=== PATIENT | male | born 1945 | race Two or more races ===

== ENCOUNTER 2021-12-16 09:37 | Emergency (ER) | payer OTHER, SELFPAY ==
--- NOTE | ~2021-12-16 | CT_ITS ---
EXAMINATION: CT HEAD WITHOUT CONTRAST CLINICAL INFORMATION: Right-sided facial paralysis COMPARISON: None TECHNIQUE: Contiguous axial imaging was performed from the skull base to vertex without intravenous administration of contrast. This CT examination was performed using dose optimization techniques as appropriate, variously including the following: *Automated exposure control *Adjustment of mA and/or kV according to patient size (this includes techniques or standardized protocols for targeted exams where dose is matched to indication/reason for exam; i.e. extremities or head) *Use of iterative reconstruction technique DLP: 774 mGy-cm FINDINGS: Prominence to the sulci and ventricles noted consistent with involutional change. No evidence of intra or extra-axial fluid collection or hemorrhage, mass or thickening. Calvarium is intact. CT/CT head/brain wo con IMPRESSION: No acute intracranial abnormalities.
[2021-12-16 09:56] VITALS: BP 166/78; PULSE 74; RESP 18; TEMP 36.9; O2SAT 98; BMI 25.5
[2021-12-16 14:18] VITALS: BP 160/92; PULSE 86; RESP 16; O2SAT 98
--- NOTE | 2021-12-16 14:42 | ED_ITS ---
HPI - General Adult General Chief complaint: Eye Problems Stated complaint: r eye itchy and swollen Time Seen by Provider: 12/16/21 13:56 Source: patient Mode of arrival: ambulatory History of Present Illness HPI narrative: 76-year-old male with no significant past medical history presenting to the ED complaining of right eye burning and itching x1 week. Reports acute on chronic clouding to right eye which improves after rubbing. Family member also reports right-sided facial asymmetry x1 week, and patient reports slow gait. Denies headache, fall, vision loss, nausea, vomiting, CP/SOB, focal weakness, numbness/tingling Onset (ago): week(s) Related Data Previous Rx's Medication Instructions Recorded carboxymethylcellulose sodium 1 % 1 drp ophthalmic-Right QID #15 mL 12/16/21 eye drops (Artificial Tears (carboxymethylcellulose)) prednisone 10 mg tablet 10 mg PO DAILY #45 tabs 12/16/21 valacyclovir 1 gram tablet 1,000 mg PO TID 7 days #21 tabs 12/16/21 Allergies Allergy/AdvReac Type Severity Reaction Status Date / Time No Known Allergies Allergy Verified 12/16/21 14:17 Review of Systems Review of Systems: Constitutional: No Fever, No Chills, No Night Sweats, No Fatigue, No Malaise ENT/Mouth: No Ear Pain, No Nasal Congestion, No Sinus Pain, No Hoarseness, No sore throat, No Rhinorrhea, No Swallowing Difficulty Eyes: No Eye Pain, No Swelling, No Vision Changes, +eye burning and itching, +blurry vision Cardiovascular: No Chest Pain, No SOB, No Edema, No Palpitations Respiratory: No Cough, No Sputum, No Wheezing, No Dyspnea Gastrointestinal: No Nausea, No Vomiting, No Diarrhea, No Constipation, No Abdominal pain Genitourinary: No Dysuria, No Urinary Frequency, No Hematuria, No Urinary Incontinence/retention, No Flank Pain Musculoskeletal: No joint pain, No Myalgias, No Joint Swelling Skin: No Skin Lesions, No rash Neuro: + Weakness, No Numbness, No Paresthesias, No Loss of Consciousness, No Dizziness, No Headache Yes all other systems are reviewed and are negative Constitutional: Constitutional: Reports as per HPI Neurologic: Reports Abnormal speech present [facility] Past Medical History Attestation statement: The following information was validated with the patient. Social History Social History Alcohol intake: never Patient Tobacco Use Status: Never used Tobacco Use of substances other than those prescribed or required for medical reasons: No Advance Directives: No Advance Directives Information Provided: No Physical Exam ED Vital Signs: Vital Signs - 24 hr 12/16/21 09:56 12/16/21 14:18 Temperature 98.4 F Pulse Rate 74 86 Respiratory Rate 18 16 Blood Pressure 166/78 H 160/92 H Pulse Oximetry 98 98 Oxygen Delivery Method Room Air Room Air BMI result Body Mass Index 25.5 Const General: cooperative, healthy appearing and no acute distress Orientation/consciousness: patient oriented x3 Limitations: no limitations HENMT Head: Yes normal to inspection and Yes atraumatic Ears: hearing grossly normal bilaterally, external ears normal, TM's normal bilaterally and mastoids normal General nose exam: Normal external nose present Face and sinus: Yes normal facial exam Mouth: Normal oral and palatal mucosa present and tongue normal Throat: Yes posterior oropharynx normal, Yes tonsils normal and Yes uvula midline Eyes Other: Right eye not blinking General: appearance normal, both eyes and all related structures EOM: EOMs intact bilaterally Neck Neck: Yes normal visual inspection and Yes no meningeal signs Resp Effort & Inspection: normal respiratory effort and no respiratory distress Auscultation: clear to auscultation bilaterally Cardio Rate: regular rate Heart sounds: S1 normal heart sound present and S2 normal heart sound present GI Inspection: Yes normal to inspection Palpation (GI): Soft to palpation, nontender, no guarding and not rigid General: Yes no CVA tenderness Back/Spine/Pelvis Back: no CVA tenderness Skin Rashes: no rashes Wounds: no wounds Neuro Other: + right-sided facial paralysis. Patient minimally able to raise eyebrows to right side (suspect Gordon's palsy recovery phase) General: patient oriented x3, tone normal and no meningeal signs Cognition (Neuro): normal cognition Speech: Abnormal speech present Gait exam (Neuro): Normal gait present (Steady slow gait) Motor exam (neuro): 5/5 motor strength present throughout Extrem General: Yes normal to inspection Course Course Course Narrative: -1554--no leukocytosis. Labs unremarkable CT head/brain wo con IMPRESSION: No acute intracranial abnormalities. ? -used fluorescein staining to evaluate patient's right eye, no appreciable corneal abrasions or ulcerations. > results discussed with patient with sleeve tailor including worrisome signs and symptoms and strict return precautions and need close follow-up with PCP. Medical Decision Making MDM Narrative Medical decision making narrative: 76-year-old male with no significant past medical history presenting to the ED complaining of right eye burning and itching x1 week. Reports acute on chronic clouding to right eye which improves after rubbing. Family member also reports right-sided facial asymmetry x1 week, and patient reports slow gait. On exam vital signs stable, right-sided facial paralysis noted with inability to blink right eye. 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 Case discussed with Dr. Christianson who also evaluated patient and is in agreement with plan. Slow steady gait. No ataxia. No other focal neuro deficits. Concern for subacute CVA/TIA. Eye complains suspected secondary to being unable to close eye. Plan: EKG, labs, Lyme titer, HSV, Head CT Medical Records Medical records reviewed: Yes I reviewed the patient's medical records. Lab Data Lab results reviewed: Yes I reviewed the patient's lab results. Result diagrams: 12/16/21 14:36 12/16/21 14:36 Labs: Lab Results 12/16/21 12/16/21 12/16/21 Range/Units 14:36 14:36 14:36 WBC 9.7 (4.8-10.8) X10*3/uL RBC 5.23 (4.60-5.80) X10*6/uL Hgb 14.9 (14.0-18.0) g/dl Hct 45.1 (42.0-52.0) % MCV 86.2 (80.0-98.0) fL MCH 28.5 (27.0-33.0) pg MCHC 33.0 (31.0-36.0) g/dl RDW 12.9 (11.0-16.0) % Plt Count 227 (160-400) X10*3/uL MPV 11.4 (9.4-12.4) fL Immature Gran % (Auto) 0.2 (0.0-0.4) % Neut % (Auto) 61.1 (45-73) % Lymph % (Auto) 27.5 (20-40) % [place] % (Auto) 10.1 (2-11) % Eos % (Auto) 0.7 (0-4) % Baso % (Auto) 0.4 (0-2) % Lymph # (Auto) 2.7 (1.2-4.9) X10*3/uL [place] # (Auto) 1.0 (0.1-1.2) X10*3/uL Eos # (Auto) 0.1 (0.0-0.4) X10*3/uL Baso # (Auto) 0.0 (0.0-0.2) X10*3/uL Abs Immat Gran (auto) 0.02 (0.00-0.03) X10*3/uL Absolute Neuts (auto) 5.9 (2.0-8.3) x10*3/uL Absolute Nucleated RBC 0.000 (0.0-0.012) X10*3/uL Nucleated RBC % (auto) 0.0 (0.0-0.2) /100WBC PT 12.3 (10.0-13.1) SEC INR 1.1 (0.9-1.1) APTT 32.2 (24.1-38.0) SEC Sodium 141 (135-145) mmol/L Potassium 4.4 (3.3-5.1) mmol/L Chloride 105 (96-108) mmol/L Carbon Dioxide 29 (22-29) mmol/L Anion Gap 11 L (12-20) BUN 15 (9-16) mg/dL Creatinine 1.16 (0.5-1.4) mg/dL Estim Creat Clear Calc 53.2 Estimated GFR > 60 Random Glucose 133 H (60-115) mg/dL Calcium 9.8 (8.4-10.2) mg/dL Magnesium 2.2 (1.6-2.6) mg/dL Total Bilirubin 0.5 (0.0-1.0) mg/dL Direct Bilirubin 0.2 (0.0-0.5) mg/dL AST 27 (5-37) U/L ALT 37 (0-40) U/L Alkaline Phosphatase 79 (39-117) U/L C-Reactive Protein 0.29 (< or = 0.50) mg/dL Total Protein 8.2 H (6.5-8.0) g/dL Albumin 4.4 (3.5-5.0) g/dL Discharge Plan Discharge Clinical Impression: Gordon's palsy Patient Disposition: Home, Self-Care Instructions: Gordon Palsy (ED) Additional Instructions: Your head CT is unremarkable. Your blood work was reassuring. 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 This may take weeks to months to improved/resolved. You should be performing facial exercises at home. Tape your eye shut at night so it does not get dry. Use artificial tears as needed Acyclovir is a and antiviral medication, take as prescribed. In addition take prednisone which is steroid Please of close follow-up with your doctor. If symptoms persist or worsen, you develop constant worsening weakness, headache return to the emergency department Tu tomograf?a computarizada de la phoebe no tiene nada especial. Thomas an?lisis de reema fue tranquilizador. Tiene par?lisis de Gordon, que es par?lisis del nervio facial. [place] puede tardar semanas o meses en mejorarse o resolverse. Deber?as estar realizando ejercicios faciales en casa. Divya el andre con cinta adhesiva por la noche para que no se seque. Use l?grimas artificiales seg?n sea necesario El aciclovir es un medicamento antiviral, t?vincent seg?n lo prescrito. Adem?s, tome prednisona que es un esteroide. Por favor de seguimiento cercano con thomas m?dico. Si los s?ntomas persisten o empeoran, desarrolla awilda debilidad que empeora constantemente, dolor de phoebe, regrese al departamento de emergencias. Prescriptions: New valacyclovir 1 gram tablet 1,000 mg PO TID 7 Days Qty: 21 0RF prednisone 10 mg tablet 10 mg PO DAILY Qty: 45 0RF Rx Instructions: Day 1 through Day 5: Take 60 mg (6 tabs) daily Day 6: Take 50 mg (5 tabs) Day 7: Take 40 mg (4 tabs) Day 8: Take 30 mg (3 tabs) Day 9: Take 20 mg (2 tabs) Day 10: Take 10 mg (1 tab) Artificial Tears (cmc) 1 % drops 1 drp ophthalmic-Right QID Qty: 15 0RF Referrals: [facility] [place] [facility] [Provider Group] [facility] [place] Community Navigation [Provider Group] [facility] [place] Primary CareAmirah [Provider Group] [facility] Primary CareTasha [Provider Group] [facility] Walk [facility] [Provider Group] Print Language: Kazakh
[2021-12-16 14:47] LABS: MANUAL DIFF FLAG NO
[2021-12-16 14:48] LABS: Basophils Percent Auto 0.4 % (0-2); Eosinophils Absolute Auto 0.1 X10*3/uL (0.0-0.4); Eosinophils Percent Auto 0.7 % (0-4); Hematocrit 45.1 % (42.0-52.0); Hemoglobin 14.9 g/dl (14.0-18.0); Imm Gran Abs Auto 0.02 X10*3/uL (0.00-0.03); Imm Gran Pct Auto 0.2 % (0.0-0.4); Lymphocytes Absolute Auto 2.7 X10*3/uL (1.2-4.9); Lymphocytes Percent Auto 27.5 % (20-40); Mean Corpuscular Hemoglobin 28.5 pg (27.0-33.0); Mean Corpuscular Volume 86.2 fL (80.0-98.0); Mean Platelet Volume 11.4 fL (9.4-12.4); Monocytes Percent Auto 10.1 % (2-11); Neutrophils Absolute Auto 5.9 x10*3/uL (2.0-8.3); Neutrophils Percent Auto 61.1 % (45-73); Platelet Count 227 X10*3/uL (160-400); Red Blood Count 5.23 X10*6/uL (4.60-5.80); Red Cell Distribution Width 12.9 % (11.0-16.0); White Blood Count 9.7 X10*3/uL (4.8-10.8)
[2021-12-16 14:56] LABS: INTERNATIONAL NORM RATIO 1.1 (0.9-1.1); Prothrombin Time 12.3 SEC (10.0-13.1)
[2021-12-16 14:59] LABS: Partial Thromboplastin Time 32.2 SEC (24.1-38.0)
[2021-12-16 15:07] LABS: Alanine Aminotransferase 37 U/L (0-40); Albumin Level 4.4 g/dL (3.5-5.0); Alkaline Phosphatase 79 U/L (39-117); Anion Gap 11 (12-20); Aspartate Amino Transferase 27 U/L (5-37); Bilirubin Direct 0.2 mg/dL (0.0-0.5); Bilirubin Total 0.5 mg/dL (0.0-1.0); Blood Urea Nitrogen 15 mg/dL (9-16); C Reactive Protein 0.29 mg/dL (< or = 0.50); Calcium 9.8 mg/dL (8.4-10.2); Carbon Dioxide 29 mmol/L (22-29); Chloride 105 mmol/L (96-108); Creatinine Clr Calc Pharmacy 53.2; Estimated Glomerular Filt Rate > 60; Glucose Random 133 mg/dL (60-115); Magnesium 2.2 mg/dL (1.6-2.6); Potassium 4.4 mmol/L (3.3-5.1); Sodium 141 mmol/L (135-145); Total Protein 8.2 g/dL (6.5-8.0)
[2021-12-16 18:38] LABS: Erythrocyte Sedimentation Rate 14 MM/HR (0-15)
[2021-12-18 05:12] LABS: Lyme Blot 0.93 index
[2021-12-18 05:32] LABS: Herpes Simplex Type 1 IgG >58.00 index; Herpes Simplex Type 2 IgG <0.90 index
[2021-12-20 14:23] LABS: 18 KD (IgG) Band NON-REACTIVE; 23 KD (IgG) Band NON-REACTIVE; 23 KD (IgM) Band NON-REACTIVE; 28 KD (IgG) Band NON-REACTIVE; 30 KD (IgG) Band REACTIVE; 39 KD (IgM) Band NON-REACTIVE; 39KD (IgG) Band NON-REACTIVE; 41 KD (IgM) Band REACTIVE; 41KD (IgG) Band NON-REACTIVE; 45 KD (IgG) Band REACTIVE; 58 KD (IgG) Band REACTIVE; 66 KD (IgG) Band NON-REACTIVE; 93 KD (IgG) Band REACTIVE; Lyme IgG Blot Interp NEGATIVE (NEGATIVE); Lyme IgM Blot Interp NEGATIVE (NEGATIVE)
[2021-12-20 14:59] LABS: Lyme Abs Screen EQUIVOCAL
== END 2021-12-16 16:47 | disposition home or self-care (01) ==
PROVIDERS: Physician Assistant; Emergency Provider Internal Medicine
DX: G51.0 Bell's palsy (principal); H57.11 Ocular pain, right eye; H53.8 Other visual disturbances
CPT/HCPCS: 36415; 70450; 80048; 80076; 83735; 85025; 85610; 85652; 85730; 86140; 86617; 86618; 86695; 86696; 87040; 99284

== ENCOUNTER 2022-02-23 14:55 | Outpatient (REF) | payer OTHER, SELFPAY ==
--- NOTE | ~2022-02-23 | MR_ITS ---
EXAMINATION: MR LUMBAR SPINE WITHOUT CONTRAST CLINICAL INFORMATION: 76-year-old with lumbago and left sciatica. COMPARISON: None. TECHNIQUE: MRI of the lumbar spine was obtained using routine sequences without contrast. FINDINGS: Coronal Alignment: There is mild lower lumbar levocurvature. Sagittal Alignment: Trace anterolisthesis at L2-L3 without spondylolysis. Otherwise normal lumbosacral alignment. Lumbosacral Junction: Normal. 5 kqq-ptf-ujsthpa lumbar-type vertebral bodies. Vertebral Bodies: Vertebral body heights are well maintained. No compression fractures. Disc Spaces and Endplates: Severe disc space height loss at L4-L5 with partial ankylosis, disc desiccation and spondylosis at this level. Mild disc space height loss and disc desiccation at L5-S1 with spondylosis noted. Disc desiccation at L2-L3 and L3-L4 without significant disc space height loss, with prominent anterolateral spondylosis at L2-L3 and mild spondylosis at L3-L4. There is prominent anterolateral spondylosis deformans at T12-L1 and T11-T12 and a partially imaged T10-T11 level. There is mild disc space height loss and disc desiccation at T11-T12. Spinal Canal: There are congenitally short pedicles throughout the lumbar spine, with a mild degree of developmental lumbar spinal canal stenosis suspected. Bone Marrow: Type II degenerative marrow signal changes noted along the endplates at L4-L5. No suspicious marrow replacing process or bone marrow edema. Conus Medullaris: Terminates at L2. Morphology and signal is normal. Intradural Nerve Roots: Crowding of the intradural nerve roots at L2-L3, L3-L4 and L4-L5 consistent with multilevel spinal stenosis. L5-S1: Concentric disc bulging is noted with a superimposed central partially calcified disc herniation with flattening of the central dural sac with mild caudal migration. Ligament of flavum thickening is noted with mxraggzz-cp-osqhaj bilateral facet arthropathy. There is ajgy-yt-pyeuqjgx central spinal canal stenosis and severe bilateral subarticular recess stenosis, with impingement on the traversing S1 nerve roots bilaterally in the subarticular zones. Moderate bilateral neural foraminal stenosis is noted, with disc bulging filling the inferior neural foramina bilaterally and probably slightly contacting the exiting L5 nerve roots. L4-L5: There is concentric osteophytic ridging, with flattening of the ventral dural sac, with ligamentum flavum thickening and ukwi-bi-tnhkulhf facet arthropathy. There is mild central spinal canal stenosis and there is moderate right and severe left lateral recess stenosis with encroachment on the traversing left L5 nerve root. Moderate bilateral neural foraminal stenosis is noted with osteophytic ridging probably contacting the extraforaminal L4 nerve roots bilaterally. L3-L4: Concentric disc bulging is noted with right lateral concentric annular fissuring and flattening of the ventral dural sac. Ligamentum flavum thickening and moderate bilateral facet arthrosis is noted with a right-sided facet joint effusion and periarticular edema adjacent to the left facet joint with mild subchondral marrow edema consistent with active inflammatory changes at both facet joints. Severe central spinal canal stenosis is noted with the marked crowding of the intradural nerve roots with severe bilateral lateral recess stenosis and compromise of the traversing L4 nerve roots bilaterally. Moderate bilateral neural foraminal stenosis is noted with disc bulging impinging on the extraforaminal L3 nerve roots bilaterally. L2-L3: Diffuse disc bulging is noted with mild anterolisthesis. Right lateral concentric annular fissuring noted. Flattening of the ventral dural sac is noted with ligamentum flavum thickening and mild-to moderate facet arthropathy. Imqljunm-yc-gufell central spinal canal stenosis is noted with crowding of the intradural nerve roots, with severe bilateral subarticular recess stenosis. There is hpwo-jj-rweclxdt bilateral neural foraminal stenosis, with disc bulging abutting the extraforaminal L2 nerve roots bilaterally. L1-L2: Shallow broad-based left subarticular disc protrusion noted. No significant facet arthrosis. No significant canal or neural foraminal stenosis. Disc bulging at T11-T12 noted which was not imaged in the axial plane, with the bilateral facet arthrosis noted, with moderate left-sided and mild right-sided neural foraminal stenosis and mild central canal stenosis. Disc bulging contacts the ventral aspect of the spinal cord at this level without adilia cord compression. Paraspinal/Retroperitoneal: The visualized paravertebral soft tissues are unremarkable. There is a 1 cm simple-appearing exophytic cortical cyst lower pole right kidney. Limited evaluation.?No specific follow up recommended based on the current ACR Best Practice Guidelines.? MR/MR lumbar spine wo con IMPRESSION: 1. Mild lower lumbar levocurvature noted with trace anterolisthesis at L2-L3 without spondylolysis. 2. Multilevel discogenic degenerative changes and spondylosis with partial ankylosis of the L4-L5 intervertebral disc space. 3. Multilevel disc bulging and L4-L5 osteophytic ridging with multilevel bilateral facet arthropathy as discussed by level above, with severe spinal canal stenosis at L3-L4 and xqgtbudo-zk-xddwft spinal canal stenosis at L2-L3, mild spinal canal stenosis at L4-L5 and vmwt-do-rhbghllm spinal canal stenosis at L5-S1. 4. Multilevel bilateral subarticular/lateral recess stenosis as detailed by level above with multilevel traversing nerve root impingement. 5. Multilevel bilateral neural foraminal stenosis predominantly moderate in degree with multilevel exiting nerve root encroachment, most apparent at L3-L4 bilaterally.
== END 2022-02-23 14:56 | disposition home or self-care (01) ==
LOC: HO.MRI 14:55
PROVIDERS: Visit Provider Nurse Practitioner Primary Care
DX: M54.42 Lumbago with sciatica, left side (principal); G89.29 Other chronic pain
CPT/HCPCS: 72148

== ENCOUNTER 2022-05-01 13:37 | Emergency (ER) | payer OTHER, SELFPAY ==
--- NOTE | ~2022-05-01 | XR_ITS ---
EXAMINATION: XR CHEST CLINICAL INFORMATION: Cough COMPARISON: None TECHNIQUE: 2 views of the chest were obtained. FINDINGS: No significant abnormality is noted involving the heart, lungs, mediastinum, bony thorax or soft tissues. XR/XR chest 2V IMPRESSION: Unremarkable examination.
[2022-05-01 13:58] VITALS: BP 128/78; PULSE 83; RESP 16; TEMP 37.6; O2SAT 96; BMI 31.0
[2022-05-01 15:06] LABS: Influenza A PCR NEGATIVE (Negative); Influenza B PCR NEGATIVE (Negative); Resp Syncy Virus RNA Qual PCR NEGATIVE (Negative); SARS COV2 PCR INHOUSE NEGATIVE (Negative)
[2022-05-01] MEDS: Erythromycin Base 0.5% Oph Oin 1 GM TUBE 1 CM EYE-BOTH (15:17)
--- NOTE | 2022-05-01 15:30 | ED_ITS ---
HPI - Eye Problem General Chief complaint: Eye Problems Stated complaint: cough eye issue fever Time Seen by Provider: 05/01/22 14:26 Source: patient and family Mode of arrival: ambulatory Limitations: no limitations History of Present Illness HPI Narrative: 77 yo male presents to the ER for evaluation of red, swollen eyes with discharge for the last couple of days. He has also had a cough and not been feeling well. He saw his primary care doctor yesterday was prescribed loratadine and Tessalon. When he woke up this morning his eyes were crusted shut and he had purulent discharge. He reports his eyes are burning and red. He denies any vision changes. No fever or chills. No chest pain or shortness of breath but family reports he gets and coughing fits where he had a difficult time catching his breath. He is not bringing up any phlegm. No known sick contacts. MD chief complaint: eye pain and eye redness Onset (ago): day(s) Onset description: gradual Location: both eyes Eye Symptoms: redness and discharge Place: home Mechanism: none Severity: moderate If Pain, Quality: burning and aching Associated symptoms: cough Treatments Prior to Arrival: none Related Data Previous Rx's Medication Instructions Recorded carboxymethylcellulose sodium 1 % 1 drp ophthalmic-Right QID #15 mL 12/16/21 eye drops (Artificial Tears (carboxymethylcellulose)) prednisone 10 mg tablet 10 mg PO DAILY #45 tabs 12/16/21 valacyclovir 1 gram tablet 1,000 mg PO TID 7 days #21 tabs 12/16/21 doxycycline monohydrate 100 mg 100 mg PO BID 21 days #42 tabs 12/20/21 tablet azithromycin 250 mg tablet See Rx Instructions PO .COMPLEX #6 05/01/22 (Zithromax Z-Gama) tabs erythromycin 5 mg/gram (0.5 %) eye 0.5 inch ophthalmic (eye) BID #3.5 05/01/22 ointment grams Allergies Allergy/AdvReac Type Severity Reaction Status Date / Time No Known Allergies Allergy Verified 12/16/21 14:17 Review of Systems Review of Systems: Constitutional: No Fever, No Chills ENT/Mouth: No sore throat, No Rhinorrhea, No Swallowing Difficulty Eyes: + Eye Pain, + Swelling, + Redness Cardiovascular: No Chest Pain, No SOB, No Orthopnea, No Edema Respiratory: + Cough, No Sputum, No Wheezing, No dyspnea Gastrointestinal: No Nausea, No Vomiting, No Diarrhea, No abdominal Pain Musculoskeletal: No joint pain, + Myalgias Skin: No Skin Lesions, No rash Neuro: + Weakness, No Numbness, No Dizziness, + Headache Psych: No Anxiety/Panic, No Depression Heme/Lymph: No Bruising, No Lymphadenopathy PMFSH Social History Social History Alcohol intake: never Patient Tobacco Use Status: Never used Tobacco Advance Directives: No Advance Directives Information Provided: No Physical Exam Vital Signs: Vital Signs: Last Vital Signs Temp 99.6 F 05/01/22 13:58 Pulse 83 05/01/22 13:58 Resp 16 05/01/22 13:58 BP 128/78 05/01/22 13:58 Pulse Ox 96 05/01/22 13:58 O2 Del Method 05/01/22 13:58 BMI result Body Mass Index 31.0 Appearance: Alert. Oriented X3. No acute distress. Eyes: Bilateral Periorbital swelling, mild and generalized without erythema. Sclera is injected bilaterally with purulent discharge bilaterally. Pupils equal, round and reactive to light. EOMI. ENT: Pharynx normal. Moist mucous membranes. Neck: Normal inspection. Neck supple. CVS: Normal heart rate and rhythm. Pulses normal. Respiratory: No respiratory distress. Breath sounds normal. Skin: Skin warm and dry. Normal skin color. Normal skin turgor. No rashes. Extremities: No lower extremity edema. Neuro: Oriented X 3. Grossly normal, nonfocal Course Course Course Narrative: 77-year-old male presents to the ER for evaluation of swollen, puffy eyes associated with redness and purulent drainage, that is worsening for the last few days. Family also reports a cough. On arrival to the ER he has a low-grade fever of 99.6. He is hemodynamically stable and saturating 96% on room air. He appears well but does have uncomfortable appearing purulent drainage from his eyes. Most likely bacterial conjunctivitis. Will check viral swabs. Will check chest x-ray given cough. Reevaluation(s) Reevaluation #1: Chest x-ray is clear no pneumonia. Viral PCR is negative. He was given erythromycin ointment with improvement in his eye symptoms. Will prescribe anti biotics for probable bronchitis. He was encourage follow-up with his primary care doctor. Stable for discharge home with outpatient follow-up. Medications Administered Discontinued Medications Generic Name Dose Route Start Last Admin Trade Name Stacey PRN Reason Stop Dose Admin Erythromycin 1 cm 05/01/22 14:38 05/01/22 15:17 Erythromycin Base 0.5% Oph Oin 1 Gm Tube EYE-BOTH 05/01/22 14:39 1 cm ONCE ONE Administration Discharge Plan Discharge Clinical Impression: Bacterial conjunctivitis, Bronchitis Patient Disposition: Home, Self-Care Instructions: Acute Bronchitis (ED), Conjunctivitis (ED) Additional Instructions: Your x-ray today did not show any signs of pneumonia. Urine negative for COVID, flu, RSV. Use the prescribed antibiotic ointment as directed. Use warm compresses to her eyes several times a day. Take the prescribed antibiotic as directed, complete the entire course. Rest drink plenty of fluids. Take wcka-klz-vmpblro cold and flu medications as needed for your symptoms. Recommend Mucinex 1200 mg 2 times a day for 5 days. Follow-up with primary care doctor next week. If you develop new or worsening symptoms call 911 or come back to the ER for further evaluation. Thomas radiograf?a de hoy no mostr? signos de neumon?a. Orina negativa para COVID, gripe, RSV. Use la pomada antibi?dara recetada seg?n las indicaciones. Use compresas tibias en vivian ojos varias veces al d?a. [place] el antibi?naveed recetado seg?n las indicaciones, complete todo el curso. Descansa kash muchos l?quidos. [place] medicamentos de venta jeff para el resfriado y la gripe seg?n sea necesar io para vivian s?ntomas. Recomiende Mucinex 1200 mg 2 veces al d?a marichuy 5 d?as. Seguimiento con el m?dico de atenci?n primaria la pr?xima semana. Si desarrolla s?ntomas nuevos o que empeoran, llame al 911 o regrese a la roxanna de emergencias para awilda evaluaci?n adicional. Prescriptions: New erythromycin 5 mg/gram (0.5 %) ointment 0.5 inch ophthalmic (eye) BID Qty: 3.5 0RF azithromycin [Zithromax Z-Gama] 250 mg tablet See Rx Instructions .ROUTE .COMPLEX Qty: 6 0RF Rx Instructions: take 500 mg today (day 1), then 250 mg for 4 days (days 2-5) No Action valacyclovir 1 gram tablet 1,000 mg PO TID 7 Days Qty: 21 0RF prednisone 10 mg tablet 10 mg PO DAILY Qty: 45 0RF Rx Instructions: Day 1 through Day 5: Take 60 mg (6 tabs) daily Day 6: Take 50 mg (5 tabs) Day 7: Take 40 mg (4 tabs) Day 8: Take 30 mg (3 tabs) Day 9: Take 20 mg (2 tabs) Day 10: Take 10 mg (1 tab) Artificial Tears (cmc) 1 % drops 1 drp ophthalmic-Right QID Qty: 15 0RF doxycycline monohydrate 100 mg tablet 100 mg PO BID 21 Days Qty: 42 0RF Referrals: Name,MD Alex [Primary Care Provider] - Print Language: Tajik
== END 2022-05-01 15:40 | disposition home or self-care (01) ==
PROVIDERS: Physician Assistant; Emergency Provider Emergency Medicine; PCP Internal Medicine Geriatric Medicine
DX: J40 Bronchitis, not specified as acute or chronic (principal); H10.9 Unspecified conjunctivitis; R50.9 Fever, unspecified; Z20.822 Contact with and (suspected) exposure to COVID-19
CPT/HCPCS: 0241U; 71046; 99282; 99283

== ENCOUNTER 2022-06-29 10:18 | Outpatient (REF) | payer OTHER, SELFPAY | END 2022-06-29 10:19 | disposition home or self-care (01) | LOC: HO.LAB 10:18 | PROVIDERS: PCP Internal Medicine Geriatric Medicine; Visit Provider Urology | DX: N39.0 Urinary tract infection, site not specified (principal); N47.1 Phimosis | CPT/HCPCS: 51798; 87086; 99202 ==

== ENCOUNTER → 2022-07-02 13:39 | Outpatient (REF) | payer OTHER, SELFPAY ==
--- NOTE | 2022-07-02 14:43 | CA_ITS ---
Transthoracic Echocardiogram Patient (Last, First, Middle): Pepe Chau, Gender: Male Date of : 1945 Age: 77 Procedure Date: 07/02/2022 Procedure Type: Transthoracic Echocardiogram Location: OP Height: 175.26 cm Weight: 96.16 kg BSA: 2.12 m2 Heart Rate: bpm BP: 140 / 84 mmHg Storage Garage Manager: ALESSIO Referring MD: Alex Khoury MD Equine Dentist: Ash Gracia MD Symptoms: CARDIAC MURMUR,UNSPECIFIED Study Quality: Good ECG Rhythm: Sinus Conclusions: - 1. Normal LV systolic function with mild LVH with impaired relaxation filling pattern 2. Udbk-uw-huaemmhc aortic stenosis and mild aortic regurgitation 3. Normal RV systolic pressure 4. Mildly dilated ascending aorta at 3.8 cm 5. No pericardial effusion Findings Left Ventricle Normal left ventricular size and systolic function. There is mildly increased left ventricular wall thickness. The visually estimated ejection fraction is between 60-65%. Spectral Doppler is indicative of an impaired relaxation filling pattern. E/E prime ratio is between 8 and 15 consistent with indeterminate filling pressures. Right Ventricle Normal right ventricular cavity size and systolic function. Atria The left atrium is likely dilated. There is no evidence of interatrial shunt. The right atrium is normal in size. Aortic Valve There is moderate calcification of the aortic valve. There is mild to moderate aortic valve stenosis. The mean gradient is 26 mmHg. The aortic valve area is 1.54 cm2. There is mild aortic valve regurgitation. Mitral Valve There is mild anterior and posterior mitral leaflet thickening. There is mild mitral annular calcification. There is trace mitral valve regurgitation. There is no mitral valve stenosis. Pulmonic Valve The pulmonic valve was not well visualized. Tricuspid Valve Normal tricuspid valve structure. There is mild tricuspid valve regurgitation. The right ventricular systolic pressure is normal. The right ventricular systolic pressure is 28 mmHg. Normal right atrial pressure. There is no evidence of pulmonary hypertension. Great Vessels There is mild dilatation of the ascending aorta measuring 3.80 cm. Venous The inferior vena cava is normal in size and collapses greater than 50% with inspiration. Pericardium/Pleural There is no evidence of pericardial effusion. Prior Study Comparison No prior study available for comparison. Measurements 2D Linear Measurements IVSd: 1.54 0.6-0.9/0.6-1.0 cm LVIDd: 4.13 3.9-5.3/4.2-5.9 cm LVIDd Index: 1.95 2.4-3.2/2.2-3.1 cm/m2 LVIDs: 2.39 2.0-3.6 cm LVPWd: 1.32 0.7-1.1 cm Ao Root: 3.30 2.1-3.5 cm LA Diam: 3.60 2.7-3.8/3.0-4.0 cm LAIDs Index: 1.70 1.5-2.3 cm/m2 LV Mass: 281.93 67-162/88-224 g LV Mass Index: 132.99 43-95/49-115 g/m2 LVOT Diam: 2.30 3.0+(-)1.3 cm Mitral Valve MV Pk E: 0.69 MV PK A: 0.67 MV Decel Time: 140.00 E/A: 1.00 E'Lateral: 7.94 E'Medial: 5.98 E/E' Med: 11.50 E/E' Lat: 8.60 PHT: 41.00 MVA PHT: 5.37 Decel [place]: 4.90 Aortic Valve AoV Pk Dylon: 3.57 AoV Mn Dylon: 2.36 AoV VTI: 0.80 AoV Pk Grad: 51.00 Aov Mn Grad: 26.00 IRWIN Cont.VTI: 1.54 LVOT LVOT Pk Dylon: 1.19 LVOT Mn Dylon: 0.83 LVOT VTI: 0.30 LVOT Pk Grad: 6.00 LVOT Mn Grad: 3.00 LVOT Diam: 2.30 LVOT Area: 4.15 Diastolic Function MV Pk E: 0.69 MV Pk A: 0.67 E/A: 1.00 E'Medial: 5.98 E/E' Med: 11.50 E' Laterial: 7.94 E/E' Lat: 8.60 Right Ventricle TAPSE (mm): 27.00 TVS' Dylon: 14.00 Tricuspid Valve TR Pk Dylon: 2.48 TR Pk Grad: 25.00 RA Press: 3.00 RVSP: 28.00 Great Vessels Aorta Ao Root-2D: 3.30 2.0-3.7 cm Ao Asc: 3.80 2.1-3.4 cm Updated in Other Vendor System with Status of Final Ash Gracia MD electronically signed on 07/03/2022 3:02:06 PM with status of Final
== END ==
LOC: HO.CARD 13:39
PROVIDERS: PCP Internal Medicine Geriatric Medicine; Visit Provider Internal Medicine Geriatric Medicine
DX: R01.1 Cardiac murmur, unspecified (principal)
CPT/HCPCS: 93306

== ENCOUNTER 2022-10-17 12:41 | Emergency (ER) | payer OTHER, SELFPAY ==
--- NOTE | ~2022-10-17 | CT_ITS ---
EXAMINATION: CT CERVICAL SPINE WITHOUT CONTRAST CLINICAL INFORMATION: Neck pain COMPARISON: None available. TECHNIQUE: 3 minutes thin axial and reformatted 2 minutes thin sagittal coronal images of cervical spine were obtained without contrast. This CT examination was performed using dose optimization techniques as appropriate, variously including the following: *Automated exposure control *Adjustment of mA and/or kV according to patient size (this includes techniques or standardized protocols for targeted exams where dose is matched to indication/reason for exam; i.e. extremities or head) *Use of iterative reconstruction technique DLP: 623 mGy-cm FINDINGS: There is normal cervical lordosis. The vertebral heights, alignment and disc heights are normal. There is moderate ventral spondylosis C4-C5 C5-C6 and C6-C7 disc levels and mild posterior spondylosis at C3-C4, C5-C6 disc levels. The craniovertebral junction and the C1-C2 alignment is normal. There is moderate C1-C2 hypertrophic bony changes. At C3-C4 disc level there is posterior spondylosis bulge complex with mild to moderate AP canal stenosis. There is moderate right neural foraminal narrowing from uncovertebral atrophy changes. At C4-C5 disc level there is no cement is posterior herniation or spinal stenosis. There is mild narrowing of right neural foramina from uncovertebral hypertrophic changes. At C5-C6 disc level there is no sign of disc bulge, herniation or spinal stenosis. At C6-7 disc level there is moderate posterior spondylosis bulge complex with mild to moderate AP canal stenosis. There is bilateral moderate right neural from narrowing from uncovertebral hypertrophic changes. Rest of the disc levels are unremarkable. The prevertebral and paravertebral soft tissues are normal the. The airway is widely patent. Prevertebral and bilateral soft tissues are normal. The lung apices are clear. Thyroid lobes, submandibular and parotid glands are symmetric and normal. There is mild mucoperiosteal thickening bilateral maxillary sinuses. CT/CT cervical spine wo IV con IMPRESSION: Degenerative changes of cervical spine as described above. No visible acute fracture or dislocation. Fleischner guidelines were followed.
[2022-10-17 12:43] VITALS: BP 145/77; PULSE 96; RESP 20; TEMP 36.1; O2SAT 98; BMI 29.5
[2022-10-17] MEDS: Ketorolac Tromethamine 30 MG/ML VIAL IM (14:48)
[2022-10-17] MEDS: Cyclobenzaprine HCl 10 MG TABLET PO (14:49)
[2022-10-17] MEDS: predniSONE 20 MG TABLET 60 MG PO (14:49)
--- NOTE | 2022-10-17 15:48 | ED_ITS ---
HPI - General Adult General Chief complaint: Extremity Problem Stated complaint: Neck Pain No Injury Time Seen by Provider: 10/17/22 13:38 Source: patient Mode of arrival: ambulatory Limitations: no limitations History of Present Illness HPI narrative: 89-year-old male history of diabetes, Gordon's palsy, and lumbar spine arthritis presents to the ED for neck pain for the past 4 days as worse on movement. Patient states he has been sleeping with airplane Pillow and thinks that is causing him to have the neck pain due to sleeping awkward position. Patient denies any trauma, headache, chest pain, fever, chills, dizziness, or rash. Related Data Home Medications Medication Instructions Recorded Confirmed atorvastatin 10 mg tablet 10 mg PO DAILY 06/29/22 08/17/22 tamsulosin 0.4 mg capsule 0.8 mg PO QPM 06/29/22 08/17/22 baclofen 20 mg tablet 20 mg PO TID 08/17/22 08/17/22 nabumetone 750 mg tablet 750 mg PO BID PRN Pain 08/17/22 08/17/22 sitagliptin phosphate 50 1 tab PO QPM 08/17/22 08/17/22 mg-metformin 1,000 mg tablet (Janumet) Previous Rx's Medication Instructions Recorded valacyclovir 1 gram tablet 1,000 mg PO TID 7 days #21 tabs 12/16/21 ketorolac 10 mg tablet 10 mg PO QID PRN pain 5 days #20 10/17/22 tabs prednisone 20 mg tablet 40 mg PO DAILY 5 days #10 tabs 10/17/22 Allergies Allergy/AdvReac Type Severity Reaction Status Date / Time No Known Allergies Allergy Verified 06/29/22 10:26 Review of Systems Review of Systems: Posterior neck pain Yes all other systems are reviewed and are negative [facility] Past Medical History Medical History (Updated 10/17/22 @ 15:57 by SHEREE Howard) Gordon's palsy BPH (benign prostatic hyperplasia) Chronic back pain Diabetes mellitus, type II Elevated cholesterol Lyme disease Nocturia Phimosis Spinal stenosis Surgical History (Updated 08/17/22 @ 11:32 by Ritu Martinez RN) No pertinent past surgical history Social History Social History Housing Other:: 2nd floor Are you a primary director career services to a significant other at home: No Do you presently have visiting nurse or other home services: No Alcohol intake: never Patient Tobacco Use Status: Never used Tobacco Advance Directives: No Advance Directives Information Provided: Yes Physical Exam ED Vital Signs: Vital Signs - 24 hr 10/17/22 12:43 Temperature 96.9 F Pulse Rate 96 Respiratory Rate 20 Blood Pressure 145/77 H Pulse Oximetry 98 Oxygen Delivery Method Room Air BMI result Body Mass Index 29.5 Const General: cooperative, healthy appearing, comfortable, no acute distress, well developed, alert, awake and Physically active Orientation/consciousness: oriented to person, oriented to place, oriented to time and patient oriented x3 HENMT Head: Yes normal to inspection, Yes No palpable skull fracture present, Yes normocephalic, Yes atraumatic and No abrasion Eyes General: appearance normal, both eyes and all related structures Pupils: Equal, round and reactive pupils present Neck Neck: Yes normal visual inspection, Yes full ROM, Yes no lymphadenopathy, Yes no meningeal signs, Yes trachea midline, Yes supple, No anterior neck swelling, No bilateral parotid enlargement, No lymphadenopathy, No midline deformity, No positive Brudzinski's sign, No positive Kernig's sign and Yes tender (Positive for posterior cervical spine tenderness on palpation and movement) Chest Chest palpation & inspection: normal inspection of the chest and normal palpation of entire chest wall Resp Effort & Inspection: normal respiratory effort and able to speak in complete sentences Auscultation: clear to auscultation bilaterally Cardio Jugular venous distension: no JVD Heart sounds: S1 normal heart sound present and S2 normal heart sound present GI Inspection: Yes normal to inspection and No abdominal wall ecchymosis Palpation (GI): Soft to palpation, not firm, nontender, no guarding and not rigid General: No CVA tenderness and Yes no CVA tenderness Back/Spine/Pelvis Back: no CVA tenderness, No CVA tenderness and No back tenderness Skin General skin exam: no rashes or lesions noted and elasticity normal Neuro General: oriented to person, oriented to place, oriented to time, patient oriented x3, gait normal, tone normal, moves all extremities, Normal light touch and pain sensation, no meningeal signs, no focal motor deficits, CN's II-XI intact bilaterally and normal sensation to monofilament Cranial nerves: Yes Equal, round and reactive pupils present Extrem General: Yes normal to inspection and Yes full ROM Psych Appearance: grossly normal, well kempt and not disheveled Course Course Course Narrative: 77-year-old with posterior neck pain will be sent for cervical spine CT. Medications Administered Discontinued Medications Generic Name Dose Route Start Last Admin Trade Name Stacey PRN Reason Stop Dose Admin Cyclobenzaprine HCl 10 mg 10/17/22 14:00 10/17/22 14:49 Cyclobenzaprine Hcl 10 Mg Tablet PO 10/17/22 14:01 10 mg ONCE ONE Administration Ketorolac Tromethamine 30 mg 10/17/22 14:00 10/17/22 14:48 Ketorolac Tromethamine 30 Mg/Ml Vial IM 10/17/22 14:01 30 mg ONCE ONE Administration Prednisone 60 mg 10/17/22 14:00 10/17/22 14:49 Prednisone 20 Mg Tablet PO 10/17/22 14:01 60 mg ONCE ONE Administration Medical Decision Making Medical Decision Making MDM Narrative: 77-year-old male presents to the ED for cervical spine pain/neck pain worse on movement. Patient denies any trauma, fever, chills, or headache. Physical exam negative for signs of meningitis. Cervical spine CT scan shows cervical radic ulopathy. Negative for signs of upper extremity contrapment or paralysis on exam. Neuro exam intact of all extremities. Negative for signs of neuro deficit. Patient given Toradol, prednisone, and muscle relaxer Differential Diagnosis Differential Diagnoses: The differential diagnosis associated with the presentation includes (Cervical spine fracture, cervical spine subluxation, meningitis, cervical radiculopathy) Admission/Observation Consideration of admission/observation: Escalation of care including admission/observation considered Independent Interpretation I performed an independent interpretation of an: CT Scan Radiology Impression Discussion of test interpretation with radiology: I have reviewed the radiologist's reading. Tests considered The following testing was considered but not selected: hEad CT Prescription Management I considered prescription management with: Pain Medication Discharge Plan Discharge Clinical Impression: Cervical radiculopathy Patient Disposition: Home, Self-Care Instructions: Cervical Radiculopathy (ED) Additional Instructions: Thomas tomograf?a computarizada de thomas clark mostr? awilda radiculopat?a cervical severa que es indicativa de artritis degenerativa. Necesita un seguimiento con el proveedor de atenci?n primaria para areli si se realiz? awilda resonancia magn?dara para verificar si hay alg?n pinzamiento nervioso y tambi?n ser remitida a fisioterapia o cirujano de columna si es necesario. Regrese al servicio de urgencias de inmediato si presenta par?lisis en las extremidades superiores, entumecimiento/hormigueo, dolor en el pecho, dificultad para respirar, dolor de phoebe, mareos, fiebre, escalofr?os o cualquier otro s?ntoma preocupante. Prescriptions: New prednisone 20 mg tablet 40 mg PO DAILY 5 Days Qty: 10 0RF ketorolac 10 mg tablet 10 mg PO QID PRN (Reason: pain) 5 Days Qty: 20 0RF Rx Instructions: received 30mg IM in the ED No Action valacyclovir 1 gram tablet 1,000 mg PO TID 7 Days Qty: 21 0RF Janumet 50-1,000 mg tablet 1 tab PO QPM nabumetone 750 mg Tablet 750 mg PO BID PRN (Reason: Pain) baclofen 20 mg Tablet 20 mg PO TID atorvastatin 10 mg tablet 10 mg PO DAILY tamsulosin 0.4 mg capsule 0.8 mg PO QPM Interventions: ED Discharge Assessment Last Done: 10/17/22 16:37 Discharge Date/Time: 10/17/22 16:38 Print Language: Ukrainian
== END 2022-10-17 16:38 | disposition home or self-care (01) ==
PROVIDERS: Emergency Provider Internal Medicine; PCP Internal Medicine Geriatric Medicine
DX: M54.12 Radiculopathy, cervical region (principal)
CPT/HCPCS: 72125; 96372; 99283; 99284; J1885

== ENCOUNTER 2023-01-20 10:59 | Outpatient (AMB) | payer OTHER, SELFPAY ==
[2023-01-20 11:05] VITALS: BP 140/70; PULSE 69; BMI 28.6
--- NOTE | 2023-01-20 11:05 | MHC.OFFVIS ---
Intake Vital Signs 01/20/23 11:05 Height 5 ft 9 in Weight 194 lb 0.108 oz BMI 28.6 BP 140/70 H Blood Pressure Location Rt brachial Position Sitting Pulse 69 Intake Visit Reasons: NPV/Dr. Name/Abnormal EKG Intake Note: npv with ekg Solar Panel Installer Required: Yes Solar Panel Installer Name: [email or web address] [id number] Allergies No Known Allergies Allergy (Verified 01/20/23 11:14) Medication List - Last Reconciled 01/20/23 by Jacobo Woodall MD atorvastatin 10 mg PO DAILY sitagliptin phos-metformin 50-1,000 mg (Janumet) 1 tab PO QPM tamsulosin 0.8 mg PO QPM HPI HPI Comments History of Present Illness Details Maria Antonia is been referred for cardiac evaluation. Per PCP note, reported atypical chest pain, dizziness, abnormal EKG/right bundle-branch block, aortic stenosis on echo. Patient denies any history of coronary artery disease myocardial infarction or cardiomyopathy. To me he denies any clear-cut anginal-type symptoms but according to PCP note, he had mentioned chest discomfort. Diabetic and also with dyslipidemia on appropriate medications. Patient states he may also need back surgery. [facility] Medical History (Updated 01/20/23 @ 11:49 by Jacobo Woodall MD) Gordon's palsy BPH (benign prostatic hyperplasia) Chronic back pain Diabetes mellitus, type II Elevated cholesterol Lyme disease Nocturia Phimosis RBBB Spinal stenosis Surgical History No pertinent past surgical history Social History Housing Other:: 2nd floor Are you a primary pediatric critical care nurse to a significant other at home: No Do you presently have visiting nurse or other home services: No Alcohol intake: never Patient Tobacco Use Status: Never used Tobacco Review of Systems ENT Reports dizziness Card Denies chest pain, Denies chest pain at rest, Denies chest pain with activity, Denies rapid heart rate, Denies pedal edema, Denies edema, Denies leg edema, Denies lightheadedness, Denies palpitations, Denies dyspnea, Denies dyspnea on exertion and Denies orthopnea Resp Denies cough, Denies dyspnea and Denies dyspnea on exertion GI Denies hematochezia and Denies change in stool character Musc Denies abnormal gait, Reports limited range of motion, Reports muscle cramps, Denies muscle weakness, Denies numbness, Denies radiating pain into limb, Denies stiffness and Denies tingling Neuro Denies abnormal gait, Reports dizziness, Denies numbness and Denies tingling Endo Denies palpitations Physical Exam Vital Signs: Last Vital Signs Pulse 69 01/20/23 11:05 BP 140/70 H 01/20/23 11:05 BMI result Body Mass Index 28.6 Const General: comfortable and no acute distress Orientation/consciousness: patient oriented x3 HEENT Other: Unremarkable Head: Yes normal to inspection Neck Neck: Yes normal visual inspection Chest Chest palpation & inspection: normal inspection of the chest Resp Auscultation: clear to auscultation bilaterally Cardio Palpation: normal PMI Heart sounds: S1 normal heart sound present, S2 normal heart sound present, no gallops, Murmur heart sound present systolic III/ and no rubs GI Palpation (GI): Soft to palpation Back/Spine/Pelvis Other: unremarkable Skin General skin exam: no rashes or lesions noted Neuro General: patient oriented x3 Extrem General: Yes normal to inspection Psych Mental Status: mental status grossly normal Office Procedures EKG Details: EKG with sinus rhythm at 69/Min; HI prolongation 246 millisecond; right bundle-branch block pattern. [id number], Complete Assessment & Plan Assessment & Plan (1) Non-rheumatic aortic stenosis: Code(s): I35.0 - Nonrheumatic aortic (valve) stenosis Plan: In the recent echocardiogram, mean gradient across aortic valve 26 mm Hg with a calculated value of 1.5 sq cm. Overall, wdkc-[id number] aortic stenosis. There is mild aortic regurgitation as well. Not hemodynamically significant this time. Will need to be followed. (2) Precordial chest pain: Code(s): R07.2 - Precordial pain Plan: Variable description. Not clear cut anginal sounding, but at his age and with comorbidities can assess for ischemia with pharmacological stress test. He does not appear to have a good balance and hence will not be able to exercise on the treadmill. (3) RBBB: Code(s): I45.10 - Unspecified right bundle-branch block Plan: Evidence of right bundle-branch block as well as prolonged HI interval on EKG. Suggestive of conduction system disease. Will need to be followed for any progressive heart blocks. Orders: Orders CA lexiscan stress w maría Today R07.2 - Precordial pain NM cardiolite stress test Today R07.2 - Precordial pain Coding Level of Care Code New Pt Level 4 (57274) Diagnoses Non-rheumatic aortic stenosis I35.0 Precordial chest pain R07.2 RBBB I45.10 CPT Codes EKG - CPT: 17913-[id number], Complete ([id number])
== END 2023-01-20 11:30 | disposition home or self-care (01) ==
PROVIDERS: PCP Internal Medicine Geriatric Medicine; Referring Provider Internal Medicine Geriatric Medicine; Visit Provider Internal Medicine
DX: I35.0 Nonrheumatic aortic (valve) stenosis (principal); R07.2 Precordial pain; I45.10 Unspecified right bundle-branch block
CPT/HCPCS: 93010; 99204

== ENCOUNTER → 2023-01-20 10:59 | Outpatient (BNVA) | payer OTHER, SELFPAY | PROVIDERS: PCP Internal Medicine Geriatric Medicine; Referring Provider Internal Medicine Geriatric Medicine; Visit Provider Internal Medicine | DX: I35.0 Nonrheumatic aortic (valve) stenosis (principal); I45.10 Unspecified right bundle-branch block; R07.2 Precordial pain | CPT/HCPCS: 93005; 99202 ==

== ENCOUNTER 2023-02-02 16:29 | Emergency (ER) | payer OTHER, SELFPAY ==
--- NOTE | ~2023-02-02 | CT_ITS ---
EXAMINATION: CT ANGIOGRAM HEAD CT ANGIOGRAM NECK CLINICAL INFORMATION: Right-sided deficits. COMPARISON: CT head from 02/02/2023. TECHNIQUE: Initial noncontrast long chain quiller tender imaging of the head and neck was performed. Comparison is made with noncontrast head CT from earlier today. Test bolus sequences followed by intravenous administration 70 mL of Omnipaque 350. Helical imaging was performed in the axial plane from the aortic arch to the skull vertex. Delayed postcontrast imaging of the head was also performed. The data was processed at the interventional radiology technologist's workstation for generation of MIP sequences. Angled MIPs and volume rendered reformatted images were also generated at an offline 3D workstation. Stenoses are assessed in accordance with NASCET criteria unless otherwise indicated. This CT examination was performed using dose optimization techniques as appropriate, variously including the following: *Automated exposure control. *Adjustment of mA and/or kV according to patient size (this includes techniques or standardized protocols for targeted exams where dose is matched to indication/reason for exam; i.e. extremities or head). *Use of iterative reconstruction technique. DLP: 1581 mGy-cm FINDINGS: CT Head: There is no evidence of acute intracranial hemorrhage or edematous territorial infarction. Contreras-white matter differentiation is preserved. A few foci of hypoattenuation in the periventricular and deep white matter are consistent with mild microangiopathy. Proportional prominence of the ventricles and sulcal spaces without evidence of obstructive hydrocephalus. No abnormal mass effect or midline shift. No extra-axial fluid collections. No pathologic intra-axial enhancement or regional oligemia. No acute soft tissue or osseous abnormalities. Moderate mucosal thickening of the right maxillary sinus. Mild mucosal thickening of the remaining paranasal sinuses. The mastoid air cells and middle ear cavities are clear. Multifocal odontogenic enamel erosions and periapical lucencies. CT Neck: There is a 1.2 cm hypoattenuating nodule in the left thyroid lobe (no follow-up imaging recommended based on current guidelines at the time of examination). The remaining cervical soft tissues are within normal limits. Advanced degenerative disc disease at C5-C6. Moderate degenerative disc disease at all additional cervical levels. Disc-osteophyte complex formation appears to cause at least moderate spinal canal stenoses at C3-C4 and C5-C6. Facet and uncovertebral joint arthropathy leads to osseous encroachment on the neural foramina from C2-T1. CT Upper Chest: The visualized lung apices and upper mediastinum are within normal limits. Neck CTA: Aortic Arch: Normal contour and caliber with mild calcific atherosclerotic disease. Classic 3 vessel branching pattern of the aortic arch. Great Vessel Origins: No significant stenosis of the branch origins. Right Common Carotid Artery: No focal stenosis or occlusion. Cervical Right Internal Carotid Artery: Mild calcific atherosclerotic disease of the carotid bulb and proximal internal carotid artery without flow-limiting stenosis. Left Common Carotid Artery: No focal stenosis or occlusion. Cervical Left Internal Carotid Artery: Normal opacification without focal stenosis or occlusion. Cervical Right Vertebral Artery: Dominant. No focal stenosis or occlusion. Cervical Left Vertebral Artery: No focal stenosis or occlusion. Brain CTA: Intracranial Internal Carotid Arteries: Calcific atherosclerotic disease of the intracranial internal carotid arteries without occlusion or flow-limiting stenosis. Right Anterior Cerebral Artery: Normal A1 segment. Normal opacification of the distal KARIN segments. Left Anterior Cerebral Artery: Normal A1 segment. Normal opacification of the distal KARIN segments. Anterior Communicating Artery: Normal. Right Middle Cerebral Artery: Normal M1 segment of the MCA without focal stenosis or occlusion. Normal arborization of the distal segments. Left Middle Cerebral Artery: Normal M1 segment of the MCA without focal stenosis or occlusion. Normal arborization of the distal segments. Right Vertebral Artery: Normal V4 segment. Normal opacification of the proximal segments of the posterior inferior cerebellar artery. Left Vertebral Artery: The V4 segment largely terminates as the posterior inferior cerebellar artery. Normal opacification of the proximal segments of the PICA. Basilar Artery: Normal without focal stenosis or occlusion. Normal appearance of the proximal superior cerebellar arteries. Right Posterior Cerebral Artery: Normal P1 segment. Normal opacification of the distal ANIMAL SHELTER CLERK segments. Left Posterior Cerebral Artery: The P1 segment is diminutive. origin of the ANIMAL SHELTER CLERK with robust opacification of the posterior communicating artery. Normal opacification of the distal ANIMAL SHELTER CLERK segments. Normal opacification of the superior sagittal, straight, transverse, and sigmoid sinuses. CT/CT angio head neck stroke IMPRESSION: 1. No evidence of acute intracranial hemorrhage or edematous territorial infarction. Mild underlying microangiopathy and generalized cerebral volume loss. 2. CTA of the head and neck without proximal occlusion or flow-limiting stenosis. 3. Moderate multilevel degenerative spondyloarthropathy of the cervical spine. Most notably, there appears to be at least moderate spinal canal stenoses at C3-C4 and C5-C6. This critical result was discussed with Dr. Villanueva at 17:27 on 02/02/2023 and it was ascertained that the content and urgency of the report was understood at the time of direct communication.
--- NOTE | ~2023-02-02 | CT_ITS ---
EXAMINATION: CT HEAD WITHOUT CONTRAST (STROKE PROTOCOL) CLINICAL INFORMATION: Stroke protocol. Aphasia COMPARISON: Previous head CT November 2021 TECHNIQUE: Contiguous axial imaging was performed from the skull base to vertex without intravenous administration of contrast. This CT examination was performed using dose optimization techniques as appropriate, variously including the following: *Automated exposure control *Adjustment of mA and/or kV according to patient size (this includes techniques or standardized protocols for targeted exams where dose is matched to indication/reason for exam; i.e. extremities or head) *Use of iterative reconstruction technique DLP: 74 mGy-cm FINDINGS: There is no evidence of an extra-axial collection. There is no evidence for intra-axial extra-axial hemorrhage. The ventricles and extra-axial CSF spaces are prominent suggestive of mild generalized atrophy. There is nonspecific periventricular white matter disease. No mass, mass effect or infarct. No skull fracture. Right maxillary sinus disease. Poor dentition. Degenerative changes at the C1 dens articulation. CT/CT head for stroke IMPRESSION: No acute intracranial pathology. This critical result was discussed with Dr. Lovelace at 1647 hours on 02/02/2023. It was ascertained that the content and urgency of the report was understood at the time of direct communication.
--- NOTE | 2023-02-02 16:30 | ECG_ITS ---
Test Reason : stroke Blood Pressure : / mmHG Vent. Rate : 067 BPM Atrial Rate : 067 BPM P-R Int : 298 ms QRS Dur : 136 ms QT Int : 450 ms P-R-T Axes : 053 007 045 degrees QTc Int : 475 ms Sinus rhythm with 1st degree A-V block Right bundle branch block Abnormal ECG No previous ECGs available Referred By: Anny Villanueva Electronically Signed By:RACHEL ARIAS
--- NOTE | 2023-02-02 16:32 | ED_ITS ---
HPI - Neuro Symptoms/Deficit General Chief Complaint: Stroke Stated Complaint: ?STROKE? Time Seen by Provider: 02/02/23 16:30 Source: family and EMS Mode of arrival: EMS History of Present Illness HPI Narrative: 77-year-old male who was watching TV, last known well 1 hour ago, then became unresponsive and had right-sided deficits. On arrival, patient is unable to provide any history, does not follow commands, is on oxygen and will proceed with stroke protocol. Related Data Home Medications Medication Instructions Recorded Confirmed atorvastatin 10 mg tablet 10 mg PO DAILY 06/29/22 01/20/23 tamsulosin 0.4 mg capsule 0.8 mg PO QPM 06/29/22 01/20/23 sitagliptin phosphate 50 1 tab PO QPM 08/17/22 01/20/23 mg-metformin 1,000 mg tablet (Janumet) Allergies Allergy/AdvReac Type Severity Reaction Status Date / Time No Known Allergies Allergy Verified 01/20/23 11:14 PMFSH Past Medical History Medical History (Updated 02/02/23 @ 19:37 by Anny Villanueva MD) RBBB Spinal stenosis Elevated cholesterol Lyme disease Gordon's palsy Phimosis Nocturia BPH (benign prostatic hyperplasia) Diabetes mellitus, type II Chronic back pain Surgical History No pertinent past surgical history Social History Social History Housing Other:: 2nd floor Are you a primary childcare worker to a significant other at home: No Do you presently have visiting nurse or other home services: No Alcohol intake: never Patient Tobacco Use Status: Never used Tobacco Smoked in Last 30 Days: No Use of substances other than those prescribed or required for medical reasons: No Advance Directives: No Advance Directives Information Provided: No Physical Exam 2 Vital Signs: Vital Signs: Last Vital Signs Temp 97.9 F 02/02/23 17:23 Pulse 71 02/02/23 17:23 Resp 16 02/02/23 17:23 BP 126/62 02/02/23 17:23 Pulse Ox 98 02/02/23 17:23 O2 Del Method Room Air 02/02/23 17:23 BMI result Body Mass Index 25.1 Medications Administered Discontinued Medications Generic Name Dose Route Start Last Admin Trade Name Freq PRN Reason Stop Dose Admin Iohexol 100 ml 02/02/23 16:54 02/02/23 16:55 Iohexol 350 Mg/Ml 100 Ml Infus..Btl IV 02/02/23 16:55 70 ml ONCE ONE Administration Medical Decision Making Medical Decision Making [facility] Narrative: 1637: prelim read is neg by me for ICH. Will proceed with CT angio head and neck. 1643: Speaking to via Andorran interpeter and pt had a change at 1600, not responding to voice, they called 9-1-1. She denies any alcohol or drug use and denies any anticoagulation. 1647: [facility] no acute findings on CT non-contrast. 1655: Returned from CT scan, arouseable, following commands, no facial asymmetry, no pronator drift, CN II-XII grossly intact but patient with mild amnesia and seems a little slow...suspicion for seizure. DDX: Seizures secondary to infection/anemia/electrolyte abnormalities/toxicology. 1700: Discussed the case with neurology, Dr Conley, who agrees not sounding consistent with stroke at this time after repeat neuro exam. 1720: CT angio read from [facility], negative for LVO. Does have severe spinal stenosis. On further discussion with the , she states that she found her still in the recliner, no evidence that he had made any attempt to stand up lower in clinical suspicion for any the positional changes to suggest a vasovagal response. Patient is completely at baseline at this time although he still is unable to recall the mediated events leading up to him being brought in to the emergency room. I reviewed all investigations and hematologic indices urged negative for leukocytosis or left shift, patient is not febrile there is a normocytic anemia although no reports of active bleeding and no evidence of thrombocytopenia. Coagulation studies a grossly within normal limits. Chemistry indices grossly within normal limits, no electrolyte derangements or MARLINE, high sensitivity troponin is undetectable, toxicology is negative and urinalysis does not demonstrate any UTI or hematuria. EKG is stable and does not demonstrated any new arrhythmia. Patient is currently being worked up by Cardiology as per patient and and will be slotted for a stress test. Otherwise, no clinical suspicion for vasovagal response or syncopal episode given the onset and duration. I do feel that patient suffered a seizure-like activity and will provide a referral to follow-up with neurology. He is otherwise discharged. Differential Diagnosis Differential Diagnoses: The differential diagnosis associated with the presentation includes Please see the discussion above Admission/Observation Consideration of admission/observation: Escalation of care including admission/observation considered Please see the discussion above Consult Healthcare Provider Management of the patient was discussed with: Mortgage Loan Specialist Please see the discussion above Lab Data MDM Lab Attestation statement: I reviewed the patient's lab results. Please see the discussion above 02/02/23 17:07 02/02/23 17:07 Labs: Lab Results 02/02/23 02/02/23 02/02/23 Range/Units 16:37 16:38 17:07 WBC 7.6 (4.8-10.8) X10*3/uL RBC 4.31 L (4.60-5.80) X10*6/uL Hgb 12.7 L (14.0-18.0) g/dl Hct 38.0 L (42.0-52.0) % MCV 88.2 (80.0-98.0) fL MCH 29.5 (27.0-33.0) pg MCHC 33.4 (31.0-36.0) g/dl RDW 12.7 (11.0-16.0) % Plt Count 162 D (160-400) X10*3/uL MPV 11.1 (9.4-12.4) fL Immature Gran % (Auto) 0.3 (0.0-0.4) % Neut % (Auto) 56.6 (45-73) % Lymph % (Auto) 31.7 (20-40) % Stan[place] % (Auto) 9.8 (2-11) % Eos % (Auto) 1.3 (0-4) % Baso % (Auto) 0.3 (0-2) % Lymph # (Auto) 2.4 (1.2-4.9) X10*3/uL Stanly # (Auto) 0.8 (0.1-1.2) X10*3/uL Eos # (Auto) 0.1 (0.0-0.4) X10*3/uL Baso # (Auto) 0.0 (0.0-0.2) X10*3/uL Abs Immat Gran (auto) 0.02 (0.00-0.03) X10*3/uL Absolute Neuts (auto) 4.3 (2.0-8.3) x10*3/uL Absolute Nucleated RBC 0.000 (0.0-0.012) X10*3/uL Nucleated RBC % (auto) 0.0 (0.0-0.2) /100WBC PT 12.5 (11.1-13.3) SEC Whole Blood PT 13.6 H (11.1-13.5) sec INR 1.0 (0.9-1.1) Whole Blood INR 1.1 (0.9-1.1) APTT 30.6 (26.0-36.4) SEC Sodium 139 (135-145) mmol/L Potassium 4.3 (3.3-5.1) mmol/L Chloride 107 (96-108) mmol/L Carbon Dioxide 24 (22-29) mmol/L Anion Gap 12 (12-20) BUN 13 (9-16) mg/dL Creatinine 1.01 (0.5-1.4) mg/dL Estim Creat Clear Calc 64.2 Estimated GFR > 60 POC Glucose 117 H (60-115) mg/dL Random Glucose 131 H (60-115) mg/dL Calcium 9.2 D (8.4-10.2) mg/dL Total Creatine Kinase 155 (38-174) U/L Troponin I High Sens < 2.7 (<3.5-35.0) ng/L Urine Color Urine Appearance Urine pH (5.0-9.0) Ur Specific [place] (1.005-1.025) Urine Protein (Neg-Trace) mg/dL Urine Glucose (UA) (Negative) mg/dL Urine Ketones (Negative) mg/dL Urine Blood (Negative) Urine Nitrite (Negative) Ur Leukocyte Esterase (Negative) Urine Opiates Screen (Not Detect) Urine Fentanyl Screen (Not Detect) Ur Barbiturates Screen (Not Detect) Ur Phencyclidine Scrn (Not Detect) Ur Amphetamines Screen (Not Detect) U Benzodiazepines Scrn (Not Detect) Urine Cocaine Screen (Not Detect) U Marijuana (THC) Screen (Not Detect) Ethyl Alcohol < 10 mg/dL 02/02/23 Range/Units 19:05 WBC (4.8-10.8) X10*3/uL RBC (4.60-5.80) X10*6/uL Hgb (14.0-18.0) g/dl Hct (42.0-52.0) % MCV (80.0-98.0) fL MCH (27.0-33.0) pg MCHC (31.0-36.0) g/dl RDW (11.0-16.0) % Plt Count (160-400) X10*3/uL MPV (9.4-12.4) fL Immature Gran % (Auto) (0.0-0.4) % Neut % (Auto) (45-73) % Lymph % (Auto) (20-40) % Stanly % (Auto) (2-11) % Eos % (Auto) (0-4) % Baso % (Auto) (0-2) % Lymph # (Auto) (1.2-4.9) X10*3/uL Stanly # (Auto) (0.1-1.2) X10*3/uL Eos # (Auto) (0.0-0.4) X10*3/uL Baso # (Auto) (0.0-0.2) X10*3/uL Abs Immat Gran (auto) (0.00-0.03) X10*3/uL Absolute Neuts (auto) (2.0-8.3) x10*3/uL Absolute Nucleated RBC (0.0-0.012) X10*3/uL Nucleated RBC % (auto) (0.0-0.2) /100WBC PT (11.1-13.3) SEC Whole Blood PT (11.1-13.5) sec INR (0.9-1.1) Whole Blood INR (0.9-1.1) APTT (26.0-36.4) SEC Sodium (135-145) mmol/L Potassium (3.3-5.1) mmol/L Chloride (96-108) mmol/L Carbon Dioxide (22-29) mmol/L Anion Gap (12-20) BUN (9-16) mg/dL Creatinine (0.5-1.4) mg/dL Estim Creat Clear Calc Estimated GFR POC Glucose (60-115) mg/dL Random Glucose (60-115) mg/dL Calcium (8.4-10.2) mg/dL Total Creatine Kinase (38-174) U/L Troponin I High Sens (<3.5-35.0) ng/L Urine Color Yellow Urine Appearance Clear Urine pH 6.0 (5.0-9.0) Ur Specific [place] >= 1.030 H (1.005-1.025) Urine Protein Negative (Neg-Trace) mg/dL Urine Glucose (UA) Negative (Negative) mg/dL Urine Ketones Negative (Negative) mg/dL Urine Blood Negative (Negative) Urine Nitrite Negative (Negative) Ur Leukocyte Esterase Trace H (Negative) Urine Opiates Screen Not Detected (Not Detect) Urine Fentanyl Screen Not Detected (Not Detect) Ur Barbiturates Screen Not Detected (Not Detect) Ur Phencyclidine Scrn Not Detected (Not Detect) Ur Amphetamines Screen Not Detected (Not Detect) U Benzodiazepines Scrn Not Detected (Not Detect) Urine Cocaine Screen Not Detected (Not Detect) U Marijuana (THC) Screen Not Detected (Not Detect) Ethyl Alcohol mg/dL Independent Interpretation I performed an independent interpretation of an: EKG Interpretation: Sinus rhythm with first-degree AV block at baseline, no STEMI, RBBB at baseline, MO-298, QRS -136, QTC within normal limits. Comparison EKG from 01/20/2023 Radiology Impression Discussion of test interpretation with radiology: I have reviewed the radiologist's reading. Radiologist Impression: Please see the discussion above Independent Historian Clinical information obtained from an independent historian. History obtained from or confirmed by: Spouse External Record Review External record reviewed: Outpatient record, Prior outpatient labs and Prior outpatient radiology NIH Stroke Scale Internal: Initial- Upon Arrival Level of Consciousness: Not Alert; but arousable by minor stimulation Level of Consciousness Questions: Answers neither question correctly Level of Consciousness Commands: Performs neither task correctly Best Gaze: Partial gaze palsy Visual: No visual loss Facial Palsy: Normal Motor Arm (Right): No effort against gravity Motor Arm (Left): No effort against gravity Motor Leg (Right): No effort against gravity Motor Leg (Left): No effort against gravity Limb Ataxia: Absent Sensory: Severe to total sensory loss (Unable to assess) Best Language: Severe aphasia (Unable to assess) Dysarthia: Severe dysarthria (Unable to assess) Extinction and Inattention: Profound chris-inattention or extinction to more than one modality (Unable to assess) Score: 26 Critical Care Time Critical Care Time Critical Care Time: Yes Total Critical Care Time: 45 Attestation: I personally attest to this time spent taking care of the patient. Discharge Plan Discharge Clinical Impression: Seizure Patient Disposition: Home, Self-Care Instructions: New-Onset Seizure in Adults (ED) Additional Instructions: 1. Reanudar todos los medicamentos caseros seg?n lo recetado. 2. Jackelyn un seguimiento con drew proveedor de atenci?n primaria llamando al consultorio a primera hora de la ma?willis y programando awilda valentin para awilda reevaluaci?n y discusi?n sobre awilda derivaci?n de Neurolog?a. Regrese a la roxanna de emergencias si los s?ntomas empeoran. 1. Resume all home medications as prescribed. 2. Follow-up with your primary care provider by calling the office 1st thing in the morning and setting up an appointment for re-evaluation and discussion regarding with a referral by Neurology. Return to the ER for any worsening symptoms. Prescriptions: No Action Janumet 50-1,000 mg tablet 1 tab PO QPM atorvastatin 10 mg tablet 10 mg PO DAILY tamsulosin 0.4 mg capsule 0.8 mg PO QPM Referrals: Kirby Conley MD [Physician] - Print Language: Andorran
[2023-02-02 16:35] VITALS: BP 146/84; PULSE 98; O2SAT 100
[2023-02-02 16:42] LABS: Glucose, Whole Blood 117 mg/dL (60-115)
[2023-02-02 16:46] LABS: Prothrombin Time Whole Bld POC 13.6 sec (11.1-13.5); ~PT, ~INR - Anti Coag Clinic 1.1 (0.9-1.1)
[2023-02-02] MEDS: iohexoL 350 MG/ML 100 ML INFUS..BTL IV (16:55)
[2023-02-02 16:59] VITALS: BMI 25.1
[2023-02-02 17:11] LABS: MANUAL DIFF FLAG NO
[2023-02-02 17:13] LABS: Basophils Percent Auto 0.3 % (0-2); Eosinophils Absolute Auto 0.1 X10*3/uL (0.0-0.4); Eosinophils Percent Auto 1.3 % (0-4); Hemoglobin 12.7 g/dl (14.0-18.0); Imm Gran Abs Auto 0.02 X10*3/uL (0.00-0.03); Imm Gran Pct Auto 0.3 % (0.0-0.4); Lymphocytes Absolute Auto 2.4 X10*3/uL (1.2-4.9); Lymphocytes Percent Auto 31.7 % (20-40); Mean Corpuscular HGB Conc 33.4 g/dl (31.0-36.0); Mean Corpuscular Hemoglobin 29.5 pg (27.0-33.0); Mean Corpuscular Volume 88.2 fL (80.0-98.0); Mean Platelet Volume 11.1 fL (9.4-12.4); Monocytes Absolute Auto 0.8 X10*3/uL (0.1-1.2); Monocytes Percent Auto 9.8 % (2-11); Neutrophils Absolute Auto 4.3 x10*3/uL (2.0-8.3); Neutrophils Percent Auto 56.6 % (45-73); Platelet Count 162 X10*3/uL (160-400); Red Blood Count 4.31 X10*6/uL (4.60-5.80); Red Cell Distribution Width 12.7 % (11.0-16.0); White Blood Count 7.6 X10*3/uL (4.8-10.8)
[2023-02-02 17:19] LABS: Prothrombin Time 12.5 SEC (11.1-13.3)
[2023-02-02 17:21] LABS: Partial Thromboplastin Time 30.6 SEC (26.0-36.4)
[2023-02-02 17:23] VITALS: BP 126/62; PULSE 71; RESP 16; TEMP 36.6; O2SAT 98
[2023-02-02 17:26] LABS: Ethanol < 10 mg/dL
[2023-02-02 17:27] LABS: Anion Gap 12 (12-20); Blood Urea Nitrogen 13 mg/dL (9-16); Calcium 9.2 mg/dL (8.4-10.2); Carbon Dioxide 24 mmol/L (22-29); Chloride 107 mmol/L (96-108); Creatinine Clr Calc Pharmacy 64.2; Estimated Glomerular Filt Rate > 60; Glucose Random 131 mg/dL (60-115); Potassium 4.3 mmol/L (3.3-5.1); Sodium 139 mmol/L (135-145)
[2023-02-02 17:38] LABS: Troponin-I High Sensitivity < 2.7 ng/L (<3.5-35.0)
[2023-02-02 18:00] LABS: Stroke Lab Use COMPLETE
[2023-02-02 19:21] LABS: Amphetamine Screen Urine Not Detected (Not Detect); Barbiturates, Urine Not Detected (Not Detect); Benzodiazepines Screen Urine Not Detected (Not Detect); Cannabinoid Screen Urine Not Detected (Not Detect); Cocaine Screen Urine Not Detected (Not Detect); Fentanyl, urine Not Detected (Not Detect); Opiate Screen Urine Not Detected (Not Detect); Phencyclidine Screen Urine Not Detected (Not Detect)
[2023-02-02 19:22] LABS: Appearance Urine Clear; Color Urine Yellow; Glucose Urine UA Negative (Negative); Leukocyte Esterase Urine Trace (Negative); Nitrite Urine Negative (Negative); Specific Gravity - Urine >= 1.030 (1.005-1.025); UMIC TRIGGER UACC YES; Urine Blood Negative (Negative); Urine Ketones Negative (Negative); Urine Protein Negative (Neg-Trace)
[2023-02-02 19:27] LABS: Bacteria Urine None Seen (None Seen); Hyaline Casts Urine 0-2 /LPF (0-2); RBC Urine 0-2 /HPF (0-2); Squamous Epithelial Cell Urine 0-2 /HPF (0-2); UACC Culture Trigger YES
[2023-02-02 19:56] VITALS: BP 137/69; PULSE 82; RESP 17; O2SAT 97
--- NOTE | 2023-02-02 19:57 | PC.NURSE ---
patient ambulated with steady gait to and from bathroom in no apparent distress. plastic card grader cardroom used for discharge .
== END 2023-02-02 19:58 | disposition home or self-care (01) ==
PROVIDERS: Emergency Provider Student in an Organized Health Care Education/Training Program
DX: R56.9 Unspecified convulsions (principal); R29.726 NIHSS score 26; R47.01 Aphasia; I45.10 Unspecified right bundle-branch block; Z79.899 Other long term (current) drug therapy
CPT/HCPCS: 36415; 70450; 70496; 70498; 80048; 80307; 81001; 82550; 82947; 84484; 85025; 85610; 85730; 87086; 87088; 87186; 93005; 99285; Q9967

== ENCOUNTER 2023-03-10 10:30 | Outpatient (REF) | payer OTHER, SELFPAY ==
--- NOTE | ~2023-03-10 | XR_ITS ---
EXAMINATION: XR SHOULDER, RIGHT CLINICAL INFORMATION: Right shoulder pain. COMPARISON: None available. TECHNIQUE: AP external rotation, Grashey, scapular Y, and axillary views of the right shoulder. FINDINGS: There is mild loss of right AC joint and glenohumeral joint space. No visible acute fracture, dislocation or subluxation seen. There is soft tissue calcification along the greater tuberosity likely calcific tendinitis. No visible acute fracture or dislocation seen. XR/XR shoulder RT min 2V IMPRESSION: 1. Mild degenerative changes right AC joint and glenohumeral joint. No visible acute fracture or dislocation seen. 2. Soft tissue calcification along the greater tuberosity likely calcific tendinitis.
== END 2023-03-10 10:31 | disposition home or self-care (01) ==
LOC: HO.HHCX 10:30
PROVIDERS: Visit Provider Internal Medicine Geriatric Medicine
DX: M25.511 Pain in right shoulder (principal)
CPT/HCPCS: 73030

== ENCOUNTER 2023-03-30 09:10 | Outpatient (REF) | payer OTHER, SELFPAY ==
[2023-03-31 22:32] LABS: Lyme Abs Screen <0.90 index
== END 2023-03-30 09:11 | disposition home or self-care (01) ==
LOC: HO.LAB 09:10
PROVIDERS: Visit Provider Psychiatry & Neurology Neurology
DX: G40.909 Epilepsy, unspecified, not intractable, without status epilepticus (principal)
CPT/HCPCS: 36415; 86617; 86618

== ENCOUNTER 2023-05-21 08:18 | Inpatient (IN) | payer OTHER, SELFPAY ==
[2023-05-21] VITALS (8 sets, daily range): BP systolic 101–134; BP diastolic 47–82; PULSE 70–138; RESP 16–22; TEMP 36.7–39.4; O2SAT 93–96; BMI 29.3
--- NOTE | 2023-05-21 | ECG_ITS ---
Test Reason : ELEVATED TROP Blood Pressure : / mmHG Vent. Rate : 064 BPM Atrial Rate : 064 BPM P-R Int : 182 ms QRS Dur : 132 ms QT Int : 416 ms P-R-T Axes : 092 000 062 degrees QTc Int : 429 ms Sinus rhythm with marked sinus arrhythmia with Premature supraventricular complexes Right bundle branch block Abnormal ECG When compared with ECG of 21-MAY-2023 09:25, Vent. rate has decreased BY 36 BPM Referred By: Lucia Leyva Electronically Signed By:HARMAN HAMMOND
--- NOTE | ~2023-05-21 | XR_ITS ---
EXAMINATION: XR ANKLE, RIGHT CLINICAL INFORMATION: Ankle pain and swelling COMPARISON: None available. TECHNIQUE: AP, lateral, and mortise views of the right ankle. FINDINGS: Degenerative changes are present at the ankle with osteophytes at the tibia/fibular joint, arising from the anterior tibia and medial malleolus. No soft tissue swelling fractures or subluxations are seen. Large calcified ossific densities are seen in the plantar fascia and to a lesser extent the distal Achilles tendon. The largest calcific density measures 3.5 x 1.3 cm. XR/XR ankle RT 2V IMPRESSION: Degenerative changes at the ankle with large calcified ossific densities in the plantar fascia and Achilles tendon.
--- NOTE | ~2023-05-21 | XR_ITS ---
EXAMINATION: XR CHEST CLINICAL INFORMATION: Cough, fevers, Covid 19, evaluate for pneumonia. COMPARISON: Chest radiograph dated 05/21/2023. TECHNIQUE: Frontal view of the chest was obtained. FINDINGS: The lungs are clear. The cardiomediastinal silhouette is normal in size. There is no pleural effusion or pneumothorax. No acute osseous abnormality. XR/XR chest 1V IMPRESSION: No acute cardiopulmonary findings.
--- NOTE | ~2023-05-21 | XR_ITS ---
EXAMINATION: XR CHEST CLINICAL INFORMATION: Weakness. COMPARISON: Chest radiographs dated 05/01/2022. TECHNIQUE: Frontal view of the chest was obtained. FINDINGS: No significant abnormality is noted involving the heart, lungs, mediastinum, bony thorax or soft tissues. XR/XR chest 1V IMPRESSION: Unremarkable examination.
--- NOTE | 2023-05-21 08:30 | ECG_ITS ---
Test Reason : TACHYCARDIA Blood Pressure : / mmHG Vent. Rate : 100 BPM Atrial Rate : 000 BPM P-R Int : 000 ms QRS Dur : 124 ms QT Int : 356 ms P-R-T Axes : 000 -26 063 degrees QTc Int : 459 ms Undetermined rhythm -possibly sinus with 1st degree HB, PACs. Right bundle branch block Abnormal ECG When compared with ECG of 02-FEB-2023 17:17, Vent. rate has increased BY 33 BPM Referred By: Giselle Recio Electronically Signed By:HARMAN HAMMOND
[2023-05-21 08:56] LABS: MANUAL DIFF FLAG NO
[2023-05-21 09:00] LABS: VBG Base Excess 4.2 mmol/L; VBG HCO3 29 mmol/L (22-26); VBG pCO2 45 mmHg; VBG pH 7.41 (7.32-7.43); VBG pO2 33 mmHg
[2023-05-21 09:03] LABS: Venous Blood Gas Refer to POC result
[2023-05-21] MEDS: Acetaminophen Supp 650 MG SUPP.RECT PR (09:05)
[2023-05-21] MEDS: cefTRIAXone sodium 1 GM in 0.9 % Sodium Chloride 50 ML IV (09:05)
[2023-05-21 09:07] LABS: INTERNATIONAL NORM RATIO 1.1 (0.9-1.1); Prothrombin Time 13.7 SEC (11.1-13.3)
[2023-05-21 09:10] LABS: Basophils Percent Auto 0.2 % (0-2); Hematocrit 46.1 % (42.0-52.0); Hemoglobin 15.5 g/dl (14.0-18.0); Imm Gran Abs Auto 0.03 X10*3/uL (0.00-0.03); Imm Gran Pct Auto 0.3 % (0.0-0.4); Lymphocytes Absolute Auto 1.7 X10*3/uL (1.2-4.9); Lymphocytes Percent Auto 17.5 % (20-40); Mean Corpuscular HGB Conc 33.6 g/dl (31.0-36.0); Mean Corpuscular Hemoglobin 29.8 pg (27.0-33.0); Mean Corpuscular Volume 88.7 fL (80.0-98.0); Mean Platelet Volume 10.5 fL (9.4-12.4); Monocytes Absolute Auto 1.2 X10*3/uL (0.1-1.2); Monocytes Percent Auto 12.4 % (2-11); Neutrophils Absolute Auto 6.6 x10*3/uL (2.0-8.3); Neutrophils Percent Auto 69.6 % (45-73); Platelet Count 168 X10*3/uL (160-400); Red Cell Distribution Width 13.4 % (11.0-16.0); White Blood Count 9.5 X10*3/uL (4.8-10.8)
[2023-05-21 09:17] LABS: Lactic Acid 1.9 mmol/L (0.5-2.0)
--- NOTE | 2023-05-21 09:19 | ED_ITS ---
HPI - Fever General Chief Complaint: Altered Mental Status Stated Complaint: +COVID,?NEW UTI,HARD TO AROUSE BY FAMILY PER EMS Time Seen by Provider: 05/21/23 08:20 Source: patient, old records reviewed and lead ios developer Mode of arrival: EMS Limitations: altered mental status History of Present Illness HPI Narrative: 78 yo male from home PMH of DM, RBBB, lyme disease, HLD, vaccinated for COVID x 3 tested positive from home 2 days ago this AM family called as he was hard to wake up and not himself. He is covered in feces, febrile and has dark foul smelling urine has hx of proteus infection. He has no complaints other than not feeling well, tired, has no CP/SOB. Notes he thinks his blood sugar was high but cannot tell me how high. MD elicited complaint: fever, malaise and weakness Pertinent past history: diabetes Onset (ago): day(s) (2) Context: other (+ home COVID test 2 days ago) Exacerbating factors: exertion Relieving factors: nothing Associated symptoms: chills, myalgias, nausea and diarrhea Treatments prior to arrival fever: none Related Data Home Medications Medication Instructions Recorded Confirmed atorvastatin 10 mg tablet 10 mg PO DAILY 06/29/22 01/20/23 tamsulosin 0.4 mg capsule 0.8 mg PO QPM 06/29/22 01/20/23 sitagliptin phosphate 50 1 tab PO QPM 08/17/22 01/20/23 mg-metformin 1,000 mg tablet (Janumet) Allergies Allergy/AdvReac Type Severity Reaction Status Date / Time No Known Allergies Allergy Verified 05/21/23 08:30 Review of Systems 2 Review of Systems: Constitutional : No Weight loss, No Fever, pos Chills, pos fatigue ENT/Mouth : No sore throat, No Rhinorrhea Eyes: No Swelling, No Redness Cardiovascular : No Chest Pain, No SOB, NoEdema Respiratory : No Cough, No Sputum, No Wheezing Gastrointestinal : Positive Nausea, no Vomiting, positive Diarrhea, no abdominal Pain, No Hematochezia, No Melena Genitourinary : No Dysuria, No Urinary Frequency, No Hematuria, No Urgency Musculoskeletal : No joint pain, No Myalgias, No Joint Swelling Skin : No Skin Lesions, No rash Neuro : pos Weakness, No Numbness, No Dizziness, No Headache Psych : No Anxiety/Panic, No Depression All other systems reviewed and are negative. [facility] Past Medical History Attestation statement: The following information was validated with the patient. Source: old records reviewed Medical History RBBB Spinal stenosis Elevated cholesterol Lyme disease Gordon's palsy Phimosis Nocturia BPH (benign prostatic hyperplasia) Diabetes mellitus, type II Chronic back pain Surgical History No pertinent past surgical history Social History Social History Housing Other:: 2nd floor Are you a primary ostomy care nurse to a significant other at home: No Do you presently have visiting nurse or other home services: No Unable to assess alcohol history related to: Unknown Alcohol intake: never Patient Tobacco Use Status: Never used Tobacco Smoked in Last 30 Days: No Use of substances other than those prescribed or required for medical reasons: No Advance Directives: No Physical Exam 2 Vital Signs: Vital Signs: Last Vital Signs Temp 100.2 F 05/21/23 10:41 Pulse 84 05/21/23 10:41 Resp 16 05/21/23 10:41 BP 108/59 L 05/21/23 10:41 Pulse Ox 93 05/21/23 10:41 O2 Del Method Room Air 05/21/23 10:41 BMI result Body Mass Index 29.3 Appearance: Alert. Oriented X2 but slow to respond and needed repeat asking. No acute distress. Eyes: Pupils equal, round and reactive to light. ENT: Pharynx dry MM Neck: Normal inspection. Neck supple. CVS: tachycardic heart rate and rhythm. Pulses normal. Respiratory: No respiratory distress. Breath sounds diminished in bases. Abdomen: Soft and nontender. covered in brown feces on legs and rectum Skin: Skin warm and dry. Normal skin color. Normal skin turgor. Extremities: No lower extremity edema. Neuro: Oriented X 2 (confused on time). No motor deficit. No sensory deficit. Medications Administered Discontinued Medications Generic Name Dose Route Start Last Admin Trade Name Freq PRN Reason Stop Dose Admin Acetaminophen 650 mg 05/21/23 08:30 05/21/23 09:05 Acetaminophen Supp 650 Mg Supp.Rect HI 05/21/23 08:31 650 mg ONCE ONE Administration Sodium Chloride 2,625 mls @ 2,625 mls/hr 05/21/23 08:30 05/21/23 08:53 Ns 30 ml/kg infuse over 1 hr (2625 ml) 05/21/23 09:29 2,625 mls/hr IV Administration .Q1H STA Ceftriaxone Sodium 1 gm/ 50 mls @ 100 mls/hr 05/21/23 08:30 05/21/23 09:35 Sodium Chloride IV 05/21/23 08:59 Infused ONCE ONE Infusion Medical Decision Making Medical Decision Making MDM Narrative: 78 yo male from home PMH of DM, RBBB, lyme disease, HLD, vaccinated for COVID x 3 here with c/o fatigue, malaise, hard time waking up this AM in setting of temp of 102. He has hx of proteus UTI at this time will obtain labs, CXR, EKG, hydrate, give fluids he is not altered but is slow to respond suspect encephalopathy from the fever - will start on tylenol and ceftriaxone given hx of proteus. Possible admit if he does not improve. Differential Diagnosis Differential Diagnoses: The differential diagnosis associated with the presentation includes covid 19, viral syndrome, dehydration, UTI, pneumonia Admission/Observation Consideration of admission/observation: Escalation of care including admission/observation considered will need admission very weak not eating, sig diarrhea Consult Healthcare Provider Management of the patient was discussed with: Hospitalist (will admit) and Telephone Information Clerk (discussed EKG - hard to say if afib vs wenkebach can monitor on tele and repeat) Lab Data [facility] Lab Attestation statement: I reviewed the patient's lab results. 05/21/23 08:50 05/21/23 08:50 Labs: Lab Results 05/21/23 05/21/23 05/21/23 Range/Units 08:50 08:55 09:02 WBC 9.5 (4.8-10.8) X10*3/uL RBC 5.20 D (4.60-5.80) X10*6/uL Hgb 15.5 D (14.0-18.0) g/dl Hct 46.1 D (42.0-52.0) % MCV 88.7 (80.0-98.0) fL MCH 29.8 (27.0-33.0) pg MCHC 33.6 (31.0-36.0) g/dl RDW 13.4 (11.0-16.0) % Plt Count 168 (160-400) X10*3/uL MPV 10.5 (9.4-12.4) fL Immature Gran % (Auto) 0.3 (0.0-0.4) % Neut % (Auto) 69.6 (45-73) % Lymph % (Auto) 17.5 L (20-40) % [place] % (Auto) 12.4 H (2-11) % Eos % (Auto) 0.0 (0-4) % Baso % (Auto) 0.2 (0-2) % Lymph # (Auto) 1.7 (1.2-4.9) X10*3/uL [place] # (Auto) 1.2 (0.1-1.2) X10*3/uL Eos # (Auto) 0.0 (0.0-0.4) X10*3/uL Baso # (Auto) 0.0 (0.0-0.2) X10*3/uL Abs Immat Gran (auto) 0.03 (0.00-0.03) X10*3/uL Absolute Neuts (auto) 6.6 (2.0-8.3) x10*3/uL Absolute Nucleated RBC 0.000 (0.0-0.012) X10*3/uL Nucleated RBC % (auto) 0.0 (0.0-0.2) /100WBC PT 13.7 H (11.1-13.3) SEC INR 1.1 (0.9-1.1) VBG pH 7.41 (7.32-7.43) VBG pCO2 45 mmHg VBG pO2 33 mmHg VBG HCO3 29 H (22-26) mmol/L VBG O2 Saturation 44.0 % VBG Base Excess 4.2 mmol/L Sodium 138 (135-145) mmol/L Potassium 4.0 (3.3-5.1) mmol/L Chloride 101 (96-108) mmol/L Carbon Dioxide 27 (22-29) mmol/L Anion Gap 14 (12-20) BUN 16 (9-16) mg/dL Creatinine 1.20 (0.5-1.4) mg/dL Estim Creat Clear Calc 55.4 Estimated GFR 59 POC Glucose (60-115) mg/dL Random Glucose 112 (60-115) mg/dL Lactic Acid 1.9 (0.5-2.0) mmol/L Calcium 9.4 (8.4-10.2) mg/dL Magnesium 1.9 (1.6-2.6) mg/dL Total Bilirubin 0.7 (0.0-1.0) mg/dL Direct Bilirubin 0.3 (0.0-0.5) mg/dL AST 29 (5-37) U/L ALT 28 (0-40) U/L Alkaline Phosphatase 60 (39-117) U/L Troponin I High Sens 30.9 D (<3.5-35.0) ng/L Total Protein 7.7 (6.5-8.0) g/dL Albumin 4.0 (3.5-5.0) g/dL Lipase 21 (8-78) U/L Procalcitonin 0.05 ng/mL TSH 1.05 (0.32-4.0) uIU/mL Urine Color Urine Appearance Urine pH (5.0-9.0) Ur Specific [place] (1.005-1.025) Urine Protein (Neg-Trace) mg/dL Urine Glucose (UA) (Negative) mg/dL Urine Ketones (Negative) mg/dL Urine Blood (Negative) Urine Nitrite (Negative) Ur Leukocyte Esterase (Negative) Influenza Type A (PCR) NEGATIVE (Negative) Influenza Type B (PCR) NEGATIVE (Negative) RSV RNA Qual (PCR) NEGATIVE (Negative) SARS-CoV-2 RNA (RT-PCR) POSITIVE A (Negative) 05/21/23 05/21/23 Range/Units 09:18 09:28 WBC (4.8-10.8) X10*3/uL RBC (4.60-5.80) X10*6/uL Hgb (14.0-18.0) g/dl Hct (42.0-52.0) % MCV (80.0-98.0) fL MCH (27.0-33.0) pg MCHC (31.0-36.0) g/dl RDW (11.0-16.0) % Plt Count (160-400) X10*3/uL MPV (9.4-12.4) fL Immature Gran % (Auto) (0.0-0.4) % Neut % (Auto) (45-73) % Lymph % (Auto) (20-40) % [place] % (Auto) (2-11) % Eos % (Auto) (0-4) % Baso % (Auto) (0-2) % Lymph # (Auto) (1.2-4.9) X10*3/uL [place] # (Auto) (0.1-1.2) X10*3/uL Eos # (Auto) (0.0-0.4) X10*3/uL Baso # (Auto) (0.0-0.2) X10*3/uL Abs Immat Gran (auto) (0.00-0.03) X10*3/uL Absolute Neuts (auto) (2.0-8.3) x10*3/uL Absolute Nucleated RBC (0.0-0.012) X10*3/uL Nucleated RBC % (auto) (0.0-0.2) /100WBC PT (11.1-13.3) SEC INR (0.9-1.1) VBG pH (7.32-7.43) VBG pCO2 mmHg VBG pO2 mmHg VBG HCO3 (22-26) mmol/L VBG O2 Saturation % VBG Base Excess mmol/L Sodium (135-145) mmol/L Potassium (3.3-5.1) mmol/L Chloride (96-108) mmol/L Carbon Dioxide (22-29) mmol/L Anion Gap (12-20) BUN (9-16) mg/dL Creatinine (0.5-1.4) mg/dL Estim Creat Clear Calc Estimated GFR POC Glucose 116 H (60-115) mg/dL Random Glucose (60-115) mg/dL Lactic Acid (0.5-2.0) mmol/L Calcium (8.4-10.2) mg/dL Magnesium (1.6-2.6) mg/dL Total Bilirubin (0.0-1.0) mg/dL Direct Bilirubin (0.0-0.5) mg/dL AST (5-37) U/L ALT (0-40) U/L Alkaline Phosphatase (39-117) U/L Troponin I High Sens (<3.5-35.0) ng/L Total Protein (6.5-8.0) g/dL Albumin (3.5-5.0) g/dL Lipase (8-78) U/L Procalcitonin ng/mL TSH (0.32-4.0) uIU/mL Urine Color Yellow Urine Appearance Clear Urine pH 5.5 (5.0-9.0) Ur Specific [place] 1.020 (1.005-1.025) Urine Protein Trace (Neg-Trace) mg/dL Urine Glucose (UA) Negative (Negative) mg/dL Urine Ketones Trace (Negative) mg/dL Urine Blood Negative (Negative) Urine Nitrite Negative (Negative) Ur Leukocyte Esterase Negative (Negative) Influenza Type A (PCR) (Negative) Influenza Type B (PCR) (Negative) RSV RNA Qual (PCR) (Negative) SARS-CoV-2 RNA (RT-PCR) (Negative) Independent Interpretation I performed an independent interpretation of an: EKG and Plain X-Ray (no pneumonia) Interpretation: Rate: 100 Rhythm: afib and NSR Chase: left RBBB ST T wave : inverted t waves in V1-V2, no ALICIA, artifact noed qTC: prior studies: changed from prior The study has been interpreted contemporaneously by me. . Radiology Impression Discussion of test interpretation with radiology: I have reviewed the radiologist's reading. Independent Historian Clinical information obtained from an independent historian. History obtained from or confirmed by: EMS and Other External Record Review External record reviewed: Inpatient record Discharge Plan Discharge Clinical Impression: COVID-19, Weakness, Acute diarrhea, Abnormal ECG Patient Disposition: Admitted As Inpatient
[2023-05-21 09:27] LABS: Alanine Aminotransferase 28 U/L (0-40); Alkaline Phosphatase 60 U/L (39-117); Anion Gap 14 (12-20); Aspartate Amino Transferase 29 U/L (5-37); Bilirubin Direct 0.3 mg/dL (0.0-0.5); Bilirubin Total 0.7 mg/dL (0.0-1.0); Blood Urea Nitrogen 16 mg/dL (9-16); Calcium 9.4 mg/dL (8.4-10.2); Carbon Dioxide 27 mmol/L (22-29); Chloride 101 mmol/L (96-108); Creatinine Clr Calc Pharmacy 55.4; Estimated Glomerular Filt Rate 59; Glucose Random 112 mg/dL (60-115); Lipase 21 U/L (8-78); Magnesium 1.9 mg/dL (1.6-2.6); Sodium 138 mmol/L (135-145); Total Protein 7.7 g/dL (6.5-8.0)
[2023-05-21 09:28] LABS: Troponin-I High Sensitivity 30.9 ng/L (<3.5-35.0)
[2023-05-21 09:36] LABS: Glucose, Whole Blood 116 mg/dL (60-115)
[2023-05-21 09:39] LABS: Appearance Urine Clear; Color Urine Yellow; Glucose Urine UA Negative (Negative); Leukocyte Esterase Urine Negative (Negative); Nitrite Urine Negative (Negative); PH 5.5 (5.0-9.0); Urine Blood Negative (Negative); Urine Ketones Trace mg/dL (Negative); Urine Protein Trace mg/dL (Neg-Trace)
[2023-05-21 09:42] LABS: Procalcitonin 0.05 ng/mL; TSH reflex Free T4 1.05 uIU/mL (0.32-4.0)
[2023-05-21 09:47] LABS: Influenza A PCR NEGATIVE (Negative); Influenza B PCR NEGATIVE (Negative); Resp Syncy Virus RNA Qual PCR NEGATIVE (Negative); SARS COV2 PCR INHOUSE POSITIVE (Negative)
--- NOTE | 2023-05-21 10:00 | PC.NURSE ---
Pt came in via EMS, pt was incon of stool, Hr 140s, temp 102.9 oral, provider alerted of sepsis alert
--- NOTE | 2023-05-21 11:54 | PHA.MEDREC ---
Pharmacy Consult ? Medication Reconciliation Pharmacy has completed the medication reconciliation. Utilized milking machine technician services. Pt family member confirmed meds with Rx bottles.
[2023-05-21 13:41] LABS: Troponin-I High Sensitivity 96.4 ng/L (<3.5-35.0)
--- NOTE | 2023-05-21 15:31 | P.HPHOSP_ITS ---
<Statement entered by Thomas Garcia MD - 05/23/23 13:43> The patient was seen and evaluated with SHEREE Auguste. I agree with her note, assessment and plan with the following. In summary, A 78 year male with PMH of Lyme disease, Gordon's palsy, BPH, [id number] type 2 diabetes, chronic low back pain, seizure disorder, and right bundle-branch block with history of recurrent falls who presented for AMS and weakness. Tested positive for Covid19 infection. # metabolic encephalopathy and viral sepsis 2/2 Covid19 infection no indication for antiviral therapy or Decadron symptomatic management recurrent orientation physical therapy Isolation Rest of evaluations by PA note. History of Present Illness Date of Service: 05/21/23 Attending physician on admission: Thomas Garcia Chief Complaint: weakness, confusion 78-year-old male with history of hyperlipidemia, history of Lyme disease Gordon's palsy, BPH, [id number] type 2 diabetes, chronic low back pain, unspecified seizure disorder, and right bundle-branch block with history of recurrent falls presented to the ED earlier today with his and son with whom he lives for evaluation of significant weakness and confusion that started 2 days ago. Per his , the patient has also been complaining of sore throat, fevers this morning, cough with chest congestion but unable to expectorates. The patient typically ambulates with a walker at baseline but has been so weak he has been unable to stand of zone and has had several episodes of urinary incontinence. This morning at around 05:30, the patient was asking what was for dinner and has not been responsive intermittently. No abdominal pain, nausea, vomiting, diarrhea, dysuria, hematuria, increased urinary frequency, lightheadedness, palpitations, shortness of breath, chest pain. while in the ED, he has been noted to be incontinent of urine and stool with significant diarrhea. Both his and son are also sick with upper respiratory symptoms. On arrival, patient febrile to 102.9, tachycardic to 138, vitals otherwise stable, no Hypoxia or Hypotension. Hematology studies unremarkable. Renal function electrolyte levels normal. VBG reassuring. Initial troponin 30.9, repeat 96.4. Initial EKG questionable- normal sinus rhythm with Wenckebach vs afib per cardiology who reviewed EKG. UA unremarkable. TSH WNL . Positive for COVID-19, negative RSV influenza. Chest x-ray negative for any acute cardiopulmonary abnormality. in the ED, patient has received 2600 mL IVF, 1 g Rocephin. Review of Systems 2 Review of Systems: General: No unintentional weight loss. +general weakness, +fevers, +malaise HEENT: +sore throat. No nasal congestion, rhinorrhea, sinus pain, ear pain Cardiovascular: No chest pain, palpitations, or leg edema Respiratory: +cough, +chest congestion. No shortness of breath, wheezing GI: +diarrhea. No abdominal pain, nausea, vomiting, constipation, melena, hematochezia : +urinary incontinence. No dysuria, hematuria, increased urinary frequency, decreased urinary output MSK: No myalgia, back pain Neuro: No headaches, focal weakness, paresthesias Skin: No rashes or lesions PMFSH Medical History RBBB Spinal stenosis Elevated cholesterol Lyme disease Gordon's palsy Phimosis Nocturia BPH (benign prostatic hyperplasia) Diabetes mellitus, type II Chronic back pain Surgical History No pertinent past surgical history Social History Housing Other:: 2nd floor Are you a primary in home caregiver to a significant other at home: No Do you presently have visiting nurse or other home services: No Unable to assess alcohol history related to: Unknown Alcohol intake: never Patient Tobacco Use Status: Never used Tobacco Smoked in Last 30 Days: No Use of substances other than those prescribed or required for medical reasons: No Advance Directives: No Meds Allergies Allergy/AdvReac Type Severity Reaction Status Date / Time No Known Allergies Allergy Verified 05/21/23 08:30 Active Medications: Current Medications Acetaminophen (Acetaminophen 325 Mg Tablet) 650 mg PO Q6H PRN PRN Reason: Pain, Mild (Pain Scale 1-3) Benzocaine (Throat Lozenge, Medicated Lozenge) 1 lozenge MUCOUS MEM Q2H PRN PRN Reason: Sore Throat Enoxaparin Sodium (Enoxaparin Sodium 40 Mg/0.4 Ml Syringe) 40 mg SUBCUT Q24H PAULA Guaifenesin (Guaifenesin 200 Mg/10 Ml 10 Ml Liquid) 10 ml PO Q6H PRN PRN Reason: cough Multi-Ingred Medicated Throat Walsh (Throat Walsh, Medicated 177 Ml Bottle) 1 spray MUCOUS MEM Q2H PRN PRN Reason: Sore Throat Ondansetron HCl (Ondansetron Hcl 4 Mg/2 Ml Vial) 4 mg IVPUSH Q8H PRN PRN Reason: Nausea and Vomiting Senna (Sennosides 8.6 Mg Tablet) 17.2 mg PO BEDTIME PRN PRN Reason: Constipation Sodium Chloride (0.9 % Sodium Chloride Flush 3 Ml Syringe) 3 ml IVFLUSH QSHIFT PENDING SALE TO [facility] Home Medications Medication Instructions Recorded Confirmed Last Taken Type atorvastatin 10 mg tablet 10 mg PO DAILY 06/29/22 05/21/23 05/20/23 History tamsulosin 0.4 mg capsule 0.8 mg PO BEDTIME 06/29/22 05/21/23 05/20/23 History sitagliptin phosphate 50 1 tab PO BEDTIME 08/17/22 05/21/23 05/20/23 History mg-metformin 1,000 mg tablet (Mayumet) levetiracetam 250 mg tablet 250 mg PO BID 05/21/23 05/21/23 05/20/23 History nabumetone 750 mg tablet 750 mg PO BID PRN mild pain 05/21/23 05/21/23 Unknown History Physical Exam 2 Vital Signs and Narrative: Vital Signs: Last Vital Signs Temp 99.2 F 05/21/23 14:37 Pulse 71 05/21/23 14:37 Resp 20 05/21/23 14:37 BP 115/59 L 05/21/23 14:37 Pulse Ox 95 05/21/23 14:37 O2 Del Method Room Air 05/21/23 14:37 BMI result Body Mass Index 29.3 Constitutional - Awake and Alert, No apparent distress Eyes - PERRLA, EOMI Cardiovascular - S1S2, RRR, No edema Respiratory - Normal lung expansion, Normal respiratory effort, No respiratory distress, CTA bilaterally Gastrointestinal - NT / ND; +BS; No rebound or guarding Extremities - no calf tenderness bilaterally, no swelling Skin - Warm/Dry Neurological - Alert & oriented x3 but unable to provide history independently, CN II-XII in tact, 4/5 strength BUE and BLE Psychological - Appropriate affect Results Labs 05/21/23 08:50 05/21/23 08:50 Labs: Laboratory Results - last 24 hr 05/21/23 05/21/23 05/21/23 08:50 08:55 09:02 MCV 88.7 MCH 29.8 MCHC 33.6 RDW 13.4 Plt Count 168 MPV 10.5 Immature Gran % (Auto) 0.3 Neut % (Auto) 69.6 Lymph % (Auto) 17.5 L Will % (Auto) 12.4 H Eos % (Auto) 0.0 Baso % (Auto) 0.2 Lymph # (Auto) 1.7 Will # (Auto) 1.2 Eos # (Auto) 0.0 Baso # (Auto) 0.0 Abs Immat Gran (auto) 0.03 Absolute Neuts (auto) 6.6 Absolute Nucleated RBC 0.000 Nucleated RBC % (auto) 0.0 PT 13.7 H INR 1.1 VBG pH 7.41 VBG pCO2 45 VBG pO2 33 VBG HCO3 29 H VBG O2 Saturation 44.0 VBG Base Excess 4.2 Anion Gap 14 Estim Creat Clear Calc 55.4 Estimated GFR 59 POC Glucose Random Glucose 112 Lactic Acid 1.9 Calcium 9.4 Magnesium 1.9 Total Bilirubin 0.7 Direct Bilirubin 0.3 AST 29 ALT 28 Alkaline Phosphatase 60 Total Protein 7.7 Albumin 4.0 Lipase 21 Procalcitonin 0.05 TSH 1.05 Urine Color Urine Appearance Urine pH Ur Specific [place] Urine Protein Urine Glucose (UA) Urine Ketones Urine Blood Urine Nitrite Ur Leukocyte Esterase Influenza Type A (PCR) NEGATIVE Influenza Type B (PCR) NEGATIVE RSV RNA Qual (PCR) NEGATIVE SARS-CoV-2 RNA (RT-PCR) POSITIVE A 05/21/23 05/21/23 09:18 09:28 MCV MCH MCHC RDW Plt Count MPV Immature Gran % (Auto) Neut % (Auto) Lymph % (Auto) Will % (Auto) Eos % (Auto) Baso % (Auto) Lymph # (Auto) Will # (Auto) Eos # (Auto) Baso # (Auto) Abs Immat Gran (auto) Absolute Neuts (auto) Absolute Nucleated RBC Nucleated RBC % (auto) PT INR VBG pH VBG pCO2 VBG pO2 VBG HCO3 VBG O2 Saturation VBG Base Excess Anion Gap Estim Creat Clear Calc Estimated GFR POC Glucose 116 H Random Glucose Lactic Acid Calcium Magnesium Total Bilirubin Direct Bilirubin AST ALT Alkaline Phosphatase Total Protein Albumin Lipase Procalcitonin TSH Urine Color Yellow Urine Appearance Clear Urine pH 5.5 Ur Specific [place] 1.020 Urine Protein Trace Urine Glucose (UA) Negative Urine Ketones Trace Urine Blood Negative Urine Nitrite Negative Ur Leukocyte Esterase Negative Influenza Type A (PCR) Influenza Type B (PCR) RSV RNA Qual (PCR) SARS-CoV-2 RNA (RT-PCR) Imaging Radiologist's Impressions: Impressions Chest X-Ray 05/21/23 09:41 IMPRESSION: Unremarkable examination. Assessment and Plan (1) Cardiac arrhythmia, unspecified: Status: Acute (2) Acute diarrhea: Status: Acute (3) Weakness: Status: Acute (4) COVID-19: Status: Acute (5) Acute metabolic encephalopathy: Status: Acute Plan 78-year-old male with history of hyperlipidemia, history of Lyme disease Gordon's palsy, BPH, [id number]-cizopnffh type 2 diabetes, chronic low back pain, unspecified seizure disorder, and right bundle-branch block with history of recurrent falls admitted for COVID-19 related metabolic encephalopathy and weakness. #COVID-19 with metabolic encephalopathy and viral sepsis (resolved on admission) - Initially febrile to 102.9, HR 140s. Lactic acid normal, no end organ damage - no hypoxia, respiratory symptoms mild,no indication for antiviral therapy or Decadron - symptomatic management - airborne/contact precautions - monitor mentation # generalized weakness - secondary to COVID-19, but has been having recurrent falls despite walker usage per - PT evaluation, will likely require placement to STR #Cardiac arrhythmia- unspcified- rate now controlled, initiatlly rvr rate 140 -initial EKG with question afib rvr then nsr vs wenchebach NSR -Repeat EKG now -Monitor on telemetry - cardiology consult #Acute diarrhea- Likely related to COVID-19 - GI panel and C diff PCR pending # elevated troponins - initial troponin 30.9, repeat 96.4. Repeat @1615 -no chest pain, repeat EKG now - ?r/t demand due to RVR -Echo ordered - cardiology consult - monitor on telemetry # hyperlipidemia - statin # uds-phhlgiw-sspntsanu type 2 diabetes - without hyperglycemia - POC glucose, diabetic diet - hold Januvia. Humalog on sliding scale # unspecified seizure disorder - continue Keppra # BPH - continue Flomax DVT prophylaxis-Lovenox full code patient with metabolic encephalopathy secondary to COVID-19 with severe weakness requiring close monitoring of mentation and skilled rehabilitation services with possible placement to [facility]. He has also been in an out of unspecified cardiac arrhythmia is requiring expert consultation and close cardiac monitoring. Quality Stroke Does the patient have a stroke diagnosis?: No VTE Prior VTE?: No VTE Risk Level:: Medical - moderate - high VTE Device Contraindication: Treatment Not Indicated VTE Drug Contraindication: N/A - Med Ordered
[2023-05-21] MEDS: Enoxaparin Sodium 40 MG/0.4 ML SYRINGE SUBCUT (15:44)
[2023-05-21] MEDS: 0.9 % Sodium Chloride Flush 3 ML SYRINGE IVFLUSH (15:44)
[2023-05-21 16:56] LABS: Troponin-I High Sensitivity 79.5 ng/L (<3.5-35.0)
--- NOTE | 2023-05-21 17:41 | PC.NURSE ---
re: late admin of PEG [id number]-- pharmacy to bring to department
[2023-05-21 18:02] LABS: Glucose, Whole Blood 88 mg/dL (60-115)
[2023-05-21] MEDS: Tamsulosin HCL 0.4 MG CAPSULE 0.8 MG PO (20:46)
[2023-05-21] MEDS: Acetaminophen 325 MG TABLET 650 MG PO (20:46)
[2023-05-21] MEDS: levETIRAcetam 250 MG TABLET PO (20:46)
[2023-05-21 20:55] LABS: Glucose, Whole Blood 112 mg/dL (60-115)
[2023-05-21 21:37] LABS: Glucose, Whole Blood 122 mg/dL (60-115)
[2023-05-22] VITALS (8 sets, daily range): BP systolic 106–124; BP diastolic 57–63; PULSE 63–78; RESP 18–24; TEMP 36.1–39.1; O2SAT 93–96; BMI 32.0
[2023-05-22] MEDS: guaiFENesin 200 MG/10 ML 10 ML LIQUID PO ×4 (06:01→20:46)
[2023-05-22] MEDS: Acetaminophen Supp 650 MG SUPP.RECT PR (06:19)
--- NOTE | 2023-05-22 07:00 | CA_ITS ---
Transthoracic Echocardiogram Patient (Last, First, Middle): Pepe Chau, Gender: Male Date of : 1945 Age: 78 Procedure Date: 05/22/2023 Procedure Type: Transthoracic Echocardiogram Location: [facility] [place] Height: 172.72 cm Weight: 87.09 kg BSA: 2.01 m2 Heart Rate: bpm BP: 109 / 63 mmHg Studio Control Operator: Referring MD: Lucia BENTLEY Symptoms: elevated trops Study Quality: Fair ECG Rhythm: Sinus Conclusions: - The left ventricular systolic function is normal. The calculated ejection fraction is 58% by biplane method. - There is moderate to severe aortic valve stenosis. Findings Left Ventricle Normal left ventricular cavity size. There is moderately increased left ventricular wall thickness. The left ventricular systolic function is normal. The calculated ejection fraction is 58% by biplane method. There is no evidence of regional wall motion abnormalities. Diastolic function is normal for age. Right Ventricle Normal right ventricular cavity size and systolic function. Atria Both atria are normal in size. Aortic Valve There is moderate calcification of the aortic valve. There is moderate to severe aortic valve stenosis. The peak aortic velocity is 4.03 m/s with a calculated peak gradient of 65 mmHg. The mean gradient is 42 mmHg. The aortic valve area is 1.16 cm2. There is trace (trivial) aortic valve regurgitation. Dimensionless index 0.27. Mitral Valve There is mild anterior mitral leaflet thickening. There is no mitral valve regurgitation. There is no mitral valve stenosis. Pulmonic Valve The pulmonic valve is likely normal. Tricuspid Valve Normal tricuspid valve structure. There is mild tricuspid valve regurgitation. There is no evidence of pulmonary hypertension. Great Vessels There is mild dilatation of the ascending aorta measuring 3.80 cm. Venous The inferior vena cava is normal in size and collapses greater than 50% with inspiration. Pericardium/Pleural There is no evidence of pericardial effusion. Prior Study Comparison Changes noted compared to prior study dated: 07/02/2022. Progression of aortic stenosis. Measurements 2D Linear Measurements IVSd: 1.40 0.6-0.9/0.6-1.0 cm LVIDd: 3.11 3.9-5.3/4.2-5.9 cm LVIDd Index: 1.55 2.4-3.2/2.2-3.1 cm/m2 LVIDs: 2.00 2.0-3.6 cm LVPWd: 1.41 0.7-1.1 cm Ao Root: 3.40 2.1-3.5 cm LA Diam: 3.50 2.7-3.8/3.0-4.0 cm LAIDs Index: 1.74 1.5-2.3 cm/m2 LV Mass: 184.49 67-162/88-224 g LV Mass Index: 91.79 43-95/49-115 g/m2 LVOT Diam: 2.30 3.0+(-)1.3 cm 2D Systolic Function EF 4C: 59.20 >55% EF 2C: 52.60 >55% EF BiP: 57.80 >55% Mitral Valve MV Pk E: 0.90 MV PK A: 0.75 MV Decel Time: 152.00 E/A: 1.20 E'Lateral: 7.29 E'Medial: 6.64 E/E' Med: 13.50 E/E' Lat: 12.30 PHT: 45.00 MVA PHT: 4.89 Decel [place]: 5.89 Aortic Valve AoV Pk Dylon: 4.03 AoV Mn Dylon: 3.05 AoV VTI: 0.86 AoV Pk Grad: 65.00 Aov Mn Grad: 42.00 IRWIN Cont.VTI: 1.16 LVOT LVOT Pk Dylon: 1.07 LVOT Mn Dylon: 0.75 LVOT VTI: 0.24 LVOT Pk Grad: 5.00 LVOT Mn Grad: 3.00 LVOT Diam: 2.30 LVOT Area: 4.15 Diastolic Function MV Pk E: 0.90 MV Pk A: 0.75 E/A: 1.20 E'Medial: 6.64 E/E' Med: 13.50 E' Laterial: 7.29 E/E' Lat: 12.30 Right Ventricle TAPSE (mm): 28.00 TVS' Dylon: 13.00 Tricuspid Valve TR Pk Dylon: 2.68 TR Pk Grad: 29.00 RA Press: 3.00 RVSP: 32.00 Great Vessels Aorta Ao Root-2D: 3.40 2.0-3.7 cm Ao Asc: 3.80 2.1-3.4 cm Pulmonary Valve PV Pk Dylon: 0.95 Peak PV Grad: 4.00 Updated in Other Vendor System with Status of Final Jacobo Woodall MD electronically signed on 05/23/2023 9:30:49 AM with status of Final
[2023-05-22 08:04] LABS: Glucose, Whole Blood 113 mg/dL (60-115)
[2023-05-22 08:41] LABS: MANUAL DIFF FLAG NO
--- NOTE | 2023-05-22 08:47 | PC.NURSE ---
Provider notified of continued increased temp after tylenol sup
[2023-05-22 08:54] LABS: Basophils Percent Auto 0.1 % (0-2); Hematocrit 40.3 % (42.0-52.0); Hemoglobin 13.7 g/dl (14.0-18.0); Imm Gran Abs Auto 0.02 X10*3/uL (0.00-0.03); Imm Gran Pct Auto 0.2 % (0.0-0.4); Lymphocytes Absolute Auto 1.4 X10*3/uL (1.2-4.9); Lymphocytes Percent Auto 17.8 % (20-40); Mean Corpuscular Hemoglobin 29.8 pg (27.0-33.0); Mean Corpuscular Volume 87.8 fL (80.0-98.0); Mean Platelet Volume 10.5 fL (9.4-12.4); Monocytes Absolute Auto 0.8 X10*3/uL (0.1-1.2); Neutrophils Absolute Auto 5.8 x10*3/uL (2.0-8.3); Neutrophils Percent Auto 71.9 % (45-73); Platelet Count 134 X10*3/uL (160-400); Red Blood Count 4.59 X10*6/uL (4.60-5.80); Red Cell Distribution Width 13.4 % (11.0-16.0)
[2023-05-22] MEDS: 0.9 % Sodium Chloride Flush 3 ML SYRINGE IVFLUSH ×2 (09:07→18:07)
[2023-05-22 09:11] LABS: Anion Gap 12 (12-20); Blood Urea Nitrogen 13 mg/dL (9-16); Calcium 8.4 mg/dL (8.4-10.2); Carbon Dioxide 24 mmol/L (22-29); Chloride 104 mmol/L (96-108); Creatinine Clr Calc Pharmacy 75.6; Estimated Glomerular Filt Rate > 60; Glucose Random 136 mg/dL (60-115); Potassium 4.2 mmol/L (3.3-5.1); Sodium 136 mmol/L (135-145)
--- NOTE | 2023-05-22 09:45 | P.PNIM_ITS ---
Subjective Subjective Date of Service: 05/23/23 Interval History: Seen in follow-up for COVID-19, metabolic encephalopathy, viral sepsis Interval history Sepsis/encephalopathy has resolved. No further arrhythmia noted on manager monitoring, heart rate controlled. Febrile overnight to 102.4. Not eating or drinking much secondary to nausea, no vomiting. Still with chest congestion, cough now productive with white sputum production. No sob, cp. No diarrhea Review of Systems Review of Systems: Yes all other systems are reviewed and are negative Physical Exam 2 Vital Signs: Vital Signs: Last Vital Signs Temp 101.6 F H 05/22/23 08:00 Pulse 73 05/22/23 05:51 Resp 24 H 05/22/23 05:51 BP 109/63 05/22/23 03:01 Pulse Ox 94 05/22/23 03:01 O2 Del Method Room Air 05/22/23 03:01 BMI result Body Mass Index 29.3 Constitutional - Awake but weak appearing, lethargy, No apparent distress Eyes - PERRLA, EOMI Cardiovascular - S1S2, RRR, No edema Respiratory - Normal lung expansion, Normal respiratory effort, No respiratory distress, scattered crackles bilaterally Gastrointestinal - NT / ND; +BS; No rebound or guarding Extremities - no calf tenderness bilaterally, no swelling Skin - Warm/Dry Neurological - Alert & oriented x3 Psychological - Appropriate affect Objective Data Active Medications Acetaminophen (Acetaminophen 325 Mg Tablet) 650 mg PO Q6H PRN PRN Reason: Pain, Mild (Pain Scale 1-3) Last Admin: 05/21/23 20:46 Dose: 650 mg Documented By: SHIMON Albuterol Sulfate (Albuterol Sulfate 90 Mcg 8 Gm Inhaler) 2 puff INHALE RQ4H PRN PRN Reason: Shortness of Breath/Wheezing Atorvastatin Calcium (Atorvastatin Calcium 10 Mg Tablet) 10 mg PO DAILY PAULA Benzocaine (Throat Lozenge, Medicated Lozenge) 1 lozenge MUCOUS MEM Q2H PRN PRN Reason: Sore Throat Dextrose (Dextrose 50 % 25 Gm/50 Ml Syringe) 25 gm IVPUSH Q15M PRN; Protocol PRN Reason: per Hypoglycemia Standing Ord. Enoxaparin Sodium (Enoxaparin Sodium 40 Mg/0.4 Ml Syringe) 40 mg SUBCUT Q24H PAULA Last Admin: 05/21/23 15:44 Dose: 40 mg Documented By: HALLE Glucose (Glucose Gel 15 Gm Gel..Gram.) 15 gm PO Q15M PRN; Protocol PRN Reason: per Hypoglycemia Standing Ord. Guaifenesin (Guaifenesin 200 Mg/10 Ml 10 Ml Liquid) 10 ml PO Q6H [facility] Sodium Chloride (Ns) 1,000 mls @ 100 mls/hr IVCONT .Q10H PAULA Insulin Human Lispro (Insulin Lispro 100 Unit/Ml 3 Ml Vial) 0 unit SUBCUT QIDACHS [facility]; Protocol Last Admin: 05/22/23 08:46 Dose: Not Given Documented By: ESTEPHANIA Non-Admin Reason: No Insulin Coverage Levetiracetam (Levetiracetam 250 Mg Tablet) 250 mg PO BID [facility] Last Admin: 05/21/23 20:46 Dose: 250 mg Documented By: SHIMON Multi-Ingred Medicated Throat [place] (Throat [place], Medicated 177 Ml Bottle) 1 spray MUCOUS MEM Q2H PRN PRN Reason: Sore Throat Non-Formulary Medication (Nabumetone) 750 mg PO BID PRN PRN Reason: mild pain Ondansetron HCl (Ondansetron Hcl 4 Mg/2 Ml Vial) 4 mg IVPUSH Q8H PRN PRN Reason: Nausea and Vomiting Senna (Sennosides 8.6 Mg Tablet) 17.2 mg PO BEDTIME PRN PRN Reason: Constipation Sodium Chloride (0.9 % Sodium Chloride Flush 3 Ml Syringe) 3 ml IVFLUSH QSHIFT [facility] Last Admin: 05/22/23 09:07 Dose: 3 ml Documented By: ESTEPHANIA Tamsulosin HCl (Tamsulosin Hcl 0.4 Mg Capsule) 0.8 mg PO BEDTIME [facility] Last Admin: 05/21/23 20:46 Dose: 0.8 mg Documented By: SHIMON Labs 05/22/23 08:32 05/22/23 08:32 Labs: Laboratory Results - last 24 hr 05/21/23 05/21/23 05/21/23 09:02 09:28 17:57 MCV MCH MCHC RDW Plt Count MPV Immature Gran % (Auto) Neut % (Auto) Lymph % (Auto) [place] % (Auto) Eos % (Auto) Baso % (Auto) Lymph # (Auto) [place] # (Auto) Eos # (Auto) Baso # (Auto) Abs Immat Gran (auto) Absolute Neuts (auto) Absolute Nucleated RBC Nucleated RBC % (auto) Anion Gap Estim Creat Clear Calc Estimated GFR POC Glucose 88 Random Glucose Calcium Urine Color Yellow Urine Appearance Clear Urine pH 5.5 Ur Specific [place] 1.020 Urine Protein Trace Urine Glucose (UA) Negative Urine Ketones Trace Urine Blood Negative Urine Nitrite Negative Ur Leukocyte Esterase Negative Influenza Type A (PCR) NEGATIVE Influenza Type B (PCR) NEGATIVE RSV RNA Qual (PCR) NEGATIVE SARS-CoV-2 RNA (RT-PCR) POSITIVE A 05/21/23 05/21/23 05/22/23 20:45 21:32 08:00 MCV MCH MCHC RDW Plt Count MPV Immature Gran % (Auto) Neut % (Auto) Lymph % (Auto) [place] % (Auto) Eos % (Auto) Baso % (Auto) Lymph # (Auto) [place] # (Auto) Eos # (Auto) Baso # (Auto) Abs Immat Gran (auto) Absolute Neuts (auto) Absolute Nucleated RBC Nucleated RBC % (auto) Anion Gap Estim Creat Clear Calc Estimated GFR POC Glucose 112 122 H 113 Random Glucose Calcium Urine Color Urine Appearance Urine pH Ur Specific [place] Urine Protein Urine Glucose (UA) Urine Ketones Urine Blood Urine Nitrite Ur Leukocyte Esterase Influenza Type A (PCR) Influenza Type B (PCR) RSV RNA Qual (PCR) SARS-CoV-2 RNA (RT-PCR) 05/22/23 08:32 MCV 87.8 MCH 29.8 MCHC 34.0 RDW 13.4 Plt Count 134 L MPV 10.5 Immature Gran % (Auto) 0.2 Neut % (Auto) 71.9 Lymph % (Auto) 17.8 L [place] % (Auto) 10.0 Eos % (Auto) 0.0 Baso % (Auto) 0.1 Lymph # (Auto) 1.4 [place] # (Auto) 0.8 Eos # (Auto) 0.0 Baso # (Auto) 0.0 Abs Immat Gran (auto) 0.02 Absolute Neuts (auto) 5.8 Absolute Nucleated RBC 0.000 Nucleated RBC % (auto) 0.0 Anion Gap 12 Estim Creat Clear Calc 75.6 Estimated GFR > 60 POC Glucose Random Glucose 136 H Calcium 8.4 D Urine Color Urine Appearance Urine pH Ur Specific [place] Urine Protein Urine Glucose (UA) Urine Ketones Urine Blood Urine Nitrite Ur Leukocyte Esterase Influenza Type A (PCR) Influenza Type B (PCR) RSV RNA Qual (PCR) SARS-CoV-2 RNA (RT-PCR) Assessment and Plan (1) Acute metabolic encephalopathy: Status: Acute (2) Cardiac arrhythmia, unspecified: Status: Acute (3) Abnormal ECG: Status: Acute (4) Weakness: Status: Acute (5) COVID-19: Status: Acute Plan 78-year-old male with history of hyperlipidemia, history of Lyme disease Gordon's palsy, BPH, [id number] type 2 diabetes, chronic low back pain, unspecified seizure disorder, and right bundle-branch block with history of recurrent falls admitted for COVID-19 related metabolic encephalopathy and weakness. #COVID-19 with metabolic encephalopathy and viral sepsis (resolved on admission) - remains intermittently febrile. Tylenol p.r.n. initiate 1 L IV NS @ 100 mL/hour -no recurrent arrhythmia, no tachycardia, hypoxia -no indication for antiviral therapy or Decadron -given increased fevers with productive cough, repeat CXR to r/o pneumonia -symptomatic management - airborne/contact precautions - monitor mentation # generalized weakness - secondary to COVID-19, but has been having recurrent falls despite walker usage per - PT evaluation, will likely require placement to STR #Cardiac arrhythmia- unspecified- rate now controlled, initiatlly rvr rate 140- no recurrent arrhythmia overnight -initial EKG with question afib rvr then nsr vs wenchebach NSR -Repeat EKG now -Monitor on telemetry -cardiology consult #Acute diarrhea- resolved - GI panel and C diff PCR pending # elevated troponins -Trop 30.9--> 96.4 --> 79.5 -no chest pain, repeat EKG without any acute ischemic changes, but does show marked sinus arrhythmia, likely PVCs, rate 64 -?r/t demand due to RVR on arrival -Echo ordered -cardiology consult -monitor on telemetry # hyperlipidemia - statin # [id number] type 2 diabetes - without hyperglycemia - POC glucose, diabetic diet - hold Januvia. Humalog on sliding scale # unspecified seizure disorder - continue Keppra # BPH - continue Flomax DVT prophylaxis-Lovenox full code patient requires ongoing inpt stay due to metabolic encephalopathy secondary to COVID-19 with severe weakness requiring close monitoring of mentation and skilled rehabilitation services with possible placement to [facility]. He has also been in an out of unspecified cardiac arrhythmia is requiring expert consultation and close cardiac monitoring. Quality Stroke Does the patient have a stroke diagnosis?: No VTE Prior VTE?: No VTE Risk Level:: Medical - moderate - high VTE Device Contraindication: Treatment Not Indicated VTE Drug Contraindication: N/A - Med Ordered
[2023-05-22] MEDS: 0.9 % Sodium Chloride 1,000 ML 100 ML IVCONT ×2 (09:51→20:47)
[2023-05-22] MEDS: levETIRAcetam 250 MG TABLET PO ×2 (09:52→20:46)
[2023-05-22] MEDS: Atorvastatin Calcium 10 MG TABLET PO (09:52)
[2023-05-22] MEDS: Throat Lozenge, Medicated LOZENGE 1 LOZENGE MUCOUS MEM (09:54)
[2023-05-22] MEDS: ondansetron HCL 4 MG/2 ML VIAL IVPUSH (09:55)
--- NOTE | 2023-05-22 11:31 | P.CONCA_ITS ---
History of Present Illness History of Present Illness Date of Service: 05/22/23 Chief complaint: covid19,encephalopathy, weakness Narrative: This is a cardiology consultation regarding tachycardia on the EKG. Patient has many comorbidities and basically came here for weakness and confusion. In this context, he has been diagnosed to have COVID-19 infection. He is admitted. There was a question of atrial fibrillation initial EKG and hence we have been consulted. Patient was seen in the clinic few months back. At that time, he had had some atypical chest pain. Stress was recommended but not pursued. He also has [id number] aortic stenosis on echocardiogram. Review of Systems 2 Review of Systems: Yes all other systems are reviewed and are negative Constitutional: Constitutional: Reports as per HPI and Reports no additional constitutional complaints Eyes: Eyes: Reports as per HPI and Denies no additional eye complaints ENT: Denies system reviewed and no additional complaints, except as documented and Reports as per HPI Cardiovascular: Cardiovascular: Reports as per HPI, Reports no additional cardiovascular complaints, Denies acrocyanosis, Denies cool extremities, Denies chest pain, Denies leg edema, Denies lightheadedness, Denies palpitations and Denies dyspnea Respiratory: Respiratory: Reports as per HPI, Denies no additional respiratory complaints and Denies dyspnea Gastrointestinal: Gastrointestinal: Reports as per HPI and Denies no additional gastrointestinal complaints Genitourinary: Genitourinary: Reports no additional male genitourinary complaints and Reports as per HPI Musculoskeletal: Musculoskeletal: Reports no additional musculoskeletal complaints and Reports as per HPI Integumentary/Breasts: Skin/Breast: Reports system reviewed and no additional complaints, except as docu Neurologic: Reports system reviewed and no additional complaints, except as documented and Reports as per HPI Psychiatric: Psychiatric: Reports no additional psychiatric complaints and Reports as per HPI Endocrine: Endocrine: Reports no additional endocrine complaints, Reports as per HPI and Denies palpitations Hematologic/Lymphatic: Hematologic/Lymphatic: Reports no additional hematologic/lymphatic complaints and Reports as per HPI Allergic/Immunologic: Allergic/Immunologic: Reports no additional allergic/immunologic complaints and Reports as per HPI PMF Past Medical History Medical History RBBB Spinal stenosis Elevated cholesterol Lyme disease Gordon's palsy Phimosis Nocturia BPH (benign prostatic hyperplasia) Diabetes mellitus, type II Chronic back pain Family History Pertinent family history: No pertinent family history. Surgical History Surgical History No pertinent past surgical history Social History Social History Housing Other:: 2nd floor Are you a primary tree care foreman to a significant other at home: No Do you presently have visiting nurse or other home services: No Unable to assess alcohol history related to: Unknown Alcohol intake: never Patient Tobacco Use Status: Never used Tobacco Smoked in Last 30 Days: No Use of substances other than those prescribed or required for medical reasons: No Advance Directives: No Meds Allergies Allergy/AdvReac Type Severity Reaction Status Date / Time No Known Allergies Allergy Verified 05/21/23 08:30 Active Medications: Current Medications Acetaminophen (Acetaminophen 325 Mg Tablet) 650 mg PO Q6H PRN PRN Reason: Pain, Mild (Pain Scale 1-3) Last Admin: 05/21/23 20:46 Dose: 650 mg Albuterol Sulfate (Albuterol Sulfate 90 Mcg 8 Gm Inhaler) 2 puff INHALE RQ4H PRN PRN Reason: Shortness of Breath/Wheezing Atorvastatin Calcium (Atorvastatin Calcium 10 Mg Tablet) 10 mg PO DAILY PAULA Last Admin: 05/22/23 09:52 Dose: 10 mg Benzocaine (Throat Lozenge, Medicated Lozenge) 1 lozenge MUCOUS MEM Q2H PRN PRN Reason: Sore Throat Last Admin: 05/22/23 09:54 Dose: 1 lozenge Dextrose (Dextrose 50 % 25 Gm/50 Ml Syringe) 25 gm IVPUSH Q15M PRN; Protocol PRN Reason: per Hypoglycemia Standing Ord. Enoxaparin Sodium (Enoxaparin Sodium 40 Mg/0.4 Ml Syringe) 40 mg SUBCUT Q24H PAULA Last Admin: 05/21/23 15:44 Dose: 40 mg Glucose (Glucose Gel 15 Gm Gel..Gram.) 15 gm PO Q15M PRN; Protocol PRN Reason: per Hypoglycemia Standing Ord. Guaifenesin (Guaifenesin 200 Mg/10 Ml 10 Ml Liquid) 10 ml PO Q6H PAULA Last Admin: 05/22/23 09:51 Dose: 10 ml Sodium Chloride (Ns) 1,000 mls @ 100 mls/hr IVCONT .Q10H PAULA Last Admin: 05/22/23 09:51 Dose: 100 mls/hr Insulin Human Lispro (Insulin Lispro 100 Unit/Ml 3 Ml Vial) 0 unit SUBCUT QIDACHS [facility]; Protocol Last Admin: 05/22/23 08:46 Dose: Not Given Levetiracetam (Levetiracetam 250 Mg Tablet) 250 mg PO BID [facility] Last Admin: 05/22/23 09:52 Dose: 250 mg Multi-Ingred Medicated Throat [place] (Throat [place], Medicated 177 Ml Bottle) 1 spray MUCOUS MEM Q2H PRN PRN Reason: Sore Throat Non-Formulary Medication (Nabumetone) 750 mg PO BID PRN PRN Reason: mild pain Ondansetron HCl (Ondansetron Hcl 4 Mg/2 Ml Vial) 4 mg IVPUSH Q8H PRN PRN Reason: Nausea and Vomiting Last Admin: 05/22/23 09:55 Dose: 4 mg Senna (Sennosides 8.6 Mg Tablet) 17.2 mg PO BEDTIME PRN PRN Reason: Constipation Sodium Chloride (0.9 % Sodium Chloride Flush 3 Ml Syringe) [facility] Last Admin: 05/22/23 09:07 Dose: 3 ml Tamsulosin HCl (Tamsulosin Hcl 0.4 Mg Capsule) 0.8 mg PO BEDTIME [facility] Last Admin: 05/21/23 20:46 Dose: 0.8 mg Home Medications Medication Instructions Recorded Confirmed Last Taken Type atorvastatin 10 mg tablet 10 mg PO DAILY 06/29/22 05/21/23 05/20/23 History tamsulosin 0.4 mg capsule 0.8 mg PO BEDTIME 06/29/22 05/21/23 05/20/23 History sitagliptin phosphate 50 1 tab PO BEDTIME 08/17/22 05/21/23 05/20/23 History mg-metformin 1,000 mg tablet (Janumet) levetiracetam 250 mg tablet 250 mg PO BID 05/21/23 05/21/23 05/20/23 History nabumetone 750 mg tablet 750 mg PO BID PRN mild pain 05/21/23 05/21/23 Unknown History Physical Exam 2 Vital Signs: Vital Signs: Last Vital Signs Temp 101.6 F H 05/22/23 08:00 Pulse 77 05/22/23 09:58 Resp 20 05/22/23 09:58 BP 107/58 L 05/22/23 09:58 Pulse Ox 96 05/22/23 09:58 O2 Del Method Room Air 05/22/23 09:58 BMI result Body Mass Index 29.3 Const: General: comfortable and no acute distress O rientation/consciousness: patient oriented x3 HEENT: Other: Unremarkable Head: Yes normal to inspection Neck: Neck: Yes normal visual inspection Chest: Chest palpation & inspection: normal inspection of the chest Resp: Auscultation: clear to auscultation bilaterally Cardio: Palpation: normal PMI Heart sounds: S1 normal heart sound present, S2 normal heart sound present, no gallops, Murmur heart sound present systolic II/ and at the right sternal border and no rubs GI: Palpation (GI): Soft to palpation Back/Spine/Pelvis: Other: unremarkable Skin: General skin exam: no rashes or lesions noted Neuro: General: patient oriented x3 Extrem: General: Yes normal to inspection Psych: Mental Status: mental status grossly normal Objective Labs and Meds 05/22/23 08:32 05/22/23 08:32 Lab results: Laboratory Results - last 24 hr 05/21/23 05/21/23 05/21/23 13:16 16:29 17:57 WBC RBC Hgb Hct MCV MCH MCHC RDW Plt Count MPV Immature Gran % (Auto) Neut % (Auto) Lymph % (Auto) [place] % (Auto) Eos % (Auto) Baso % (Auto) Lymph # (Auto) [place] # (Auto) Eos # (Auto) Baso # (Auto) Abs Immat Gran (auto) Absolute Neuts (auto) Absolute Nucleated RBC Nucleated RBC % (auto) Sodium Potassium Chloride Carbon Dioxide Anion Gap BUN Creatinine Estim Creat Clear Calc Estimated GFR POC Glucose 88 Random Glucose Calcium Troponin I High Sens 96.4 H D 79.5 H 05/21/23 05/21/23 05/22/23 20:45 21:32 08:00 WBC RBC Hgb Hct MCV MCH MCHC RDW Plt Count MPV Immature Gran % (Auto) Neut % (Auto) Lymph % (Auto) [place] % (Auto) Eos % (Auto) Baso % (Auto) Lymph # (Auto) [place] # (Auto) Eos # (Auto) Baso # (Auto) Abs Immat Gran (auto) Absolute Neuts (auto) Absolute Nucleated RBC Nucleated RBC % (auto) Sodium Potassium Chloride Carbon Dioxide Anion Gap BUN Creatinine Estim Creat Clear Calc Estimated GFR POC Glucose 112 122 H 113 Random Glucose Calcium Troponin I High Sens 05/22/23 08:32 WBC 8.0 RBC 4.59 L Hgb 13.7 L Hct 40.3 L MCV 87.8 MCH 29.8 MCHC 34.0 RDW 13.4 Plt Count 134 L MPV 10.5 Immature Gran % (Auto) 0.2 Neut % (Auto) 71.9 Lymph % (Auto) 17.8 L [place] % (Auto) 10.0 Eos % (Auto) 0.0 Baso % (Auto) 0.1 Lymph # (Auto) 1.4 [place] # (Auto) 0.8 Eos # (Auto) 0.0 Baso # (Auto) 0.0 Abs Immat Gran (auto) 0.02 Absolute Neuts (auto) 5.8 Absolute Nucleated RBC 0.000 Nucleated RBC % (auto) 0.0 Sodium 136 Potassium 4.2 Chloride 104 Carbon Dioxide 24 Anion Gap 12 BUN 13 Creatinine 0.88 Estim Creat Clear Calc 75.6 Estimated GFR > 60 POC Glucose Random Glucose 136 H Calcium 8.4 D Troponin I High Sens ECG Interpretation: Initial EKG possibly sinus tachycardia with some PACs. There is some prolongation of baseline NM. In the repeat EKG, sinus rhythm at 64/Min. Premature supraventricular complexes. Right bundle-branch block pattern. Sinus arrhythmia. Imaging Radiologist's impression: Impressions Chest X-Ray 05/21/23 09:41 IMPRESSION: Unremarkable examination. Assessment and Plan (1) Cardiac arrhythmia, unspecified: Status: Acute (2) COVID-19: Status: Acute (3) Elevated troponin: Status: Acute Plan EKG and telemetry reviewed. There is no clear-cut evidence of atrial fibrillation or flutter. Possibly just sinus rhythm with baseline first-degree heart block and some PACs with sinus arrhythmia. No specific management for this. Can monitor while he is on tele. With regard to the elevation of troponins, could be demand related and he could have underlying coronary disease. A stress perfusion imaging was ordered earlier this year but not pursued. Family state that he had a seizure and hence they could not do that. With a history of seizure pharmacological stress with Lexiscan his rate of contraindication. He may need another modality like dobutamine. Otherwise, treat the COVID infection accordingly. Discussed with Dr. Gerardo. Discussed with family at bedside. Procedures Date of Service Date of Service: 05/22/23
--- NOTE | 2023-05-22 11:56 | PC.NURSE ---
300mls urine via condom cath, patietn resting comfortably without s/s of distress
--- NOTE | 2023-05-22 15:25 | MHC.CM.PN ---
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 IMM DELIVERED. PATIENT IS FROM HOME W/ . [employer] 15 HRS/WK. 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 PATIENT AMBULATES W/ A WHEELED WALKER. AND BUSINESS MANAGER [employer] OR UNIVERSITY ASSIST W/ ADL'S. PCP: YARELIS CHONG MD HCP: CM ASSISTED IN COMPLETING HCP. NAMED PRINCESS AGENT. COPY TO PATIENT AND COPY IN CHART. 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 OPEN TO [facility] SERVICES IF RECOMMENDED. CAN TRANSPORT. CM WILL CONTINUE TO FOLLOW.
[2023-05-22 16:25] LABS: Glucose, Whole Blood 112 mg/dL (60-115)
[2023-05-22] MEDS: Enoxaparin Sodium 40 MG/0.4 ML SYRINGE SUBCUT (18:07)
[2023-05-22] MEDS: Tamsulosin HCL 0.4 MG CAPSULE 0.8 MG PO (20:46)
[2023-05-22] MEDS: Acetaminophen 325 MG TABLET 650 MG PO (21:03)
[2023-05-22 21:04] LABS: Glucose, Whole Blood 98 mg/dL (60-115)
[2023-05-23] VITALS (7 sets, daily range): BP systolic 127–141; BP diastolic 65–72; PULSE 69–87; RESP 17–20; TEMP 36.1–37.3; O2SAT 93–96
[2023-05-23] MEDS: 0.9 % Sodium Chloride 1,000 ML 100 ML IVCONT ×2 (05:49→15:21)
[2023-05-23 08:09] LABS: Glucose, Whole Blood 90 mg/dL (60-115)
[2023-05-23] MEDS: levETIRAcetam 250 MG TABLET PO ×2 (09:22→20:45)
[2023-05-23] MEDS: guaiFENesin 200 MG/10 ML 10 ML LIQUID PO ×3 (09:22→20:43)
[2023-05-23] MEDS: 0.9 % Sodium Chloride Flush 3 ML SYRINGE IVFLUSH ×2 (09:23→15:20)
[2023-05-23] MEDS: Atorvastatin Calcium 10 MG TABLET PO (09:23)
[2023-05-23 11:14] LABS: Glucose, Whole Blood 104 mg/dL (60-115)
--- NOTE | 2023-05-23 12:04 | HO.PM.IMPN ---
Subjective Subjective Date of Service: 05/23/23 Interval History: Seen in follow-up for COVID-19, metabolic encephalopathy, viral sepsis Interval history Sepsis/encephalopathy has resolved. No further arrhythmia noted on front desk monitor, heart rate controlled. No fever since last evening Physical Exam Vital Signs: Vital Signs: Last Vital Signs Temp 98.6 F 05/23/23 11:30 Pulse 77 05/23/23 11:30 Resp 20 05/23/23 11:30 BP 128/65 05/23/23 11:30 Pulse Ox 94 05/23/23 11:30 O2 Del Method Room Air 05/23/23 11:30 BMI result Body Mass Index 32.0 Objective Data Active Medications Acetaminophen (Acetaminophen 325 Mg Tablet) 650 mg PO Q6H PRN PRN Reason: Pain, Mild (Pain Scale 1-3) Last Admin: 05/22/23 21:03 Dose: 650 mg Documented By: BECKY Albuterol Sulfate (Albuterol Sulfate 90 Mcg 8 Gm Inhaler) 2 puff INHALE RQ4H PRN PRN Reason: Shortness of Breath/Wheezing Atorvastatin Calcium (Atorvastatin Calcium 10 Mg Tablet) 10 mg PO DAILY [facility] Last Admin: 05/23/23 09:23 Dose: 10 mg Documented By: MICK Benzocaine (Throat Lozenge, Medicated Lozenge) 1 lozenge MUCOUS MEM Q2H PRN PRN Reason: Sore Throat Last Admin: 05/22/23 09:54 Dose: 1 lozenge Documented By: ESTEPHANIA Dextrose (Dextrose 50 % 25 Gm/50 Ml Syringe) 25 gm IVPUSH Q15M PRN; Protocol PRN Reason: per Hypoglycemia Standing Ord. Enoxaparin Sodium (Enoxaparin Sodium 40 Mg/0.4 Ml Syringe) 40 mg SUBCUT Q24H [facility] Last Admin: 05/22/23 18:07 Dose: 40 mg Documented By: [facility] Glucose (Glucose Gel 15 Gm Gel..Gram.) 15 gm PO Q15M PRN; Protocol PRN Reason: per Hypoglycemia Standing Ord. Guaifenesin (Guaifenesin 200 Mg/10 Ml 10 Ml Liquid) 10 ml PO Q6H [facility] Last Admin: 05/23/23 09:22 Dose: 10 ml Documented By: MICK Sodium Chloride (Ns) 1,000 mls @ 100 mls/hr IVCONT .Q10H [facility] Last Admin: 05/23/23 05:49 Dose: 100 mls/hr Documented By: BECKY Insulin Human Lispro (Insulin Lispro 100 Unit/Ml 3 Ml Vial) 0 unit SUBCUT QIDACHS [facility]; Protocol Last Admin: 05/23/23 11:22 Dose: Not Given Documented By: MICK Non-Admin Reason: No Insulin Coverage Levetiracetam (Levetiracetam 250 Mg Tablet) 250 mg PO BID [facility] Last Admin: 05/23/23 09:22 Dose: 250 mg Documented By: MICK Multi-Ingred Medicated Throat [place] (Throat [place], Medicated 177 Ml Bottle) 1 spray MUCOUS MEM Q2H PRN PRN Reason: Sore Throat Non-Formulary Medication (Nabumetone) 750 mg PO BID PRN PRN Reason: mild pain Ondansetron HCl (Ondansetron Hcl 4 Mg/2 Ml Vial) 4 mg IVPUSH Q8H PRN PRN Reason: Nausea and Vomiting Last Admin: 05/22/23 09:55 Dose: 4 mg Documented By: ESTEPHANIA Senna (Sennosides 8.6 Mg Tablet) 17.2 mg PO BEDTIME PRN PRN Reason: Constipation Sodium Chloride (0.9 % Sodium Chloride Flush 3 Ml Syringe) 3 ml IVFLUSH QSHIFT [facility] Last Admin: 05/23/23 09:23 Dose: 3 ml Documented By: MICK Tamsulosin HCl (Tamsulosin Hcl 0.4 Mg Capsule) 0.8 mg PO BEDTIME [facility] Last Admin: 05/22/23 20:46 Dose: 0.8 mg Documented By: BECKY Labs 05/22/23 08:32 05/22/23 08:32 Labs: Laboratory Results - last 24 hr 05/22/23 05/22/23 05/23/23 16:18 20:48 07:40 POC Glucose 112 98 90 05/23/23 10:56 POC Glucose 104 Microbiology Microbiology Results: Microbiology 05/21/23 09:02 Blood Culture - Preliminary Blood - Venous No growth after 48 hours. 05/21/23 08:50 Blood Culture - Preliminary Blood - Venous No growth after 48 hours. Assessment and Plan (1) Acute metabolic encephalopathy: Status: Acute (2) Cardiac arrhythmia, unspecified: Status: Acute (3) Abnormal ECG: Status: Acute (4) Weakness: Status: Acute (5) COVID-19: Status: Acute Plan 78-year-old male with history of hyperlipidemia, history of Lyme disease Gordon's palsy, BPH, [id number] type 2 diabetes, chronic low back pain, unspecified seizure disorder, and right bundle-branch block with history of recurrent falls admitted for COVID-19 related metabolic encephalopathy and weakness. #COVID-19 with metabolic encephalopathy and viral sepsis (resolved on admission), was having intermittent fevers, no fever since 05/22, repeat xray no PNA, cultures have been negative. appear to be progressing well # generalized weakness from covid, PT eval pending, #Cardiac arrhythmia- unspecified- rate now controlled, initiatlly rvr rate 140- no recurrent arrhythmia overnight -initial EKG with question afib rvr then nsr vs wenchebach NSR, no further episode, no additional testing arranged by cardiology at this time. -Monitor on telemetry -cardiology consult #Acute diarrhea- resolved - GI panel and C diff PCR not collected up to now, so cancel # elevated troponins -Trop 30.9--> 96.4 --> 79.5 -no chest pain, repeat EKG without any acute ischemic changes, but does show marked sinus arrhythmia, likely PVCs, rate 64 -?r/t demand due to RVR on arriva. Echo normal ef 58, cardiology to decide on further testingl # hyperlipidemia - statin # uiv-[id number]-[id number] type 2 diabetes - without hyperglycemia - POC glucose, diabetic diet - hold Januvia. Humalog on sliding scale # unspecified seizure disorder - continue Keppra # BPH - continue Flomax DVT prophylaxis-Lovenox full code patient requires ongoing inpt stay due to metabolic encephalopathy secondary to COVID-19 with severe weakness requiring close monitoring of mentation and skilled rehabilitation services with possible placement to [facility]. He has also been in an out of unspecified cardiac arrhythmia is requiring expert consultation and close cardiac monitoring. Quality Stroke Does the patient have a stroke diagnosis?: No VTE Prior VTE?: No VTE Risk Level:: Medical - moderate - high VTE Device Contraindication: Treatment Not Indicated VTE Drug Contraindication: N/A - Med Ordered
--- NOTE | 2023-05-23 14:17 | MHC.CLN ---
NUTRITION CONSULT FOR POOR APPETITE. DIET=CLEAR LIQUIDS. PATIENT WITH DX COVID. MONITOR FOR DIET ADVANCEMENT AND CONSIDER SUPPLEMENT NEEDED.
[2023-05-23] MEDS: Enoxaparin Sodium 40 MG/0.4 ML SYRINGE SUBCUT (15:20)
[2023-05-23] MEDS: Throat Spray, Medicated 177 ML BOTTLE 1 SPRAY MUCOUS MEM (15:25)
[2023-05-23] MEDS: Throat Lozenge, Medicated LOZENGE 1 LOZENGE MUCOUS MEM (15:26)
[2023-05-23 16:56] LABS: Glucose, Whole Blood 125 mg/dL (60-115)
[2023-05-23] MEDS: Acetaminophen 325 MG TABLET 650 MG PO (20:43)
[2023-05-23] MEDS: Tamsulosin HCL 0.4 MG CAPSULE 0.8 MG PO (20:45)
[2023-05-23 20:53] LABS: Glucose, Whole Blood 100 mg/dL (60-115)
[2023-05-24] MEDS: 0.9 % Sodium Chloride 1,000 ML 100 ML IVCONT (01:19)
[2023-05-24 03:14] VITALS: BP 132/74; PULSE 68; RESP 18; TEMP 36.4; O2SAT 97
[2023-05-24] MEDS: guaiFENesin 200 MG/10 ML 10 ML LIQUID PO ×4 (06:03→22:57)
[2023-05-24 07:54] VITALS: BP 174/80; PULSE 74; RESP 14; TEMP 36.4; O2SAT 97
[2023-05-24 08:24] LABS: Glucose, Whole Blood 85 mg/dL (60-115)
--- NOTE | 2023-05-24 08:31 | P.PNIM_ITS ---
Subjective Subjective Date of Service: 05/24/23 Interval History: Seen in follow-up for COVID-19, encephalopathy, weakness Interval history: Reporting cough. No shortness of breath, chest pain. Review of Systems Review of Systems: Yes all other systems are reviewed and are negative Physical Exam 2 Vital Signs: Vital Signs: Last Vital Signs Temp 97.5 F 05/24/23 07:54 Pulse 74 05/24/23 07:54 Resp 14 05/24/23 07:54 BP 174/80 H 05/24/23 07:54 Pulse Ox 97 05/24/23 07:54 O2 Del Method Room Air 05/24/23 07:54 BMI result Body Mass Index 32.0 Constitutional - Awake, tired appearing, No apparent distress Eyes - PERRLA, EOMI Cardiovascular - S1S2, RRR, No edema Respiratory - Normal lung expansion, Normal respiratory effort, No respiratory distress, CTA bilaterally Gastrointestinal - NT / ND; +BS; No rebound or guarding Extremities - no calf tenderness bilaterally, no swelling Skin - Warm/Dry Neurological - Tired appearing but awake & oriented x3 Psychological - Appropriate affect Objective Data Active Medications Acetaminophen (Acetaminophen 325 Mg Tablet) 650 mg PO Q6H PRN PRN Reason: Pain, Mild (Pain Scale 1-3) Last Admin: 05/23/23 20:43 Dose: 650 mg Documented By: GISELE Albuterol Sulfate (Albuterol Sulfate 90 Mcg 8 Gm Inhaler) 2 puff INHALE RQ4H PRN PRN Reason: Shortness of Breath/Wheezing Atorvastatin Calcium (Atorvastatin Calcium 10 Mg Tablet) 10 mg PO DAILY [facility] Last Admin: 05/23/23 09:23 Dose: 10 mg Documented By: MICK Benzocaine (Throat Lozenge, Medicated Lozenge) 1 lozenge MUCOUS MEM Q2H PRN PRN Reason: Sore Throat Last Admin: 05/23/23 15:26 Dose: 1 lozenge Documented By: MICK Dextrose (Dextrose 50 % 25 Gm/50 Ml Syringe) 25 gm IVPUSH Q15M PRN; Protocol PRN Reason: per Hypoglycemia Standing Ord. Enoxaparin Sodium (Enoxaparin Sodium 40 Mg/0.4 Ml Syringe) 40 mg SUBCUT Q24H [facility] Last Admin: 05/23/23 15:20 Dose: 40 mg Documented By: MICK Glucose (Glucose Gel 15 Gm Gel..Gram.) 15 gm PO Q15M PRN; Protocol PRN Reason: per Hypoglycemia Standing Ord. Guaifenesin (Guaifenesin 200 Mg/10 Ml 10 Ml Liquid) 10 ml PO Q6H [facility] Last Admin: 05/24/23 06:03 Dose: 10 ml Documented By: GISELE Sodium Chloride (Ns) 1,000 mls @ 100 mls/hr IVCONT .Q10H [facility] Last Admin: 05/24/23 01:19 Dose: 100 mls/hr Documented By: GISELE Insulin Human Lispro (Insulin Lispro 100 Unit/Ml 3 Ml Vial) 0 unit SUBCUT QIDACHS [facility]; Protocol Last Admin: 05/23/23 20:46 Dose: Not Given Documented By: GISELE Non-Admin Reason: No Insulin Coverage Levetiracetam (Levetiracetam 250 Mg Tablet) 250 mg PO BID [facility] Last Admin: 05/23/23 20:45 Dose: 250 mg Documented By: GISELE Lidocaine (Lidocaine 4 % Patch Adh..Patch) 1 patch TRANSDERMA DAILY [facility]; Protocol Multi-Ingred Medicated Throat [place] (Throat [place], Medicated 177 Ml Bottle) 1 spray MUCOUS MEM Q2H PRN PRN Reason: Sore Throat Last Admin: 05/23/23 15:25 Dose: 1 spray Documented By: MICK Non-Formulary Medication (Nabumetone) 750 mg PO BID PRN PRN Reason: mild pain Ondansetron HCl (Ondansetron Hcl 4 Mg/2 Ml Vial) 4 mg IVPUSH Q8H PRN PRN Reason: Nausea and Vomiting Last Admin: 05/22/23 09:55 Dose: 4 mg Documented By: ESTEPHANIA Senna (Sennosides 8.6 Mg Tablet) 17.2 mg PO BEDTIME PRN PRN Reason: Constipation Sodium Chloride (0.9 % Sodium Chloride Flush 3 Ml Syringe) 3 ml IVFLUSH QSHIFT [facility] Last Admin: 05/24/23 00:07 Dose: Not Given Documented By: GISELE Non-Admin Reason: IV Running Tamsulosin HCl (Tamsulosin Hcl 0.4 Mg Capsule) 0.8 mg PO BEDTIME [facility] Last Admin: 05/23/23 20:45 Dose: 0.8 mg Documented By: GISELE Labs 05/22/23 08:32 05/22/23 08:32 Labs: Laboratory Results - last 24 hr 05/23/23 05/23/23 05/23/23 10:56 16:48 20:46 POC Glucose 104 125 H 100 05/24/23 07:57 POC Glucose 85 Microbiology Microbiology Results: Microbiology 05/21/23 09:02 Blood Culture - Preliminary Blood - Venous No growth after 48 hours. 05/21/23 08:50 Blood Culture - Preliminary Blood - Venous No growth after 48 hours. Assessment and Plan (1) Elevated troponin: Status: Acute (2) Acute metabolic encephalopathy: Status: Acute (3) Cardiac arrhythmia, unspecified: Status: Acute (4) COVID-19: Status: Acute (5) Weakness: Status: Acute Plan 78-year-old male with history of hyperlipidemia, history of Lyme disease Gordon's palsy, BPH, [id number] type 2 diabetes, chronic low back pain, unspecified seizure disorder, and right bundle-branch block with history of recurrent falls admitted for COVID-19 related metabolic encephalopathy and weakness. #COVID-19 with metabolic encephalopathy and viral sepsis (resolved on admission), was having intermittent fevers, no fever since 05/22, repeat xray no PNA, cultures have been negative. appear to be progressing well -no indication for antiviral therapy or steroids # generalized weakness from covid -pt recommending str #Cardiac arrhythmia- unspecified- rate now controlled, initiatlly rvr rate 140- no recurrent arrhythmia overnight -initial EKG with question afib rvr then nsr vs wenchebach NSR, no further episode, no additional testing arranged by cardiology at this time. -cardiology input appreciated -Monitor on telemetry -cardiology consult #Acute diarrhea- resolved - GI panel and C diff PCR not collected up to now, so cancel # elevated troponins -Trop 30.9--> 96.4 --> 79.5 -no chest pain, repeat EKG without any acute ischemic changes, but does show marked sinus arrhythmia, likely PVCs, rate 64 -?r/t demand due to RVR on arrival. Echo normal ef 58 -Outpt follow up with cardiology to determine appropriate outpt testing # hyperlipidemia - statin # iza-ksyqoyc-ssnajdlwh type 2 diabetes - without hyperglycemia - POC glucose, diabetic diet - hold Januvia. Humalog on sliding scale # unspecified seizure disorder - continue Keppra # BPH - continue Flomax DVT prophylaxis-Lovenox full code patient requires ongoing inpt stay due to metabolic encephalopathy secondary to COVID-19 with severe weakness awaiting safe placement to [facility] Quality Stroke Does the patient have a stroke diagnosis?: No VTE Prior VTE?: No VTE Risk Level:: Medical - moderate - high VTE Device Contraindication: Treatment Not Indicated VTE Drug Contraindication: N/A - Med Ordered
[2023-05-24] MEDS: Atorvastatin Calcium 10 MG TABLET PO (09:31)
[2023-05-24] MEDS: levETIRAcetam 250 MG TABLET PO ×2 (09:31→22:57)
[2023-05-24] MEDS: Lidocaine 4 % Patch ADH..PATCH 1 PATCH TRANSDERMA (09:31)
[2023-05-24] MEDS: 0.9 % Sodium Chloride Flush 3 ML SYRINGE IVFLUSH ×3 (09:31→22:57)
[2023-05-24 11:27] VITALS: BP 135/68; PULSE 77; RESP 13; TEMP 36.8; O2SAT 95
[2023-05-24 12:03] LABS: Glucose, Whole Blood 108 mg/dL (60-115)
--- NOTE | 2023-05-24 12:41 | MHC.CM.PN ---
EMR reviewed and per MD rounds, pt is improved, PT recommends [facility]. This CM met with pt and his with joint setter to discuss. They were agreeable to going to [facility] in [place]. This CM made local referrals. [facility] following, but is not able to offer a private room, will need pt to repeat covid test on day 5 (05/25), and can go if covid negative or can offer a bed when covid recovered. Hospitalist updated.
[2023-05-24 15:39] VITALS: BP 159/75; PULSE 80; RESP 13; TEMP 36.8; O2SAT 95
[2023-05-24 16:27] LABS: Glucose, Whole Blood 101 mg/dL (60-115)
[2023-05-24] MEDS: Enoxaparin Sodium 40 MG/0.4 ML SYRINGE SUBCUT (17:16)
[2023-05-24 19:33] VITALS: BP 112/62; PULSE 82; RESP 19; TEMP 36.9; O2SAT 94
[2023-05-24 21:41] LABS: Glucose, Whole Blood 126 mg/dL (60-115)
[2023-05-24] MEDS: Acetaminophen 325 MG TABLET 650 MG PO (22:55)
[2023-05-24] MEDS: Tamsulosin HCL 0.4 MG CAPSULE 0.8 MG PO (22:55)
[2023-05-25] VITALS (7 sets, daily range): BP systolic 128–171; BP diastolic 63–86; PULSE 57–90; RESP 17–20; TEMP 36–38.1; O2SAT 94–97
[2023-05-25] MEDS: Acetaminophen 325 MG TABLET 650 MG PO (06:37)
[2023-05-25] MEDS: guaiFENesin 200 MG/10 ML 10 ML LIQUID PO ×3 (06:37→14:55)
[2023-05-25 07:49] LABS: Glucose, Whole Blood 89 mg/dL (60-115)
[2023-05-25] MEDS: levETIRAcetam 250 MG TABLET PO ×2 (09:23→21:48)
[2023-05-25] MEDS: 0.9 % Sodium Chloride Flush 3 ML SYRINGE IVFLUSH (09:23)
[2023-05-25] MEDS: Atorvastatin Calcium 10 MG TABLET PO (09:23)
--- NOTE | 2023-05-25 13:10 | HO.PM.IMPN ---
Subjective Subjective Date of Service: 05/25/23 Interval History: Seen in follow-up for COVID-19, encephalopathy, weakness Interval history: Reporting cough. No shortness of breath, chest pain. Review of Systems Review of Systems: Yes all other systems are reviewed and are negative Physical Exam Vital Signs: Vital Signs: Last Vital Signs Temp 97.7 F 05/25/23 12:00 Pulse 79 05/25/23 12:00 Resp 18 05/25/23 12:00 BP 147/72 H 05/25/23 12:00 Pulse Ox 94 05/25/23 12:00 O2 Del Method Room Air 05/25/23 12:00 BMI result Body Mass Index 32.0 Constitutional - Awake, tired appearing, No apparent distress Eyes - PERRLA, EOMI Cardiovascular - S1S2, RRR, No edema Respiratory - Normal lung expansion, Normal respiratory effort, No respiratory distress, CTA bilaterally Gastrointestinal - NT / ND; +BS; No rebound or guarding Extremities - no calf tenderness bilaterally, no swelling Skin - Warm/Dry Neurological - Tired appearing but awake & oriented x3 Psychological - Appropriate affect Objective Data Active Medications Acetaminophen (Acetaminophen 325 Mg Tablet) 650 mg PO Q6H PRN PRN Reason: Pain, Mild (Pain Scale 1-3) Last Admin: 05/25/23 06:37 Dose: 650 mg Documented By: GISELE Albuterol Sulfate (Albuterol Sulfate 90 Mcg 8 Gm Inhaler) 2 puff INHALE RQ4H PRN PRN Reason: Shortness of Breath/Wheezing Atorvastatin Calcium (Atorvastatin Calcium 10 Mg Tablet) 10 mg PO DAILY [facility] Last Admin: 05/25/23 09:23 Dose: 10 mg Documented By: DAVIN Benzocaine (Throat Lozenge, Medicated Lozenge) 1 lozenge MUCOUS MEM Q2H PRN PRN Reason: Sore Throat Last Admin: 05/23/23 15:26 Dose: 1 lozenge Documented By: MICK Dextrose (Dextrose 50 % 25 Gm/50 Ml Syringe) 25 gm IVPUSH Q15M PRN; Protocol PRN Reason: per Hypoglycemia Standing Ord. Enoxaparin Sodium (Enoxaparin Sodium 40 Mg/0.4 Ml Syringe) 40 mg SUBCUT Q24H [facility] Last Admin: 05/24/23 17:16 Dose: 40 mg Documented By: MICK Glucose (Glucose Gel 15 Gm Gel..Gram.) 15 gm PO Q15M PRN; Protocol PRN Reason: per Hypoglycemia Standing Ord. Guaifenesin (Guaifenesin 200 Mg/10 Ml 10 Ml Liquid) 10 ml PO Q6H [facility] Last Admin: 05/25/23 09:23 Dose: 10 ml Documented By: DAVIN Insulin Human Lispro (Insulin Lispro 100 Unit/Ml 3 Ml Vial) 0 unit SUBCUT QIDACHS [facility]; Protocol Last Admin: 05/25/23 12:17 Dose: Not Given Documented By: DAVIN Non-Admin Reason: No Insulin Coverage Levetiracetam (Levetiracetam 250 Mg Tablet) 250 mg PO BID [facility] Last Admin: 05/25/23 09:23 Dose: 250 mg Documented By: DAVIN Lidocaine (Lidocaine 4 % Patch Adh..Patch) 1 patch TRANSDERMA DAILY [facility]; Protocol Last Admin: 05/25/23 09:23 Dose: Not Given Documented By: DAVIN Non-Admin Reason: Patient Refused Multi-Ingred Medicated Throat [place] (Throat [place], Medicated 177 Ml Bottle) 1 spray MUCOUS MEM Q2H PRN PRN Reason: Sore Throat Last Admin: 05/23/23 15:25 Dose: 1 spray Documented By: MICK Non-Formulary Medication (Nabumetone) 750 mg PO BID PRN PRN Reason: mild pain Ondansetron HCl (Ondansetron Hcl 4 Mg/2 Ml Vial) 4 mg IVPUSH Q8H PRN PRN Reason: Nausea and Vomiting Last Admin: 05/22/23 09:55 Dose: 4 mg Documented By: ESTEPHANIA Senna (Sennosides 8.6 Mg Tablet) 17.2 mg PO BEDTIME PRN PRN Reason: Constipation Sodium Chloride (0.9 % Sodium Chloride Flush 3 Ml [facility]ringe) [facility] Last Admin: 05/25/23 09:23 Dose: 3 ml Documented By: DAVIN Tamsulosin HCl (Tamsulosin Hcl 0.4 Mg Capsule) 0.8 mg PO BEDTIME [facility] Last Admin: 05/24/23 22:55 Dose: 0.8 mg Documented By: GISELE Labs 05/22/23 08:32 12/31/23 08:32 Labs: Laboratory Results - last 24 hr 05/24/23 05/24/23 05/25/23 15:41 21:34 07:34 POC Glucose 101 126 H 89 COVID-19 (ADA) COVID-19 Clin Com 05/25/23 05/25/23 11:30 12:09 POC Glucose 143 H COVID-19 (ADA) Positive A COVID-19 Clin Com See Note Assessment and Plan (1) Elevated troponin: Status: Acute (2) Acute metabolic encephalopathy: Status: Acute (3) Cardiac arrhythmia, unspecified: Status: Acute (4) COVID-19: Status: Acute (5) Weakness: Status: Acute Plan 78-year-old male with history of hyperlipidemia, history of Lyme disease Gordon's palsy, BPH, soh-cuubesk-[id number] type 2 diabetes, chronic low back pain, unspecified seizure disorder, and right bundle-branch block with history of recurrent falls admitted for COVID-19 related metabolic encephalopathy and weakness. #COVID-19 with metabolic encephalopathy and viral sepsis (resolved on admission), was having intermittent fevers, no fever since 05/22, repeat xray no PNA, cultures have been negative. appear to be progressing well -no indication for antiviral therapy or steroids -repeat test positive 2. Requires negative test for [facility]. Test daily # generalized weakness from covid -pt recommending str #Cardiac arrhythmia- unspecified- rate now controlled, initiatlly rvr rate 140- no recurrent arrhythmia overnight -initial EKG with question afib rvr then nsr vs wenchebach NSR, no further episode, no additional testing arranged by cardiology at this time. -cardiology input appreciated -Monitor on telemetry -cardiology consult #Acute diarrhea- resolved - GI panel and C diff PCR not collected up to now, so cancel # elevated troponins -Trop 30.9--> 96.4 --> 79.5 -no chest pain, repeat EKG without any acute ischemic changes, but does show marked sinus arrhythmia, likely PVCs, rate 64 -?r/t demand due to RVR on arrival. Echo normal ef 58 -Outpt follow up with cardiology to determine appropriate outpt testing # hyperlipidemia - statin # zmw-sykhyud-ayamryrnz type 2 diabetes - without hyperglycemia - POC glucose, diabetic diet - hold Januvia. Humalog on sliding scale # unspecified seizure disorder - continue Keppra # BPH - continue Flomax DVT prophylaxis-Lovenox full code patient requires ongoing inpt stay due to metabolic encephalopathy secondary to COVID-19 with severe weakness awaiting negative covid testing for safe placement to [facility] Quality Stroke Does the patient have a stroke diagnosis?: No VTE Prior VTE?: No VTE Risk Level:: Medical - moderate - high VTE Device Contraindication: Treatment Not Indicated VTE Drug Contraindication: N/A - Med Ordered
[2023-05-26] VITALS (7 sets, daily range): BP systolic 115–164; BP diastolic 64–81; PULSE 62–76; RESP 16–20; TEMP 35.9–37.1; O2SAT 95–98
[2023-05-26] MEDS: Atorvastatin Calcium 10 MG TABLET PO (09:27)
[2023-05-26] MEDS: levETIRAcetam 250 MG TABLET PO ×2 (09:27→21:44)
--- NOTE | 2023-05-26 14:11 | HO.PM.IMPN ---
Subjective Subjective Date of Service: 05/26/23 Interval History: seen and examined this morning follow up for covid 19 history obtained with assistance from car and yard supervisor no overnight events no specific complaints Review of Systems Review of Systems: Yes all other systems are reviewed and are negative Constitutional Constitutional: Denies chills and Denies fever(s) Cardiovascular Cardiovascular: Denies chest pain, Denies palpitations and Denies dyspnea Respiratory Respiratory: Denies cough and Denies dyspnea Endocrine Endocrine: Denies palpitations Physical Exam Vital Signs: Vital Signs: Last Vital Signs Temp 97.0 F 05/26/23 11:38 Pulse 64 05/26/23 11:38 Resp 18 05/26/23 11:38 BP 115/64 05/26/23 11:38 Pulse Ox 97 05/26/23 11:38 O2 Del Method Room Air 05/26/23 11:38 BMI result Body Mass Index 32.0 Const: General: cooperative, comfortable, no acute distress, alert and awake Nutritional Appearance: overweight Resp: Effort & Inspection: normal respiratory effort, able to speak in complete sentences, no respiratory distress and no use of accessory muscles Cardio: Rate: regular rate GI: Inspection: No distended Palpation (GI): Soft to palpation and nontender Neuro: Other: grossly nonfocal Objective Data Active Medications Acetaminophen (Acetaminophen 325 Mg Tablet) 650 mg PO Q6H PRN PRN Reason: Pain, Mild (Pain Scale 1-3) Last Admin: 05/26/23 09:27 Dose: 650 mg Documented By: DONNA Albuterol Sulfate (Albuterol Sulfate 90 Mcg 8 Gm Inhaler) 2 puff INHALE RQ4H PRN PRN Reason: Shortness of Breath/Wheezing Atorvastatin Calcium (Atorvastatin Calcium 10 Mg Tablet) 10 mg PO DAILY [facility] Last Admin: 05/26/23 09:27 Dose: 10 mg Documented By: DONNA Benzocaine (Throat Lozenge, Medicated Lozenge) 1 lozenge MUCOUS MEM Q2H PRN PRN Reason: Sore Throat Last Admin: 05/23/23 15:26 Dose: 1 lozenge Documented By: MICK Dextrose (Dextrose 50 % 25 Gm/50 Ml Syringe) 25 gm IVPUSH Q15M PRN; Protocol PRN Reason: per Hypoglycemia Standing Ord. Enoxaparin Sodium (Enoxaparin Sodium 40 Mg/0.4 Ml Syringe) 40 mg SUBCUT Q24H [facility] Last Admin: 05/25/23 14:55 Dose: 40 mg Documented By: DAVIN Glucose (Glucose Gel 15 Gm Gel..Gram.) 15 gm PO Q15M PRN; Protocol PRN Reason: per Hypoglycemia Standing Ord. Guaifenesin (Guaifenesin 200 Mg/10 Ml 10 Ml Liquid) 10 ml PO Q6H [facility] Last Admin: 05/26/23 09:27 Dose: 10 ml Documented By: DONNA Insulin Human Lispro (Insulin Lispro 100 Unit/Ml 3 Ml Vial) 0 unit SUBCUT QIDACHS [facility]; Protocol Last Admin: 05/26/23 12:08 Dose: Not Given Documented By: DONNA Non-Admin Reason: No Insulin Coverage Levetiracetam (Levetiracetam 250 Mg Tablet) 250 mg PO BID [facility] Last Admin: 05/26/23 09:27 Dose: 250 mg Documented By: DONNA Lidocaine (Lidocaine 4 % Patch Adh..Patch) 1 patch TRANSDERMA DAILY [facility]; Protocol Last Admin: 05/26/23 09:27 Dose: 1 patch Documented By: DONNA Multi-Ingred Medicated Throat [place] (Throat [place], Medicated 177 Ml Bottle) 1 spray MUCOUS MEM Q2H PRN PRN Reason: Sore Throat Last Admin: 05/23/23 15:25 Dose: 1 spray Documented By: MICK Non-Formulary Medication (Nabumetone) 750 mg PO BID PRN PRN Reason: mild pain Ondansetron HCl (Ondansetron Hcl 4 Mg/2 Ml Vial) 4 mg IVPUSH Q8H PRN PRN Reason: Nausea and Vomiting Last Admin: 05/22/23 09:55 Dose: 4 mg Documented By: ESTEPHANIA Senna (Sennosides 8.6 Mg Tablet) 17.2 mg PO BEDTIME PRN PRN Reason: Constipation Sodium Chloride (0.9 % Sodium Chloride Flush 3 Ml Syringe) 3 ml IVFLUSH QSHIFT [facility] Last Admin: 05/26/23 09:34 Dose: 3 ml Documented By: DONNA Tamsulosin HCl (Tamsulosin Hcl 0.4 Mg Capsule) 0.8 mg PO BEDTIME [facility] Last Admin: 05/25/23 21:48 Dose: 0.8 mg Documented By: SOLE Labs 05/22/23 08:32 05/22/23 08:32 Labs: Laboratory Results - last 24 hr 05/25/23 05/25/23 05/26/23 16:04 20:56 07:47 POC Glucose 150 H 116 H 88 05/26/23 11:43 POC Glucose 132 H Microbiology Microbiology Results: Microbiology 05/21/23 09:02 Blood Culture - Final Blood - Venous No growth after 5 days. 05/21/23 08:50 Blood Culture - Final Blood - Venous No growth after 5 days. Assessment and Plan (1) COVID-19: Status: Acute Plan 78-year-old male with history of hyperlipidemia, history of Lyme disease Gordon's palsy, BPH, [id number] type 2 diabetes, chronic low back pain, unspecified seizure disorder, and right bundle-branch block with history of recurrent falls admitted for COVID-19 related metabolic encephalopathy and weakness. #COVID-19 with metabolic encephalopathy and viral sepsis (resolved on admission), was having intermittent fevers, no fever since 05/22, repeat xray no PNA, cultures have been negative. appear to be progressing well -no indication for antiviral therapy or steroids -repeat test positive /2. Requires negative test for STR. Test daily # generalized weakness from covid -pt recommending str #Cardiac arrhythmia- unspecified- rate now controlled, initially rvr rate 140- no recurrent arrhythmia overnight -initial EKG with question afib rvr then nsr vs wenchebach NSR, no further episode, no additional testing arranged by cardiology at this time. -cardiology input appreciated -Monitor on telemetry -cardiology consult # elevated troponins -Trop 30.9--> 96.4 --> 79.5 -no chest pain, repeat EKG without any acute ischemic changes, but does show marked sinus arrhythmia, likely PVCs, rate 64 -?r/t demand due to RVR on arrival. Echo normal ef 58 -Outpt follow up with cardiology to determine appropriate outpt testing #Acute diarrhea- resolved - GI panel and C diff PCR not collected up to now, so cancel # hyperlipidemia - statin # buh-ljzpedj-sfbyqmble type 2 diabetes - without hyperglycemia - POC glucose, diabetic diet - hold Januvia. Humalog on sliding scale # unspecified seizure disorder - continue Keppra # BPH - continue Flomax DVT prophylaxis-Lovenox full code attending - Dr. brothers patient requires ongoing inpt stay due to metabolic encephalopathy secondary to COVID-19 with severe weakness awaiting negative covid testing for safe placement to STR Quality Stroke Does the patient have a stroke diagnosis?: No VTE Prior VTE?: No VTE Risk Level:: Medical - moderate - high VTE Device Contraindication: Treatment Not Indicated VTE Drug Contraindication: N/A - Med Ordered
[2023-05-27] VITALS (7 sets, daily range): BP systolic 116–143; BP diastolic 64–75; PULSE 69–90; RESP 18–20; TEMP 36.3–37.1; O2SAT 94–98
[2023-05-27] MEDS: Atorvastatin Calcium 10 MG TABLET PO (10:29)
--- NOTE | 2023-05-27 14:54 | HO.PM.IMPN ---
Subjective Subjective Date of Service: 05/27/23 Interval History: seen and examined this morning, follow up for COVID-19 encephalopathy/weakness history obtained with the assistance of a bilingual interpreter awake, alert, no specific complaints Review of Systems Review of Systems: Yes all other systems are reviewed and are negative Constitutional Constitutional: Denies chills and Denies fever(s) Cardiovascular Cardiovascular: Denies chest pain and Denies dyspnea Respiratory Respiratory: Denies cough and Denies dyspnea Physical Exam Vital Signs: Vital Signs: Last Vital Signs Temp 97.9 F 05/27/23 14:43 Pulse 85 05/27/23 14:43 Resp 20 05/27/23 14:43 BP 116/69 05/27/23 14:43 Pulse Ox 97 05/27/23 14:43 O2 Del Method Room Air 05/27/23 14:43 BMI result Body Mass Index 32.0 Const: General: cooperative, comfortable, no acute distress, alert and awake Nutritional Appearance: overweight Resp: Effort & Inspection: normal respiratory effort, able to speak in complete sentences, no respiratory distress and no use of accessory muscles Cardio: Rate: regular rate GI: Inspection: No distended Palpation (GI): Soft to palpation and nontender Neuro: Other: grossly nonfocal Objective Data Active Medications Acetaminophen (Acetaminophen 325 Mg Tablet) 650 mg PO Q6H PRN PRN Reason: Pain, Mild (Pain Scale 1-3) Last Admin: 05/26/23 09:27 Dose: 650 mg Documented By: DONNA Albuterol Sulfate (Albuterol Sulfate 90 Mcg 8 Gm Inhaler) 2 puff INHALE RQ4H PRN PRN Reason: Shortness of Breath/Wheezing Atorvastatin Calcium (Atorvastatin Calcium 10 Mg Tablet) 10 mg PO DAILY [facility] Last Admin: 05/27/23 10:29 Dose: 10 mg Documented By: GREG Benzocaine (Throat Lozenge, Medicated Lozenge) 1 lozenge MUCOUS MEM Q2H PRN PRN Reason: Sore Throat Last Admin: 05/23/23 15:26 Dose: 1 lozenge Documented By: MICK Dextrose (Dextrose 50 % 25 Gm/50 Ml Syringe) 25 gm IVPUSH Q15M PRN; Protocol PRN Reason: per Hypoglycemia Standing Ord. Enoxaparin Sodium (Enoxaparin Sodium 40 Mg/0.4 Ml Syringe) 40 mg SUBCUT Q24H [facility] Last Admin: 05/26/23 16:59 Dose: 40 mg Documented By: DONNA Glucose (Glucose Gel 15 Gm Gel..Gram.) 15 gm PO Q15M PRN; Protocol PRN Reason: per Hypoglycemia Standing Ord. Guaifenesin (Guaifenesin 200 Mg/10 Ml 10 Ml Liquid) 10 ml PO Q6H [facility] Last Admin: 05/27/23 10:29 Dose: 10 ml Documented By: GREG Insulin Human Lispro (Insulin Lispro 100 Unit/Ml 3 Ml Vial) 0 unit SUBCUT QIDACHS [facility]; Protocol Last Admin: 05/27/23 12:10 Dose: Not Given Documented By: GREG Non-Admin Reason: No Insulin Coverage Levetiracetam (Levetiracetam 250 Mg Tablet) 250 mg PO BID [facility] Last Admin: 05/27/23 10:29 Dose: 250 mg Documented By: GREG Lidocaine (Lidocaine 4 % Patch Adh..Patch) 1 patch TRANSDERMA DAILY [facility]; Protocol Last Admin: 05/27/23 10:29 Dose: 1 patch Documented By: GREG Multi-Ingred Medicated Throat [place] (Throat [place], Medicated 177 Ml Bottle) 1 spray MUCOUS MEM Q2H PRN PRN Reason: Sore Throat Last Admin: 05/23/23 15:25 Dose: 1 spray Documented By: MICK Non-Formulary Medication (Nabumetone) 750 mg PO BID PRN PRN Reason: mild pain Ondansetron HCl (Ondansetron Hcl 4 Mg/2 Ml Vial) 4 mg IVPUSH Q8H PRN PRN Reason: Nausea and Vomiting Last Admin: 05/22/23 09:55 Dose: 4 mg Documented By: ESTEPHANIA Senna (Sennosides 8.6 Mg Tablet) 17.2 mg PO BEDTIME PRN PRN Reason: Constipation Sodium Chloride (0.9 % Sodium Chloride Flush 3 Ml Syringe) 3 ml IVFLUSH QSHIFT [facility] Last Admin: 05/27/23 10:30 Dose: 3 ml Documented By: GREG Tamsulosin HCl (Tamsulosin Hcl 0.4 Mg Capsule) 0.8 mg PO BEDTIME [facility] Last Admin: 05/26/23 21:40 Dose: 0.8 mg Documented By: [place] Labs 05/22/23 08:32 05/22/23 08:32 Labs: Laboratory Results - last 24 hr 05/26/23 05/26/23 05/26/23 14:20 16:39 19:38 POC Glucose 127 H 144 H COVID-19 (ADA) Positive A COVID-19 Clin Com See Note 05/27/23 05/27/23 05/27/23 08:05 10:50 11:27 POC Glucose 95 136 H COVID-19 (ADA) Positive A COVID-19 Clin Com See Note Microbiology Microbiology Results: Microbiology 05/21/23 09:02 Blood Culture - Final Blood - Venous No growth after 5 days. 05/21/23 08:50 Blood Culture - Final Blood - Venous No growth after 5 days. Assessment and Plan (1) Weakness: Status: Acute (2) COVID-19: Status: Acute Plan 78-year-old male with history of hyperlipidemia, history of Lyme disease Gordon's palsy, BPH, [id number]-yripzhhpl type 2 diabetes, chronic low back pain, unspecified seizure disorder, and right bundle-branch block with history of recurrent falls admitted for COVID-19 related metabolic encephalopathy and weakness. COVID-19 with metabolic encephalopathy and viral sepsis (resolved on admission), was having intermittent fevers, no fever since 05/22, repeat xray no PNA, cultures have been negative. appear to be progressing well -no indication for antiviral therapy or steroids -repeat test continues to be positive Requires negative test for STR. Test daily generalized weakness from covid -pt recommending str Cardiac arrhythmia- unspecified- rate now controlled, initially rvr rate 140- no recurrent arrhythmia -initial EKG with question afib rvr then nsr vs wenchebach NSR, no further episode, no additional testing arranged by cardiology at this time. -cardiology input appreciated -Monitor on telemetry elevated troponins -Trop 30.9--> 96.4 --> 79.5 -no chest pain, repeat EKG without any acute ischemic changes, but does show marked sinus arrhythmia, likely PVCs, rate 64 -?r/t demand due to RVR on arrival. Echo normal ef 58 -Outpt follow up with cardiology to determine appropriate outpt testing Acute diarrhea- resolved - GI panel and C diff PCR not collected up to now, so cancel hyperlipidemia - statin pdc-acggpeq-bnindginb type 2 diabetes - without hyperglycemia - POC glucose, diabetic diet - hold Januvia. Humalog on sliding scale unspecified seizure disorder - continue Keppra BPH - continue Flomax DVT prophylaxis-Lovenox full code attending - Dr. brothers patient requires ongoing inpt stay due to metabolic encephalopathy secondary to COVID-19 with severe weakness awaiting negative covid testing for safe placement to STR Quality Stroke Does the patient have a stroke diagnosis?: No VTE Prior VTE?: No VTE Risk Level:: Medical - moderate - high VTE Device Contraindication: Treatment Not Indicated VTE Drug Contraindication: N/A - Med Ordered
[2023-05-28] VITALS: BP 143/64; PULSE 90; RESP 20; TEMP 36.7
[2023-05-28 03:20] VITALS: BP 124/65; PULSE 74; RESP 20; TEMP 36.6; O2SAT 94
--- NOTE | 2023-05-28 07:43 | HO.PM.IMPN ---
Subjective Subjective Date of Service: 05/28/23 Interval History: seen and examined this morning, follow up for COVID-19 encephalopathy/weakness awake, alert, no specific complaints Review of Systems Review of Systems: Yes all other systems are reviewed and are negative Constitutional Constitutional: Denies chills and Denies fever(s) Cardiovascular Cardiovascular: Denies chest pain and Denies dyspnea Respiratory Respiratory: Denies cough and Denies dyspnea Physical Exam Vital Signs: Vital Signs: Last Vital Signs Temp 97.8 F 05/28/23 03:20 Pulse 74 05/28/23 03:20 Resp 20 05/28/23 03:20 BP 124/65 05/28/23 03:20 Pulse Ox 94 05/28/23 03:20 O2 Del Method Room Air 05/28/23 03:20 BMI result Body Mass Index 32.0 Constitutional - Awake and Alert, No apparent distress Eyes - PERRLA, EOMI Cardiovascular - S1S2, RRR, No edema Respiratory - Normal lung expansion, Normal respiratory effort, No respiratory distress, CTA bilaterally Gastrointestinal - NT / ND; +BS; No rebound or guarding Extremities - no calf tenderness bilaterally, no swelling Skin - Warm/Dry Neurological - Alert & oriented x3 Psychological - Appropriate affect Objective Data Active Medications Acetaminophen (Acetaminophen 325 Mg Tablet) 650 mg PO Q6H PRN PRN Reason: Pain, Mild (Pain Scale 1-3) Last Admin: 05/26/23 09:27 Dose: 650 mg Documented By: DONNA Albuterol Sulfate (Albuterol Sulfate 90 Mcg 8 Gm Inhaler) 2 puff INHALE RQ4H PRN PRN Reason: Shortness of Breath/Wheezing Atorvastatin Calcium (Atorvastatin Calcium 10 Mg Tablet) 10 mg PO DAILY [facility] Last Admin: 05/27/23 10:29 Dose: 10 mg Documented By: GREG Benzocaine (Throat Lozenge, Medicated Lozenge) 1 lozenge MUCOUS MEM Q2H PRN PRN Reason: Sore Throat Last Admin: 05/23/23 15:26 Dose: 1 lozenge Documented By: MICK Dextrose (Dextrose 50 % 25 Gm/50 Ml Syringe) 25 gm IVPUSH Q15M PRN; Protocol PRN Reason: per Hypoglycemia Standing Ord. Enoxaparin Sodium (Enoxaparin Sodium 40 Mg/0.4 Ml Syringe) 40 mg SUBCUT Q24H [facility] Last Admin: 05/27/23 17:12 Dose: 40 mg Documented By: PHYLLIS Glucose (Glucose Gel 15 Gm Gel..Gram.) 15 gm PO Q15M PRN; Protocol PRN Reason: per Hypoglycemia Standing Ord. Guaifenesin (Guaifenesin 200 Mg/10 Ml 10 Ml Liquid) 10 ml PO Q6H [facility] [place] Last Admin: 05/28/23 05:09 Dose: 10 ml Documented By: GILBERT Insulin Human Lispro (Insulin Lispro 100 Unit/Ml 3 Ml Vial) 0 unit SUBCUT QIDACHS [facility]; Protocol Last Admin: 05/27/23 22:30 Dose: Not Given Documented By: GILBERT Non-Admin Reason: No Insulin Coverage Levetiracetam (Levetiracetam 250 Mg Tablet) 250 mg PO BID [facility] [place] Last Admin: 05/27/23 22:56 Dose: 250 mg Documented By: GILBERT Lidocaine (Lidocaine 4 % Patch Adh..Patch) 1 patch TRANSDERMA DAILY [facility] [place]; Protocol Last Admin: 05/27/23 10:29 Dose: 1 patch Documented By: GREG Multi-Ingred Medicated Throat [place] (Throat [place], Medicated 177 Ml Bottle) 1 spray MUCOUS MEM Q2H PRN PRN Reason: Sore Throat Last Admin: 05/23/23 15:25 Dose: 1 spray Documented By: MICK Non-Formulary Medication (Nabumetone) 750 mg PO BID PRN PRN Reason: mild pain Ondansetron HCl (Ondansetron Hcl 4 Mg/2 Ml Vial) 4 mg IVPUSH Q8H PRN PRN Reason: Nausea and Vomiting Last Admin: 05/22/23 09:55 Dose: 4 mg Documented By: ESTEPHANIA Senna (Sennosides 8.6 Mg Tablet) 17.2 mg PO BEDTIME PRN PRN Reason: Constipation Sodium Chloride (0.9 % Sodium Chloride Flush 3 Ml Syringe) 3 ml IVFLUSH QSHIFT [facility] Last Admin: 05/27/23 22:57 Dose: 3 ml Documented By: GILBERT Tamsulosin HCl (Tamsulosin Hcl 0.4 Mg Capsule) 0.8 mg PO BEDTIME [facility] Last Admin: 05/27/23 22:56 Dose: 0.8 mg Documented By: GILBERT Labs 05/22/23 08:32 05/22/23 08:32 Labs: Laboratory Results - last 24 hr 05/27/23 05/27/23 05/27/23 08:05 10:50 11:27 POC Glucose 95 136 H COVID-19 (ADA) Positive A COVID-19 Clin Com See Note 05/27/23 05/27/23 05/28/23 15:51 20:18 07:30 POC Glucose 160 H 147 H 95 COVID-19 (ADA) COVID-19 Clin Com Assessment and Plan (1) Weakness: Status: Acute (2) COVID-19: Status: Acute Plan 78-year-old male with history of hyperlipidemia, history of Lyme disease Gordon's palsy, BPH, nib-mhbwqmp-fqsgjvaud type 2 diabetes, chronic low back pain, unspecified seizure disorder, and right bundle-branch block with history of recurrent falls admitted for COVID-19 related metabolic encephalopathy and weakness. COVID-19 with metabolic encephalopathy and viral sepsis (resolved on admission), was having intermittent fevers, no fever since 05/22, repeat xray no PNA, cultures have been negative. appear to be progressing well -no indication for antiviral therapy or steroids -repeat test continues to be positive Requires negative test for STR. Test daily generalized weakness from covid -pt recommending str Cardiac arrhythmia- unspecified- rate now controlled, initially rvr rate 140- no recurrent arrhythmia -initial EKG with question afib rvr then nsr vs wenchebach NSR, no further episode, no additional testing arranged by cardiology at this time. -cardiology input appreciated -Monitor on telemetry elevated troponins -Trop 30.9--> 96.4 --> 79.5 -no chest pain, repeat EKG without any acute ischemic changes, but does show marked sinus arrhythmia, likely PVCs, rate 64 -?r/t demand due to RVR on arrival. Echo normal ef 58 -Outpt follow up with cardiology to determine appropriate outpt testing Acute diarrhea- resolved - GI panel and C diff PCR not collected up to now, so cancel hyperlipidemia - statin [id number]-zaiearywm type 2 diabetes - without hyperglycemia - POC glucose, diabetic diet - hold Januvia. Humalog on sliding scale unspecified seizure disorder - continue Keppra BPH - continue Flomax DVT prophylaxis-Lovenox full code attending - Dr. brothers patient requires ongoing inpt stay due to metabolic encephalopathy secondary to COVID-19 with severe weakness awaiting negative covid testing for safe placement to STR Quality Stroke Does the patient have a stroke diagnosis?: No VTE Prior VTE?: No VTE Risk Level:: Medical - moderate - high VTE Device Contraindication: Treatment Not Indicated VTE Drug Contraindication: N/A - Med Ordered
[2023-05-28 07:50] VITALS: BP 139/76; PULSE 76; RESP 20; TEMP 36.4; O2SAT 95
[2023-05-28 11:48] VITALS: BP 136/75; PULSE 74; RESP 20; TEMP 36.4; O2SAT 96
[2023-05-28 16:00] VITALS: BP 139/69; PULSE 71; RESP 18; TEMP 36.4; O2SAT 97
[2023-05-28 20:00] VITALS: BP 133/76; PULSE 73; RESP 20; TEMP 37.2; O2SAT 96
[2023-05-29] VITALS: BP 133/76; PULSE 73; RESP 20; TEMP 37.2; O2SAT 96
[2023-05-29 03:52] VITALS: BP 155/69; PULSE 78; RESP 20; TEMP 36.2; O2SAT 96
--- NOTE | 2023-05-29 07:22 | PM.DS ---
DS: Providers Provider Date of Service: 05/29/23 Date of admission: 05/21/23 15:27 Date of discharge: 05/29/23 Primary care physician: Alex Khoury MD Admitting clinician: Lucia Leyva Attending physician on admission: Thomas Garcia Consults: 05/21/23 15:54 Consult to Cardiology Routine Consulting Provider: [facility] Cardiovascular Services Reason for consultation: ?afib?wenckebach, elevated trops Attending physician on discharge: [facility] Discharging clinician: Lucia Leyva DS: Diagnosis Discharge Diagnosis (1) Weakness: Status: Acute (2) COVID-19: Status: Acute DS: Summary Hospital Course Hospital Course: HPI on admission by this provider 05/21: 78-year-old male with history of hyperlipidemia, history of Lyme disease Gordon's palsy, BPH, xsm-sjxtgsw-oupaczsdp type 2 diabetes, chronic low back pain, unspecified seizure disorder, and right bundle-branch block with history of recurrent falls presented to the ED earlier today with his and son with whom he lives for evaluation of significant weakness and confusion that started 2 days ago. Per his , the patient has also been complaining of sore throat, fevers this morning, cough with chest congestion but unable to expectorates. The patient typically ambulates with a walker at baseline but has been so weak he has been unable to stand of zone and has had several episodes of urinary incontinence. This morning at around 05:30, the patient was asking what was for dinner and has not been responsive intermittently. No abdominal pain, nausea, vomiting, diarrhea, dysuria, hematuria, increased urinary frequency, lightheadedness, palpitations, shortness of breath, chest pain. while in the ED, he has been noted to be incontinent of urine and stool with significant diarrhea. Both his and son are also sick with upper respiratory symptoms. On arrival, patient febrile to 102.9, tachycardic to 138, vitals otherwise stable, no Hypoxia or Hypotension. Hematology studies unremarkable. Renal function electrolyte levels normal. VBG reassuring. Initial troponin 30.9, repeat 96.4. Initial EKG questionable- normal sinus rhythm with Wenckebach vs afib per cardiology who reviewed EKG. UA unremarkable. TSH WNL . Positive for COVID-19, negative RSV influenza. Chest x-ray negative for any acute cardiopulmonary abnormality. in the ED, patient has received 2600 mL IVF, 1 g Rocephin. Hospital course: Hospital course uneventful. [place] [facility] without any further dysrrhymia noted on potline monitor. Evaluated by cardiology and interpreted EKG as NSR with some PACS. Repeat EKG showed NSR, rate 64 with a few premature supraventricular complexes. There was no hypoxia or severe respiratory symptoms so COVID-19 was treated symptomatically not requiring on antiviral therapy or steroids. Elevated troponins likely NSTEMI type 2 due to COVID-19 virus and did not require anticoagulation. He was evaluated by PT due to significant weakness recommending STR. Patient has been awaiting transfer to [facility] but has not had negative COVID-19 test. However, today is day 11 of symptoms and airborne/droplet precautions are discontinued. Vital signs and labs remained stable throughout admission. He should continue all home medications and follow up with PCP and transfer to [facility] for further rehabilitation services. Physical Exam Vital Signs: Vital Signs: Last Vital Signs Temp 97.1 F 05/29/23 03:52 Pulse 78 05/29/23 03:52 Resp 20 05/29/23 03:52 BP 155/69 H 05/29/23 03:52 Pulse Ox 96 05/29/23 03:52 O2 Del Method Room Air 05/29/23 03:52 BMI result Body Mass Index 32.0 DS: Data Data Completed and Pending Labs on day of discharge: Laboratory Results - last 24 hr 05/28/23 05/28/23 05/28/23 07:30 10:30 11:26 POC Glucose 95 148 H COVID-19 (ADA) Positive A COVID-19 Clin Com See Note 05/28/23 05/28/23 16:31 20:35 POC Glucose 123 H 143 H COVID-19 (ADA) COVID-19 Clin Com Discharge Plan Discharge Referrals: Name,MD Alex [Primary Care Provider] - 1 Week Discharge Medications: No Action Janumet 50-1,000 mg tablet 1 tab PO BEDTIME nabumetone 750 mg tablet 750 mg PO BID PRN (Reason: mild pain) levetiracetam 250 mg tablet 250 mg PO BID atorvastatin 10 mg tablet 10 mg PO DAILY tamsulosin 0.4 mg capsule 0.8 mg PO BEDTIME
[2023-05-29 07:51] VITALS: BP 149/74; PULSE 77; RESP 18; TEMP 36.3; O2SAT 95
[2023-05-29 09:37] LABS: Anion Gap 10 (12-20); Blood Urea Nitrogen 12 mg/dL (9-16); Calcium 9.4 mg/dL (8.4-10.2); Carbon Dioxide 30 mmol/L (22-29); Chloride 101 mmol/L (96-108); Creatinine Clr Calc Pharmacy 87.7; Estimated Glomerular Filt Rate > 60; Glucose Random 111 mg/dL (60-115); Potassium 3.9 mmol/L (3.3-5.1); Sodium 137 mmol/L (135-145)
[2023-05-29 11:59] VITALS: BP 128/80; PULSE 86; RESP 18; TEMP 36.3; O2SAT 95
--- NOTE | 2023-05-29 12:00 | HO.PM.IMPN ---
Subjective Subjective Date of Service: 05/29/23 Interval History: seen and examined this morning, follow up for COVID-19 encephalopathy/weakness awake, alert, no specific complaints Review of Systems Review of Systems: Yes all other systems are reviewed and are negative Constitutional Constitutional: Denies chills and Denies fever(s) Cardiovascular Cardiovascular: Denies chest pain and Denies dyspnea Respiratory Respiratory: Denies cough and Denies dyspnea Physical Exam Vital Signs: Vital Signs: Last Vital Signs Temp 97.4 F 05/29/23 11:59 Pulse 86 05/29/23 11:59 Resp 18 05/29/23 11:59 BP 128/80 05/29/23 11:59 Pulse Ox 95 05/29/23 11:59 O2 Del Method Room Air 05/29/23 11:59 BMI result Body Mass Index 32.0 Constitutional - Awake and Alert, No apparent distress Eyes - PERRLA, EOMI Cardiovascular - S1S2, RRR, No edema Respiratory - Normal lung expansion, Normal respiratory effort, No respiratory distress, CTA bilaterally Gastrointestinal - NT / ND; +BS; No rebound or guarding Extremities - no calf tenderness bilaterally, no swelling Skin - Warm/Dry Neurological - Alert & oriented x3 Psychological - Appropriate affect Objective Data Active Medications Acetaminophen (Acetaminophen 325 Mg Tablet) 650 mg PO Q6H PRN PRN Reason: Pain, Mild (Pain Scale 1-3) Last Admin: 05/26/23 09:27 Dose: 650 mg Documented By: DONNA Albuterol Sulfate (Albuterol Sulfate 90 Mcg 8 Gm Inhaler) 2 puff INHALE RQ4H PRN PRN Reason: Shortness of Breath/Wheezing Atorvastatin Calcium (Atorvastatin Calcium 10 Mg Tablet) 10 mg PO DAILY [facility] Last Admin: 05/29/23 09:26 Dose: 10 mg Documented By: DUNCAN Benzocaine (Throat Lozenge, Medicated Lozenge) 1 lozenge MUCOUS MEM Q2H PRN PRN Reason: Sore Throat Last Admin: 05/23/23 15:26 Dose: 1 lozenge Documented By: MICK Dextrose (Dextrose 50 % 25 Gm/50 Ml Syringe) 25 gm IVPUSH Q15M PRN; Protocol PRN Reason: per Hypoglycemia Standing Ord. Enoxaparin Sodium (Enoxaparin Sodium 40 Mg/0.4 Ml Syringe) 40 mg SUBCUT Q24H [facility] Last Admin: 05/28/23 17:04 Dose: 40 mg Documented By: ILA Glucose (Glucose Gel 15 Gm Gel..Gram.) 15 gm PO Q15M PRN; Protocol PRN Reason: per Hypoglycemia Standing Ord. Guaifenesin (Guaifenesin 200 Mg/10 Ml 10 Ml Liquid) 10 ml PO Q6H [facility] Last Admin: 05/29/23 09:27 Dose: 10 ml Documented By: DUNCAN Insulin Human Lispro (Insulin Lispro 100 Unit/Ml 3 Ml Vial) 0 unit SUBCUT QIDACHS [facility]; Protocol Last Admin: 05/29/23 11:49 Dose: Not Given Documented By: DUNCAN Non-Admin Reason: No Insulin Coverage Levetiracetam (Levetiracetam 250 Mg Tablet) 250 mg PO BID [facility] Last Admin: 05/29/23 09:26 Dose: 250 mg Documented By: DUNCAN Lidocaine (Lidocaine 4 % Patch Adh..Patch) 1 patch TRANSDERMA DAILY [facility]; Protocol Last Admin: 05/29/23 09:26 Dose: 1 patch Documented By: DUNCAN Multi-Ingred Medicated Throat Downey (Throat [place], Medicated 177 Ml Bottle) 1 spray MUCOUS MEM Q2H PRN PRN Reason: Sore Throat Last Admin: 05/23/23 15:25 Dose: 1 spray Documented By: MICK Ondansetron HCl (Ondansetron Hcl 4 Mg/2 Ml Vial) 4 mg IVPUSH Q8H PRN PRN Reason: Nausea and Vomiting Last Admin: 05/22/23 09:55 Dose: 4 mg Documented By: ESTEPHANIA Senna (Sennosides 8.6 Mg Tablet) 17.2 mg PO BEDTIME PRN PRN Reason: Constipation Sodium Chloride (0.9 % Sodium Chloride Flush 3 Ml Syringe) 3 ml IVFLUSH QSHIFT [facility] Last Admin: 05/29/23 09:27 Dose: 3 ml Documented By: DUNCAN Tamsulosin HCl (Tamsulosin Hcl 0.4 Mg Capsule) 0.8 mg PO BEDTIME [facility] Last Admin: 05/28/23 20:53 Dose: 0.8 mg Documented By: GILBERT Labs 05/22/23 08:32 05/29/23 08:44 Labs: Laboratory Results - last 24 hr 05/28/23 05/28/23 05/29/23 16:31 20:35 07:31 Anion Gap Estim Creat Clear Calc Estimated GFR POC Glucose 123 H 143 H 107 Random Glucose Calcium 05/29/23 05/29/23 08:44 11:15 Anion Gap 10 L Estim Creat Clear Calc 87.7 Estimated GFR > 60 POC Glucose 113 Random Glucose 111 Calcium 9.4 D Assessment and Plan (1) Weakness: Status: Acute (2) COVID-19: Status: Acute Plan 78-year-old male with history of hyperlipidemia, history of Lyme disease Gordon's palsy, BPH, aho-vcnwllf-tofiwldpm type 2 diabetes, chronic low back pain, unspecified seizure disorder, and right bundle-branch block with history of recurrent falls admitted for COVID-19 related metabolic encephalopathy and weakness. COVID-19 with metabolic encephalopathy and viral sepsis (resolved on admission), was having intermittent fevers, no fever since 05/22, repeat xray no PNA, cultures have been negative. appear to be progressing well -no indication for antiviral therapy or steroids -repeat test continues to be positive Requires negative test for STR. Test daily generalized weakness from covid -pt recommending str Cardiac arrhythmia- unspecified- rate now controlled, initially rvr rate 140- no recurrent arrhythmia -initial EKG with question afib rvr then nsr vs wenchebach NSR, no further episode, no additional testing arranged by cardiology at this time. -cardiology input appreciated -Monitor on telemetry elevated troponins -Trop 30.9--> 96.4 --> 79.5 -no chest pain, repeat EKG without any acute ischemic changes, but does show marked sinus arrhythmia, likely PVCs, rate 64 -?r/t demand due to RVR on arrival. Echo normal ef 58 -Outpt follow up with cardiology to determine appropriate outpt testing Acute diarrhea- resolved - GI panel and C diff PCR not collected up to now, so cancel hyperlipidemia - statin rxb-dyktjpj-lsiozwlqf type 2 diabetes - without hyperglycemia - POC glucose, diabetic diet - hold Januvia. Humalog on sliding scale unspecified seizure disorder - continue Keppra BPH - continue Flomax DVT prophylaxis-Lovenox full code attending - Dr. brothers patient requires ongoing inpt stay due to metabolic encephalopathy secondary to COVID-19 with severe weakness awaiting negative covid testing for safe placement to STR Quality Stroke Does the patient have a stroke diagnosis?: No VTE Prior VTE?: No VTE Risk Level:: Medical - moderate - high VTE Device Contraindication: Treatment Not Indicated VTE Drug Contraindication: N/A - Med Ordered
[2023-05-29 16:00] VITALS: BP 125/71; PULSE 77; RESP 18; TEMP 36.4; O2SAT 96
[2023-05-29 19:03] VITALS: BP 135/69; PULSE 85; RESP 20; TEMP 36.4; O2SAT 96
[2023-05-30] VITALS (7 sets, daily range): BP systolic 130–154; BP diastolic 68–85; PULSE 78–85; RESP 15–20; TEMP 36.5–37.3; O2SAT 95–98
[2023-05-30] MEDS: Lidocaine 4 % Patch ADH..PATCH 1 PATCH TRANSDERMA (09:25)
--- NOTE | 2023-05-30 10:48 | HO.PM.IMPN ---
Subjective Subjective Date of Service: 05/30/23 Interval History: seen and examined this morning, follow up for COVID-19 encephalopathy/weakness awake, alert, no specific complaints Review of Systems Review of Systems: Yes all other systems are reviewed and are negative Physical Exam Vital Signs: Vital Signs: Last Vital Signs Temp 97.7 F 05/30/23 07:30 Pulse 81 05/30/23 07:30 Resp 18 05/30/23 07:30 BP 144/73 H 05/30/23 07:30 Pulse Ox 96 05/30/23 07:30 O2 Del Method Room Air 05/30/23 07:30 BMI result Body Mass Index 32.0 Constitutional - Awake and Alert, weak appearing, No apparent distress Eyes - PERRLA, EOMI Cardiovascular - S1S2, RRR, No edema Respiratory - Normal lung expansion, Normal respiratory effort, No respiratory distress, CTA bilaterally Extremities - no calf tenderness bilaterally, no swelling Skin - Warm/Dry Neurological - Alert & oriented x3 Psychological - Appropriate affect Objective Data Active Medications Acetaminophen (Acetaminophen 325 Mg Tablet) 650 mg PO Q6H PRN PRN Reason: Pain, Mild (Pain Scale 1-3) Last Admin: 05/26/23 09:27 Dose: 650 mg Documented By: DONNA Albuterol Sulfate (Albuterol Sulfate 90 Mcg 8 Gm Inhaler) 2 puff INHALE RQ4H PRN PRN Reason: Shortness of Breath/Wheezing Atorvastatin Calcium (Atorvastatin Calcium 10 Mg Tablet) 10 mg PO DAILY [facility] Last Admin: 05/30/23 08:46 Dose: 10 mg Documented By: ISNAI Benzocaine (Throat Lozenge, Medicated Lozenge) 1 lozenge MUCOUS MEM Q2H PRN PRN Reason: Sore Throat Last Admin: 05/23/23 15:26 Dose: 1 lozenge Documented By: MICK Dextrose (Dextrose 50 % 25 Gm/50 Ml Syringe) 25 gm IVPUSH Q15M PRN; Protocol PRN Reason: per Hypoglycemia Standing Ord. Enoxaparin Sodium (Enoxaparin Sodium 40 Mg/0.4 Ml Syringe) 40 mg SUBCUT Q24H [facility] Last Admin: 05/29/23 17:31 Dose: 40 mg Documented By: DUNCAN Glucose (Glucose Gel 15 Gm Gel..Gram.) 15 gm PO Q15M PRN; Protocol PRN Reason: per Hypoglycemia Standing Ord. Guaifenesin (Guaifenesin 200 Mg/10 Ml 10 Ml Liquid) 10 ml PO Q6H [facility] Last Admin: 05/30/23 08:47 Dose: 10 ml Documented By: [facility] Insulin Human Lispro (Insulin Lispro 100 Unit/Ml 3 Ml Vial) 0 unit SUBCUT QIDACHS [facility]; Protocol Last Admin: 05/30/23 08:47 Dose: Not Given Documented By: [facility] Non-Admin Reason: No Insulin Coverage Levetiracetam (Levetiracetam 250 Mg Tablet) 250 mg PO BID [facility] Last Admin: 05/30/23 08:46 Dose: 250 mg Documented By: [facility] Lidocaine (Lidocaine 4 % Patch Adh..Patch) 1 patch TRANSDERMA DAILY [facility]; Protocol Last Admin: 05/29/23 09:26 Dose: 1 patch Documented By: DUNCAN Multi-Ingred Medicated Throat Cas[place] (Throat [place], Medicated 177 Ml Bottle) 1 spray MUCOUS MEM Q2H PRN PRN Reason: Sore Throat Last Admin: 05/23/23 15:25 Dose: 1 spray Documented By: MICK Ondansetron HCl (Ondansetron Hcl 4 Mg/2 Ml Vial) 4 mg IVPUSH Q8H PRN PRN Reason: Nausea and Vomiting Last Admin: 05/22/23 09:55 Dose: 4 mg Documented By: ESTEPHANIA Senna (Sennosides 8.6 Mg Tablet) 17.2 mg PO BEDTIME PRN PRN Reason: Constipation Sodium Chloride (0.9 % Sodium Chloride Flush 3 Ml Syringe) 3 ml IVFLUSH QSHIFT [facility] Last Admin: 05/30/23 08:47 Dose: 3 ml Documented By: [facility] Tamsulosin HCl (Tamsulosin Hcl 0.4 Mg Capsule) 0.8 mg PO BEDTIME [facility] Last Admin: 05/29/23 21:39 Dose: 0.8 mg Documented By: SOPHIASU Labs 05/22/23 08:32 05/29/23 08:44 Labs: Laboratory Results - last 24 hr 05/29/23 05/29/23 05/29/23 11:15 12:07 16:16 POC Glucose 113 132 H COVID-19 (ADA) Positive A COVID-19 Clin Com See Note 05/29/23 05/30/23 05/30/23 19:59 07:02 09:30 POC Glucose 154 H 92 COVID-19 (ADA) Positive A COVID-19 Clin Com See Note Assessment and Plan (1) Weakness: Status: Acute (2) COVID-19: Status: Acute Plan 78-year-old male with history of hyperlipidemia, history of Lyme disease Gordon's palsy, BPH, eou-dvfosmf-bdzdcssva type 2 diabetes, chronic low back pain, unspecified seizure disorder, and right bundle-branch block with history of recurrent falls admitted for COVID-19 related metabolic encephalopathy and weakness. He is asymptomatic, awaiting placement to STR tomorrow COVID-19 with metabolic encephalopathy and viral sepsis (resolved on admission), was having intermittent fevers, no fever since 05/22, repeat xray no PNA, cultures have been negative. appear to be progressing well -no indication for antiviral therapy or steroids -repeat test continues to be positive. Day 10. STR to accept patient tomorrow, 05/31 generalized weakness from covid -pt recommending str Cardiac arrhythmia- unspecified- rate now controlled, initially rvr rate 140- no recurrent arrhythmia -initial EKG with question afib rvr then nsr vs wenchebach NSR, no further episode, no additional testing arranged by cardiology at this time. -cardiology input appreciated -Monitor on telemetry elevated troponins -Trop 30.9--> 96.4 --> 79.5 -no chest pain, repeat EKG without any acute ischemic changes, but does show marked sinus arrhythmia, likely PVCs, rate 64 -?r/t demand due to RVR on arrival. Echo normal ef 58 -Outpt follow up with cardiology to determine appropriate outpt testing Acute diarrhea- resolved - GI panel and C diff PCR not collected up to now, so cancel hyperlipidemia - statin jeg-axwfkmz-krwavndus type 2 diabetes - without hyperglycemia - POC glucose, diabetic diet - hold Januvia. Humalog on sliding scale unspecified seizure disorder - continue Keppra BPH - continue Flomax DVT prophylaxis-Lovenox full code attending - Dr. brothers patient requires ongoing inpt stay due to metabolic encephalopathy secondary to COVID-19 with severe weakness awaiting negative covid testing for safe placement to STR Quality Stroke Does the patient have a stroke diagnosis?: No VTE Prior VTE?: No VTE Risk Level:: Medical - moderate - high VTE Device Contraindication: Treatment Not Indicated VTE Drug Contraindication: N/A - Med Ordered
--- NOTE | 2023-05-30 11:02 | MHC.CM.PN ---
CM met with pt. with a medical director/head team physician, asked pt. if he is willing to go to STR at [facility] tomorrow. He agreed. He had to wait until day 11 of Covid + testing before STR would accept him. CM to make arrangements for BLS transfer on 05/31/23.
[2023-05-30 16:23] LABS: Glucose, Whole Blood 123 mg/dL (60-115)
[2023-05-30] MEDS: guaiFENesin 200 MG/10 ML 10 ML LIQUID PO ×2 (17:43→21:23)
[2023-05-30] MEDS: Enoxaparin Sodium 40 MG/0.4 ML SYRINGE SUBCUT (17:43)
[2023-05-30] MEDS: Acetaminophen 325 MG TABLET 650 MG PO (17:43)
[2023-05-30] MEDS: 0.9 % Sodium Chloride Flush 3 ML SYRINGE IVFLUSH ×2 (17:43→22:06)
[2023-05-30 20:01] LABS: Glucose, Whole Blood 162 mg/dL (60-115)
[2023-05-30] MEDS: Tamsulosin HCL 0.4 MG CAPSULE 0.8 MG PO (21:20)
[2023-05-30] MEDS: Sennosides 8.6 MG TABLET 17.2 MG PO (21:27)
[2023-05-30] MEDS: ondansetron HCL 4 MG/2 ML VIAL IVPUSH (22:06)
[2023-05-30] MEDS: levETIRAcetam 250 MG TABLET PO (22:06)
[2023-05-30] MEDS: Morphine Sulfate 2 MG/ML CARTRIDGE IVPUSH (22:40)
[2023-05-31 03:35] VITALS: BP 129/82; PULSE 68; RESP 16; TEMP 36.6; O2SAT 97
[2023-05-31 08:00] VITALS: BP 134/79; PULSE 94; RESP 18; TEMP 36.3; O2SAT 95
[2023-05-31 08:10] LABS: Glucose, Whole Blood 117 mg/dL (60-115)
[2023-05-31] MEDS: guaiFENesin 200 MG/10 ML 10 ML LIQUID PO (09:21)
[2023-05-31] MEDS: levETIRAcetam 250 MG TABLET PO (09:21)
[2023-05-31] MEDS: Atorvastatin Calcium 10 MG TABLET PO (09:21)
[2023-05-31] MEDS: 0.9 % Sodium Chloride Flush 3 ML SYRINGE IVFLUSH (09:22)
[2023-05-31] MEDS: Lidocaine 4 % Patch ADH..PATCH 1 PATCH TRANSDERMA (09:22)
[2023-05-31 10:27] LABS: MANUAL DIFF FLAG NO
[2023-05-31 10:33] LABS: Basophils Percent Auto 0.1 % (0-2); Eosinophils Percent Auto 0.3 % (0-4); Hematocrit 39.8 % (42.0-52.0); Hemoglobin 13.6 g/dl (14.0-18.0); Imm Gran Abs Auto 0.05 X10*3/uL (0.00-0.03); Imm Gran Pct Auto 0.5 % (0.0-0.4); Lymphocytes Absolute Auto 1.4 X10*3/uL (1.2-4.9); Lymphocytes Percent Auto 13.6 % (20-40); Mean Corpuscular HGB Conc 34.2 g/dl (31.0-36.0); Mean Corpuscular Hemoglobin 29.9 pg (27.0-33.0); Mean Corpuscular Volume 87.5 fL (80.0-98.0); Mean Platelet Volume 10.1 fL (9.4-12.4); Monocytes Absolute Auto 1.1 X10*3/uL (0.1-1.2); Monocytes Percent Auto 11.3 % (2-11); Neutrophils Absolute Auto 7.4 x10*3/uL (2.0-8.3); Neutrophils Percent Auto 74.2 % (45-73); Platelet Count 358 X10*3/uL (160-400); Red Blood Count 4.55 X10*6/uL (4.60-5.80)
[2023-05-31 10:51] LABS: Uric Acid 3.3 mg/dL (3.4-7.0)
--- NOTE | 2023-05-31 11:39 | P.DS_ITS ---
DS: Providers Provider Date of Service: 05/31/23 Date of admission: 05/21/23 15:27 Date of discharge: 05/31/23 Primary care physician: Alex Khoury MD Admitting clinician: Lucia Leyva Attending physician on admission: Thomas Garcia Consults: 05/21/23 15:54 Consult to Cardiology Routine Consulting Provider: [facility] [place] [facility] Reason for consultation: ?afib?wenckebach, elevated trops Attending physician on discharge: [facility] Discharging clinician: Lucia Leyva DS: Diagnosis Discharge Diagnosis (1) Weakness: Status: Acute (2) COVID-19: Status: Acute DS: Summary Hospital Course Hospital Course: HPI on admission by this provider 05/21: 78-year-old male with history of hyperlipidemia, history of Lyme disease Gordon's palsy, BPH, itz-qjnxxvk-yzuxwufnk type 2 diabetes, chronic low back pain, unspecified seizure disorder, and right bundle-branch block with history of recurrent falls presented to the ED earlier today with his and son with whom he lives for evaluation of significant weakness and confusion that started 2 days ago. Per his , the patient has also been complaining of sore throat, fevers this morning, cough with chest congestion but unable to expectorates. The patient typically ambulates with a walker at baseline but has been so weak he has been unable to stand of zone and has had several episodes of urinary incontinence. This morning at around 05:30, the patient was asking what was for dinner and has not been responsive intermittently. No abdominal pain, nausea, vomiting, diarrhea, dysuria, hematuria, increased urinary frequency, lightheadedness, palpitations, shortness of breath, chest pain. while in the ED, he has been noted to be incontinent of urine and stool with significant diarrhea. Both his and son are also sick with upper respiratory symptoms. On arrival, patient febrile to 102.9, tachycardic to 138, vitals otherwise stable, no Hypoxia or Hypotension. Hematology studies unremarkable. Renal function electrolyte levels normal. VBG reassuring. Initial troponin 30.9, repeat 96.4. Initial EKG questionable- normal sinus rhythm with Wenckebach vs afib per cardiology who reviewed EKG. UA unremarkable. TSH WNL . Positive for COVID-19, negative RSV influenza. Chest x-ray negative for any acute cardiopulmonary abnormality. in the ED, patient has received 2600 mL IVF, 1 g Rocephin. Hospital course: Hospital course uneventful. Encephalopathy secondary to COVID 19 infection resolved prior to admission. He was [facility] without any further dysrrhymia noted on vehicle monitor technician. Evaluated by cardiology and interpreted EKG as NSR with some PACS. Repeat EKG showed NSR, rate 64 with a few premature supraventricular complexes. There was no hypoxia or severe respiratory symptoms so COVID-19 was treated symptomatically not requiring on antiviral therapy or steroids. Elevated troponins likely NSTEMI type 2 due to COVID-19 virus and did not require anticoagulation. He was evaluated by PT due to significant weakness recommending STR. Patient has been awaiting transfer to [facility] but has not had negative COVID-19 test. However, today is day 12 of symptoms and airborne/droplet precautions are discontinued. Vital signs and labs remained stable throughout admission. On morning of discharge he is complaining of b/l ankle pain, R>L. He was moved out of bed to chair yesterday after two days in bed. No injury. No swelling, erythema, warmth. Uric acid level not elevated. XRay ordered and shows calcified ossifications of plantar fascia and achilles tendon. He should continue with PT and follow up with mandolin repairer. Recommend tyle nol and topical analgesics as needed. suspect He should continue all home medications and follow up with PCP and transfer to [facility] for further rehabilitation services. Status at Discharge Functional status at discharge: uses cane/walker Overall status at discharge: patient is progressing back to baseline Time Attestation Discharge coordination time: Greater than 30 minutes Quality: Safe Use of Opioids Does Pt have an Active Cancer Diagnosis on the Problem List?: No Quality: Stroke Does the patient have a stroke diagnosis?: No Physical Exam Vital Signs: Vital Signs: Last Vital Signs Temp 97.4 F 05/31/23 08:00 Pulse 94 05/31/23 08:00 Resp 18 05/31/23 08:00 BP 134/79 05/31/23 08:00 Pulse Ox 95 05/31/23 08:00 O2 Del Method Room Air 05/31/23 08:00 BMI result Body Mass Index 32.0 DS: Data Data Completed and Pending Labs on day of discharge: Laboratory Results - last 24 hr 05/30/23 05/30/23 05/31/23 16:15 19:54 07:44 WBC RBC Hgb Hct MCV MCH MCHC RDW Plt Count MPV Immature Gran % (Auto) Neut % (Auto) Lymph % (Auto) [place] % (Auto) Eos % (Auto) Baso % (Auto) Lymph # (Auto) [place] # (Auto) Eos # (Auto) Baso # (Auto) Abs Immat Gran (auto) Absolute Neuts (auto) Absolute Nucleated RBC Nucleated RBC % (auto) POC Glucose 123 H 162 H 117 H Uric Acid 05/31/23 10:13 WBC 10.0 RBC 4.55 L Hgb 13.6 L Hct 39.8 L MCV 87.5 MCH 29.9 MCHC 34.2 RDW 13.0 Plt Count 358 D MPV 10.1 Immature Gran % (Auto) 0.5 H Neut % (Auto) 74.2 H Lymph % (Auto) 13.6 L [place] % (Auto) 11.3 H Eos % (Auto) 0.3 Baso % (Auto) 0.1 Lymph # (Auto) 1.4 [place] # (Auto) 1.1 Eos # (Auto) 0.0 Baso # (Auto) 0.0 Abs Immat Gran (auto) 0.05 H Absolute Neuts (auto) 7.4 Absolute Nucleated RBC 0.000 Nucleated RBC % (auto) 0.0 POC Glucose Uric Acid 3.3 L Discharge Plan Discharge Anticipated Discharge Date/Time: 05/31/23 11:45 Patient Disposition: Xfer SNF Discharge Diagnosis: covid 19 with encephalopathy and weakness, Type 2 NSTEMI Referrals: [facility] [Outside] - 1 Week Name,MD Alex [Primary Care Provider] - 1 Week Discharge Medications: Continued Janumet 50-1,000 mg tablet 1 tab PO BEDTIME nabumetone 750 mg tablet 750 mg PO BID PRN (Reason: mild pain) levetiracetam 250 mg tablet 250 mg PO BID atorvastatin 10 mg tablet 10 mg PO DAILY tamsulosin 0.4 mg capsule 0.8 mg PO BEDTIME Discharge Orders: Discharge Order (Routine); Ordered 05/31/23 Ordered By: Lucia Leyva Diet: Advance to usual diet Activity on Discharge: As tolerated Stand Alone Forms: Patient Portal Discharge page Care Plan Goals: Transfer to short term rehab for further PT/OT services Health Concerns: COVID19 with encephalopathy Weakness Plan of Treatment: COVID-19 -seen by PT recommending short term rehab for further PT/OT services -symptomatic management Ankle pain -Xray shows calcification of plantar fascia and achilles tendon. Negative for gout. Tylenol and topical analgesics as well as ice recommended -Recommend PT at STR and podiatry follow up Assessment: see discharge summary Discharge Date/Time: 05/31/23 13:03
[2023-05-31 11:43] LABS: Glucose, Whole Blood 165 mg/dL (60-115)
[2023-05-31 11:56] VITALS: BP 116/72; PULSE 95; RESP 20; TEMP 36.4; O2SAT 96
--- NOTE | 2023-05-31 12:59 | MHC.CM.PN ---
Second IMM 05/31/23, Pt is discharging today to STR at [facility] [place], he will go via ambulance.
== END 2023-05-31 13:03 | disposition skilled nursing facility (03) | DRG 871 ==
LOC: HO.ED 11:03 → HO.EDOVER 16:15 → HO.IMC 05-22 10:49
PROVIDERS: Internal Medicine; Student in an Organized Health Care Education/Training Program; Admitting Provider Physician Assistant; Emergency Provider Emergency Medicine; PCP Internal Medicine Geriatric Medicine; Visit Provider Physician Assistant
DX: A41.89 Other specified sepsis (principal); G93.41 Metabolic encephalopathy; U07.1 COVID-19; I21.A1 Myocardial infarction type 2; A08.39 Other viral enteritis; M25.572 Pain in left ankle and joints of left foot; M25.571 Pain in right ankle and joints of right foot; I49.1 Atrial premature depolarization; G40.909 Epilepsy, unspecified, not intractable, without status epilepticus; E78.5 Hyperlipidemia, unspecified; N40.0 Benign prostatic hyperplasia without lower urinary tract symptoms; Z79.84 Long term (current) use of oral hypoglycemic drugs; Z79.899 Other long term (current) drug therapy
CPT/HCPCS: 0241U; 36415; 71045; 73600; 80048; 80076; 81003; 82803; 82947; 83605; 83690; 83735; 84145; 84443; 84484; 84550; 85025; 85610; 87040; 87635; 93005; 93306; 97110; 97162; 97530; 99285; J0696; J1650; J2270; J2405; Q9957

== ENCOUNTER 2023-05-21 15:27 | Outpatient (BNV) | payer OTHER, SELFPAY | END 2023-05-22 07:00 | PROVIDERS: Admitting Provider Physician Assistant; Emergency Provider Emergency Medicine; PCP Internal Medicine Geriatric Medicine; Visit Provider Internal Medicine | DX: I35.0 Nonrheumatic aortic (valve) stenosis (principal) | CPT/HCPCS: 93306 ==

== ENCOUNTER → 2023-05-21 15:27 | Outpatient (BNV) | payer OTHER, SELFPAY | PROVIDERS: Admitting Provider Physician Assistant; Emergency Provider Emergency Medicine; PCP Internal Medicine Geriatric Medicine; Visit Provider Internal Medicine | DX: R53.1 Weakness (principal); U07.1 COVID-19 | CPT/HCPCS: 99223; 99231; 99232; 99239 ==

== ENCOUNTER → 2023-05-21 15:27 | Outpatient (BNV) | payer OTHER, SELFPAY | PROVIDERS: Admitting Provider Physician Assistant; Emergency Provider Emergency Medicine; PCP Internal Medicine Geriatric Medicine; Visit Provider Internal Medicine | DX: I49.9 Cardiac arrhythmia, unspecified (principal); U07.1 COVID-19; R79.89 Other specified abnormal findings of blood chemistry | CPT/HCPCS: 93010; 99223 ==

== ENCOUNTER 2023-08-01 08:55 | Outpatient (REF) | payer OTHER, SELFPAY ==
[2023-08-01 12:05] LABS: Anion Gap 12 (12-20); Blood Urea Nitrogen 16 mg/dL (9-16); Calcium 9.5 mg/dL (8.4-10.2); Carbon Dioxide 31 mmol/L (22-29); Chloride 105 mmol/L (96-108); Estimated Glomerular Filt Rate > 60; Glucose Random 85 mg/dL (60-115); Sodium 144 mmol/L (135-145)
== END 2023-08-01 08:56 | disposition home or self-care (01) ==
LOC: HO.HHCL 08:55
PROVIDERS: Visit Provider Internal Medicine Geriatric Medicine
DX: E11.69 Type 2 diabetes mellitus with other specified complication (principal)
CPT/HCPCS: 36415; 80048

== ENCOUNTER 2023-08-07 08:49 | Emergency (ER) | payer OTHER, SELFPAY ==
[2023-08-07 08:53] VITALS: BP 131/78; PULSE 96; RESP 18; TEMP 37; O2SAT 96; BMI 27.3
[2023-08-07 09:15] LABS: MANUAL DIFF FLAG NO
[2023-08-07 09:17] LABS: Basophils Percent Auto 0.2 % (0-2); Eosinophils Percent Auto 0.1 % (0-4); Hematocrit 43.8 % (42.0-52.0); Hemoglobin 14.7 g/dl (14.0-18.0); Imm Gran Abs Auto 0.03 X10*3/uL (0.00-0.03); Imm Gran Pct Auto 0.3 % (0.0-0.4); Lymphocytes Absolute Auto 1.7 X10*3/uL (1.2-4.9); Lymphocytes Percent Auto 19.1 % (20-40); Mean Corpuscular HGB Conc 33.6 g/dl (31.0-36.0); Mean Corpuscular Hemoglobin 30.1 pg (27.0-33.0); Mean Corpuscular Volume 89.6 fL (80.0-98.0); Monocytes Absolute Auto 0.8 X10*3/uL (0.1-1.2); Monocytes Percent Auto 9.4 % (2-11); Neutrophils Absolute Auto 6.3 x10*3/uL (2.0-8.3); Neutrophils Percent Auto 70.9 % (45-73); Platelet Count 200 X10*3/uL (160-400); Red Blood Count 4.89 X10*6/uL (4.60-5.80); Red Cell Distribution Width 13.6 % (11.0-16.0); White Blood Count 8.9 X10*3/uL (4.8-10.8)
[2023-08-07 09:30] LABS: Alanine Aminotransferase 30 U/L (0-40); Alkaline Phosphatase 68 U/L (39-117); Anion Gap 16 (12-20); Aspartate Amino Transferase 32 U/L (5-37); Bilirubin Total 0.9 mg/dL (0.0-1.0); Blood Urea Nitrogen 17 mg/dL (9-16); Calcium 9.4 mg/dL (8.4-10.2); Carbon Dioxide 24 mmol/L (22-29); Chloride 106 mmol/L (96-108); Creatinine Clr Calc Pharmacy 60.6; Estimated Glomerular Filt Rate > 60; Glucose Random 100 mg/dL (60-115); Potassium 4.2 mmol/L (3.3-5.1); Sodium 142 mmol/L (135-145); Total Protein 7.2 g/dL (6.5-8.0)
[2023-08-07 09:54] LABS: Influenza A PCR NEGATIVE (Negative); Influenza B PCR NEGATIVE (Negative); Resp Syncy Virus RNA Qual PCR NEGATIVE (Negative); SARS COV2 PCR INHOUSE NEGATIVE (Negative)
--- NOTE | 2023-08-07 10:20 | ED_ITS ---
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 No other sick contacts, no recent travel, no recent use of antibiotic, no fever, no chills, no abdominal pain. Patient stated last time he vomited was early this morning he has not vomited for 5 hours now, complain of no abdominal pain, stated that diarrhea started to improved too. No history of intra-abdominal surgery. Related Data Home Medications Medication Instructions Recorded Confirmed atorvastatin 10 mg tablet 10 mg PO DAILY 06/29/22 05/21/23 tamsulosin 0.4 mg capsule 0.8 mg PO BEDTIME 06/29/22 05/21/23 sitagliptin phosphate 50 1 tab PO BEDTIME 08/17/22 05/21/23 mg-metformin 1,000 mg tablet (Janumet) levetiracetam 250 mg tablet 250 mg PO BID 05/21/23 05/21/23 nabumetone 750 mg tablet 750 mg PO BID PRN mild pain 05/21/23 05/21/23 Allergies Allergy/AdvReac Type Severity Reaction Status Date / Time No Known Allergies Allergy Verified 05/21/23 08:30 Review of Systems Review of Systems All other systems are reviewed and are negative Constitutional: Reports as per HPI and Reports no additional constitutional complaints Eyes: Reports as per HPI and Reports no additional eye complaints Reports system reviewed and no additional complaints, except as documented Cardiovascular: Reports as per HPI and Reports no additional cardiovascular complaints Respiratory: Reports as per HPI and Reports no additional respiratory complaints Gastrointestinal: Reports as per HPI and Reports no additional gastrointestinal complaints Genitourinary: Reports no additional female genitourinary complaints Musculoskeletal: Reports no additional musculoskeletal complaints Skin/Breast: Reports system reviewed and no additional complaints, except as docu Psychiatric: Reports no additional psychiatric complaints Endocrine: Reports no additional endocrine complaints Hematologic/Lymphatic: Reports no additional hematologic/lymphatic complaints Allergic/Immunologic: Reports no additional allergic/immunologic complaints Reports system reviewed and no additional complaints, except as documented and Reports Abnormal speech present [facility] Past Medical History Medical History RBBB Spinal stenosis Elevated cholesterol Lyme disease Gordon's palsy Phimosis Nocturia BPH (benign prostatic hyperplasia) Diabetes mellitus, type II Chronic back pain Surgical History No pertinent past surgical history Social History Social History Household Members: Spouse and Children Housing: House Housing Other:: 2nd floor Are you a primary youth care professional to a significant other at home: No Do you presently have visiting nurse or other home services: 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 Blood pressure elevated. Heart rate normal. Respiratory rate normal. Temperature normal. Oxygen saturation normal. Appearance: Alert. Oriented X3. No acute distress. Head: Normal external exam. Normocephalic. Atraumatic. No Brewster signs noted. No raccoon eyes noted Eyes: PERRLA. EOMI. Conjunctiva and sclera normal. Eyelids normal. ENT: TM's Normal. Pharynx normal. Uvula midline. Moist mucous membranes. No trismus noted. No drooling noted. No muffled voice noted. Neck: Normal inspection. Neck supple. FROM. No adenopathy. Thyroid Normal. No meningeal signs. No neck mass noted. CVS: Normal heart rate and rhythm. Heart sound normal. No murmurs noted. Pulses normal throughout. Respiratory: No respiratory distress. Painless inspiration. Breath sounds normal. No wheezes/rales/rhonchi noted. Chest nontender. No accessory muscle usage noted or decreased air movement noted. Abdomen: Soft and nontender. Bowel sounds normal in all 4 quadrants. No distention noted. No organomegaly noted. No visible injury noted. Back: No CVA tenderness. Full range of motion noted. Skin: Skin warm and dry. Normal skin color. Normal skin turgor. No rashes/lesions/lacerations noted. Extremities: No lower extremity edema. Extremities exhibit normal range of motion. Extremities nontender. Neuro: Oriented X 3. Cranial nerve exam: II-XII are grossly intact No motor deficit. No sensory deficit. Reflexes normal. Medical Decision Making Medical Decision Making [facility] Narrative: Able to tolerate p.o. intake, nausea, no vomiting, repeat abdominal exam shows no tenderness, no guarding, no rebound tenderness, labs are unremarkable. Differential Diagnosis Differential Diagnoses: The differential diagnosis associated with the presentation includes (Food poisoning, gastroenteritis, colitis, appendicitis, severe anemia, electrolyte derangement.) Admission/Observation Consideration of admission/observation: Escalation of care including admission/observation considered Lab Data [facility] Lab Attestation statement: I reviewed the patient's lab results. 08/07/23 09:11 08/07/23 09:11 Labs: Lab Results 08/07/23 Range/Units 09:11 WBC 8.9 (4.8-10.8) X10*3/uL RBC 4.89 (4.60-5.80) X10*6/uL Hgb 14.7 (14.0-18.0) g/dl Hct 43.8 (42.0-52.0) % MCV 89.6 (80.0-98.0) fL MCH 30.1 (27.0-33.0) pg MCHC 33.6 (31.0-36.0) g/dl RDW 13.6 (11.0-16.0) % Plt Count 200 D (160-400) X10*3/uL MPV 11.0 (9.4-12.4) fL Immature Gran % (Auto) 0.3 (0.0-0.4) % Neut % (Auto) 70.9 (45-73) % Lymph % (Auto) 19.1 L (20-40) % [place] % (Auto) 9.4 (2-11) % Eos % (Auto) 0.1 (0-4) % Baso % (Auto) 0.2 (0-2) % Lymph # (Auto) 1.7 (1.2-4.9) X10*3/uL [place] # (Auto) 0.8 (0.1-1.2) X10*3/uL Eos # (Auto) 0.0 (0.0-0.4) X10*3/uL Baso # (Auto) 0.0 (0.0-0.2) X10*3/uL Abs Immat Gran (auto) 0.03 (0.00-0.03) X10*3/uL Absolute Neuts (auto) 6.3 (2.0-8.3) x10*3/uL Absolute Nucleated RBC 0.000 (0.0-0.012) X10*3/uL Nucleated RBC % (auto) 0.0 (0.0-0.2) /100WBC Sodium 142 (135-145) mmol/L Potassium 4.2 (3.3-5.1) mmol/L Chloride 106 (96-108) mmol/L Carbon Dioxide 24 (22-29) mmol/L Anion Gap 16 (12-20) BUN 17 H (9-16) mg/dL Creatinine 1.02 (0.5-1.4) mg/dL Estim Creat Clear Calc 60.6 Estimated GFR > 60 Random Glucose 100 (60-115) mg/dL Calcium 9.4 (8.4-10.2) mg/dL Total Bilirubin 0.9 (0.0-1.0) mg/dL AST 32 (5-37) U/L ALT 30 (0-40) U/L Alkaline Phosphatase 68 (39-117) U/L Total Protein 7.2 (6.5-8.0) g/dL Albumin 4.0 (3.5-5.0) g/dL Influenza Type A (PCR) NEGATIVE (Negative) Influenza Type B (PCR) NEGATIVE (Negative) RSV RNA Qual (PCR) NEGATIVE (Negative) SARS-CoV-2 RNA (RT-PCR) NEGATIVE (Negative) Discharge Plan Discharge Clinical Impression: Gastroenteritis Patient Disposition: Home, Self-Care Instructions: Gastroenteritis (ED) Prescriptions: No Action Janumet 50-1,000 mg tablet 1 tab PO BEDTIME nabumetone 750 mg tablet 750 mg PO BID PRN (Reason: mild pain) levetiracetam 250 mg tablet 250 mg PO BID atorvastatin 10 mg tablet 10 mg PO DAILY tamsulosin 0.4 mg capsule 0.8 mg PO BEDTIME Referrals: Name,MD Alex [Primary Care Provider] -
[2023-08-07 10:21] LABS: Lipase 16 U/L (8-78)
[2023-08-07 12:56] VITALS: BP 131/74; PULSE 83; RESP 16; TEMP 36.8; O2SAT 97
[2023-08-07 12:57] VITALS: BP 131/74; PULSE 83; RESP 16; TEMP 36.8; O2SAT 97
== END 2023-08-07 12:58 | disposition home or self-care (01) ==
PROVIDERS: Emergency Provider Emergency Medicine; PCP Internal Medicine Geriatric Medicine
DX: K52.9 Noninfective gastroenteritis and colitis, unspecified (principal); E11.9 Type 2 diabetes mellitus without complications; Z11.52 Encounter for screening for COVID-19; Z20.828 Contact with and (suspected) exposure to other viral communicable diseases
CPT/HCPCS: 0241U; 36415; 80053; 83690; 85025; 99282; 99283

== ENCOUNTER 2023-09-15 14:00 | Outpatient (RCR) | payer OTHER, SELFPAY | END 2023-10-19 13:50 | disposition home or self-care (01) | LOC: HO.PT 14:00 | PROVIDERS: PCP Internal Medicine Geriatric Medicine; Visit Provider Nurse Practitioner Family | DX: M72.2 Plantar fascial fibromatosis (principal); M76.60 Achilles tendinitis, unspecified leg | CPT/HCPCS: 97110; 97162; 97530 ==

== ENCOUNTER 2023-09-18 12:37 | Emergency (ER) | payer OTHER, SELFPAY ==
--- NOTE | ~2023-09-18 | XR_ITS ---
EXAMINATION: XR shoulder RT min 2V XR knee LT 4V CLINICAL INFORMATION: PT states pain in right shoulder and left knee COMPARISON: Right shoulder radiograph 03/10/2023 TECHNIQUE: AP internal and external rotation and scapular Y views of the right shoulder, 4 images. AP, lateral and bilateral oblique views of the left knee, 4 images. FINDINGS: Right shoulder: No acute fracture. The humeral head is well-seated within the glenoid fossa. Mild glenohumeral arthrosis with joint space narrowing, subchondral sclerosis and marginal osteophytes. The acromioclavicular joint is intact. Moderate AC joint arthrosis with joint space narrowing and osteophytosis. Soft tissue calcifications along the greater tuberosity again noted. The coracoid process and visualized scapula are intact. The acromiohumeral interval is normal. No evidence of soft tissue swelling. The visualized portions of the lungs are clear. Visualized ribs and clavicle are intact. Left knee: No acute fracture. Alignment is anatomic. Chondrocalcinosis seen in the medial and lateral compartment. Trace suprapatellar joint effusion. Fabella is incidentally noted. Mild tricompartment arthrosis with joint space narrowing and marginal osteophytes. Enthesopathic changes off the superior patella. XR/XR knee LT 4V IMPRESSION: 1. No acute fracture or dislocation of the right shoulder or left knee. 2. Mild to moderate arthrosis of the right shoulder and left knee as described above.
--- NOTE | ~2023-09-18 | XR_ITS ---
EXAMINATION: XR shoulder RT min 2V XR knee LT 4V CLINICAL INFORMATION: PT states pain in right shoulder and left knee COMPARISON: Right shoulder radiograph 03/10/2023 TECHNIQUE: AP internal and external rotation and scapular Y views of the right shoulder, 4 images. AP, lateral and bilateral oblique views of the left knee, 4 images. FINDINGS: Right shoulder: No acute fracture. The humeral head is well-seated within the glenoid fossa. Mild glenohumeral arthrosis with joint space narrowing, subchondral sclerosis and marginal osteophytes. The acromioclavicular joint is intact. Moderate AC joint arthrosis with joint space narrowing and osteophytosis. Soft tissue calcifications along the greater tuberosity again noted. The coracoid process and visualized scapula are intact. The acromiohumeral interval is normal. No evidence of soft tissue swelling. The visualized portions of the lungs are clear. Visualized ribs and clavicle are intact. Left knee: No acute fracture. Alignment is anatomic. Chondrocalcinosis seen in the medial and lateral compartment. Trace suprapatellar joint effusion. Fabella is incidentally noted. Mild tricompartment arthrosis with joint space narrowing and marginal osteophytes. Enthesopathic changes off the superior patella. XR/XR shoulder RT min 2V IMPRESSION: 1. No acute fracture or dislocation of the right shoulder or left knee. 2. Mild to moderate arthrosis of the right shoulder and left knee as described above.
--- NOTE | ~2023-09-18 | CT_ITS ---
EXAMINATION: CT HEAD WITHOUT CONTRAST CLINICAL INFORMATION: Fall COMPARISON: CT head from 02/02/2023 TECHNIQUE: Contiguous axial imaging was performed from the skull base to vertex without intravenous administration of contrast. This CT examination was performed using dose optimization techniques as appropriate, variously including the following: *Automated exposure control *Adjustment of mA and/or kV according to patient size (this includes techniques or standardized protocols for targeted exams where dose is matched to indication/reason for exam; i.e. extremities or head) *Use of iterative reconstruction technique DLP: 1221 mGy-cm FINDINGS: There is no evidence of acute intracranial hemorrhage or territorial infarction. Chronic white matter small vessels changes. No abnormal mass effect or midline shift is seen. Contreras to white matter differentiation is well preserved. No extra-axial fluid collections are identified. The ventricles are normal in size. There is no abnormal attenuation within the brain parenchyma. The osseous structures and soft tissues are normal. Mucoperiosteal thickening of the bilateral maxillary sinuses, right greater than left. The mastoid air cells and visualized portions of the paranasal sinuses are well aerated. CT/CT cervical spine wo IV con IMPRESSION: 1. No acute intracranial pathology. 2. Chronic white matter small vessel ischemic changes. 3. Mucoperiosteal thickening of the bilateral maxillary sinuses, right greater than left. EXAMINATION: Noncontrast CT scan of the cervical spine. INDICATION: Fall COMPARISON: CT cervical spine from 10/17/2022 TECHNIQUE: Helical, multidetector axial images were obtained from the occiput to the upper thorax. Coronal and sagittal reformats of the cervical spine were provided for interpretation. DLP: 1221 mGy-cm FINDINGS: No acute fractures or dislocations of the cervical spine are seen. Multilevel degenerative changes. Anatomic alignment and positioning of the vertebral bodies and posterior elements is noted. The atlantoaxial joint and craniovertebral articulations are normal without evidence of subluxation. There is no prevertebral soft tissue swelling. The thyroid gland and visualized portions of the lung apices and mediastinum are unremarkable. IMPRESSION: 1. No acute visible fracture or dislocation. 2. Multilevel degenerative changes.
[2023-09-18 12:48] VITALS: BP 127/70; PULSE 84; RESP 18; TEMP 36.7; O2SAT 97; BMI 27.2
--- NOTE | 2023-09-18 13:10 | ED_ITS ---
HPI - General Adult General Chief complaint: Fall Stated complaint: Fall 09/18/23 Time Seen by Provider: 09/18/23 14:38 Source: patient Mode of arrival: wheelchair Limitations: language barrier ( Australian-speaking student services counselor utilized) History of Present Illness HPI narrative: patient is a 78-year-old male presents emergency department for evaluation after a fall. He reports that he was attempting to get into family vehicle after having physical therapy for his chronic back pain, he raised his left leg to get into the seat, and somehow his right foot had slipped resulting in him falling backwards onto the ground. Reports that he landed onto his back but somehow did not strike his head. He denies any loss of consciousness or use of anticoagulants medication. At this time he is having pain to the left knee as well as the right shoulder which is chronic in nature due to arthritis, and posterior neck pain. Pain is made worse particularly with movements of the joints. Denies dizziness, lightheadedness, vision changes, neck stiffness, chest pain, shortness of breath, difficulty breathing, numbness or tingling of the extremities, cold sensation to the extremities, saddle paresthesias, bladder or bowel dysfunction. Related Data Home Medications ?Medication ?Instructions ?Recorded ?Confirmed atorvastatin 10 mg tablet 10 mg PO DAILY 06/29/22 05/21/23 tamsulosin 0.4 mg capsule 0.8 mg PO BEDTIME 06/29/22 05/21/23 sitagliptin phosphate 50 1 tab PO BEDTIME 08/17/22 05/21/23 mg-metformin 1,000 mg tablet (Janumet) levetiracetam 250 mg tablet 250 mg PO BID 05/21/23 05/21/23 nabumetone 750 mg tablet 750 mg PO BID PRN mild pain 05/21/23 05/21/23 Allergies Allergy/AdvReac Type Severity Reaction Status Date / Time No Known Allergies Allergy Verified 09/18/23 12:52 Review of Systems Review of Systems: Yes all other systems are reviewed and are negative PMFSH Past Medical History Attestation statement: The following information was validated with the patient. 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) Unable to assess alcohol history related to: Unknown Alcohol intake: never Patient Tobacco Use Status: Never used Tobacco e-Cigarette/Vaping Use: Never Used Advance Directives: Yes Advance Directives on File: Yes Advance Directives Date on File: 06/01/23 Do you have a plan to hurt others: No Plan service: No Physical Exam ED Vital Signs: Vital Signs - 24 hr 09/18/23 12:48 09/18/23 16:11 09/18/23 16:45 Temperature 98.1 F 98 F 98 F Pulse Rate 84 73 73 Respiratory Rate 18 19 19 Blood Pressure 127/70 128/77 128/77 Pulse Oximetry 97 98 98 Oxygen Delivery Method Room Air Room Air Room Air BMI result Body Mass Index 27.2 Appearance: Alert.?Oriented to person, place and time. No acute distress.?Normal affect. Eyes: Pupils equal, round and reactive to light.? ENT: Pharynx normal.?? Neck: Normal inspection.? Neck supple.?? No midline cervical spine tenderness, step-offs, deformities. Full range of motion. CVS: Heart sounds normal. Normal heart rate and rhythm.? Pulses normal.?? Respiratory: No respiratory distress.? Lung sounds clear to auscultation bilaterally?? Abdomen: Soft and non-tender. Normoactive bowel sounds. ? Skin: Skin warm and dry.? Normal skin color.? Extremities: No lower extremity edema.? No calf ttp. Tenderness upon palpation of the left medial knee small amount of localized swelling. No effusion. 2+ DP/PT pulse bilaterally. Anterior and posterior drawer test are negative. Valgus stress test positive. Varus stress test negative. Neuro: Moves all extremities spontaneously. Sensation intact bilaterally. CN II- XII intact. No focal neuro deficits. Course Course Course Narrative: RME: 78 yold male presents to the ED for falling and injuring knee, right shoulder pain, and posterior neck pain. Patient denies any loss of sconsiessouness. Medical Decision Making Medical Decision Making MDM Narrative: patient is a 78-year-old male with past medical history of diabetes mellitus, right bundle-branch block, Lyme disease, hyperlipidemia, BPH who presents emergency department for evaluation of pain after a fall as per HPI. Primary point of concern is pain to the left medial knee, reports he has been unable to bear weight, he is simply dragging the left leg forward with use of weight- bearing entirely on the right and a wheeled walker. The extremity is neurovascularly intact distally. There does not appear to be any obvious deformity, but he does have localized swelling and tenderness to the medial knee. Right shoulder has full range of motion, clinically have low suspicion for fracture dislocation but likely has exacerbation of arthritic pain. No focal neurological deficits to suggest ICH/SDH, no midline cervical spine tenderness, step-offs, deformities to suggest acute cervical osseous abnormality. CT of the head is without acute intracranial pathology, CT of the cervical spine with degenerative changes but no visible fracture or subluxation. XR of the right shoulder and left knee are without fracture or dislocation, there is however arthritic changes that are present. Patient and family made aware of these findings. Reviewed conservative treatment, rest, ice, compression, elevation, William bandage for compression to left knee, Acetaminophen for pain management, outpatient follow-up with primary care provider. Reviewed worrisome signs and symptoms that would warrant re- evaluation emergency department. All questions answered. Stable for discharge. Differential Diagnosis Differential Diagnoses: The differential diagnosis associated with the presentation includes ( See narrative above) Admission/Observation Consideration of admission/observation: Escalation of care including admission/observation considered ( see narrative above) Independent Interpretation I performed an independent interpretation of an: Plain X-Ray ( No acute fracture dislocation of the shoulder or knee) and CT Scan ( no ICH/ fracture) Radiology Impression Discussion of test interpretation with radiology: I have reviewed the radiologist's reading. Radiologist Impression: CT/CT head/brain wo IV con IMPRESSION: 1. No acute intracranial pathology. 2. Chronic white matter small vessel ischemic changes. 3. Mucoperiosteal thickening of the bilateral maxillary sinuses, right greater than left. IMPRESSION: 1. No acute visible fracture or dislocation. 2. Multilevel degenerative changes. XR/XR shoulder RT min 2V IMPRESSION: 1. No acute fracture or dislocation of the right shoulder or left knee. 2. Mild to moderate arthrosis of the right shoulder and left knee as described above. Independent Historian Clinical information obtained from an independent historian. History obtained from or confirmed by: Other ( daughter present who confirms history.) External Record Review External record reviewed: Outpatient record Prescription Management I considered prescription management with: Pain Medication ( Tylenol) Discharge Plan Discharge Clinical Impression: Osteoarthritis, Fall Patient Disposition: Home, Self-Care Instructions: Osteoarthritis (ED), How to Use an Elastic Bandage (ED), Fall Prevention for Older Adults (ED), R.I.C.E. Treatment (ED) Additional Instructions: the CT scan today of head and neck were without any signs of bleeding or fracture. This is very reassuring. The x-ray of the right shoulder and left knee not show any evidence of fracture or dislocation, there is however arthritis in both joints. Please be sure to rest over the next few days, apply ice to areas of pain for 10-15 minutes 3-4 times daily, use William bandage to the left knee as instructed to help with pain and movement of the knee, continue use of walker to avoid weight- bearing to the knee. You can take Tylenol 500 mg, 2 tablets (1,000mg) every 4-6 hours as needed for pain, but not to exceed 3 doses daily (3,000mg).? contact primary care doctor to arrange for a follow-up visit. You may return back to emergency department any new or worsening symptoms or concerns. Prescriptions: No Action Janumet 50-1,000 mg tablet 1 tab PO BEDTIME nabumetone 750 mg tablet 750 mg PO BID PRN (Reason: mild pain) levetiracetam 250 mg tablet 250 mg PO BID atorvastatin 10 mg tablet 10 mg PO DAILY tamsulosin 0.4 mg capsule 0.8 mg PO BEDTIME Referrals: Name,MD Alex [Primary Care Provider] - Interventions: ED Discharge Assessment Last Done: 09/18/23 16:45 Discharge Date/Time: 09/18/23 16:46 Print Language: Australian
[2023-09-18 16:11] VITALS: BP 128/77; PULSE 73; RESP 19; TEMP 36.6; O2SAT 98
[2023-09-18 16:45] VITALS: BP 128/77; PULSE 73; RESP 19; TEMP 36.6; O2SAT 98
== END 2023-09-18 16:46 | disposition home or self-care (01) ==
PROVIDERS: Emergency Provider Student in an Organized Health Care Education/Training Program; PCP Internal Medicine Geriatric Medicine
DX: Z04.3 Encounter for examination and observation following other accident (principal); M17.12 Unilateral primary osteoarthritis, left knee; M19.011 Primary osteoarthritis, right shoulder; M54.2 Cervicalgia; E11.9 Type 2 diabetes mellitus without complications; Z91.81 History of falling
CPT/HCPCS: 70450; 72125; 73030; 73564; 99283; 99284

== ENCOUNTER → 2024-02-14 10:03 | Outpatient (REF) | payer OTHER, SELFPAY | LOC: HO.SL 10:03 | PROVIDERS: PCP Internal Medicine Geriatric Medicine; Visit Provider Internal Medicine Geriatric Medicine | DX: Z13.89 Encounter for screening for other disorder (principal) ==

== ENCOUNTER → 2024-07-03 13:57 | Outpatient (REF) | payer OTHER, SELFPAY ==
--- OUTSIDE RECORDS SUMMARY | 2024-07-03 14:59 | XMS_ITS | Clinical Summary ---
Author Organization [employer] Address [address] [facility] [address] [place] [address] Care Team Providers Care Fisher Diver Net Name Role Phone Name, Alex PENA Primary Care Provider [phone] Allergies No known active allergies Medications nabumetone (Relafen) 750 MG tabletIndicatio ns:Type 2 diabetes mellitus with other specified complication, without long-term current use of insulin (CMS/HCC) TAKE 1 TABLET BY MOUTH NEEDED IN THE MORNING AND AT BEDTIME FOR MILD PAIN 60 tablet 02/15/2023 Active levETIRAcetam (Keppra) 250 MG tablet Take 1 tablet by mouth 2 times daily. 03/30/2023 Active empagliflozin-m etFORMIN ER (Synjardy XR) 10-1000 MG 24 hr tablet Take 1 tablet by mouth with breakfast. 90 tablet 2 05/02/2024 05/02/20 25 Active atorvastatin (Lipitor) 40 MG tablet Take 1 tablet (40 mg) by mouth Once per day. 90 tablet 2 05/02/2024 05/02/20 25 Active aspirin 81 MG chewable tablet Chew 1 tablet (81 mg) Once per day. 90 tablet 2 05/02/2024 05/02/20 25 Active tamsulosin (Flomax) 0.4 MG 24 hr capsuleIndicati ons:Type 2 diabetes mellitus with other specified complication, without long-term current use of insulin (CMS/HCC) TAKE 2 CAPSULES BY MOUTH EVERY DAY 30 MINUTES AFTER THE SAME MEAL 180 capsule 3 05/02/2024 Active Active Problems Problem Noted Date Diagnosed Date Pre-op evaluation 03/23/2024 Assessment & Plan (03/23/2024 2:14 PM EDT): EKG Interpretation: EKG today is abnormal with NSR, first degree AV block and RBBB. -The incidence of perioperative cardiovascular events varies according to the patient risk profile, patient's functional capacity, and risk of the proposed surgery. Active cardiac conditions that are contraindications to elective surgery: Surgery-Specific Cardiac Risk: low Cardiac risk by patient profile (RCRI): Patient has 0 risk factors corresponding to 0.4%risk of a major cardiac event during surgery. Functional capacity = 4 METS. The patient reports being able to walk up 1 one flight of stairs and 2 blocks without stopping. This patient is at low risk for an low risk procedure. The patient is at acceptable risk for the proposed procedure. Reviewed with patient that no surgery is completely free of risk and this evaluation is to assist surgeon in accurately reviewing informed consent. Medication Recs: -Hold aspirin and NSAIDs 5 days before surgery -Stop Synjardy XR 1 day before surgery Neck muscle spasm 03/23/2024 Assessment & Plan (03/23/2024 2:16 PM EDT): Rx sent for flexeril 5 mg TID prn for neck spasms Med instructions and precautions reviewed including medication may cause drowsiness. Hypersomnia 03/23/2024 Assessment & Plan (03/23/2024 2:17 PM EDT): Reordered home sleep study referral today Left leg weakness 10/18/2023 Fall 10/14/2023 Gastroenteritis 10/14/2023 Osteoarthritis 10/14/2023 RBBB 07/06/2023 Weakness 07/06/2023 Non-rheumatic aortic stenosis 07/06/2023 Seizure 04/08/2023 Type 2 diabetes mellitus 08/18/2022 Spinal stenosis of lumbar region 08/18/2022 Overview (11/17/2022): MRI 03/13: IMPRESSION: 1. Mild lower lumbar levocurvature noted with trace anterolisthesis at L2-L3 without spondylolysis. 2. Multilevel discogenic degenerative changes and spondylosis with partial ankylosis of the L4-L5 intervertebral disc space. 3. Multilevel disc bulging and L4-L5 osteophytic ridging with multilevel bilateral facet arthropathy as discussed by level above, with severe spinal canal stenosis at L3-L4 and [id number] spinal canal stenosis at L2-L3, mild spinal canal stenosis at L4-L5 and [id number] spinal canal stenosis at L5-S1. 4. Multilevel bilateral subarticular/lateral recess stenosis as detailed by level above with multilevel traversing nerve root impingement. 5. Multilevel bilateral neural foraminal stenosis predominantly moderate in degree with multilevel exiting nerve root encroachment, most apparent at L3-L4 bilaterally. He was recommended surgery in April 2022 Phimosis 08/18/2022 Chronic low back pain 08/18/2022 BPH associated with nocturia 08/18/2022 Benign paroxysmal positional vertigo 08/18/2022 Aortic valve stenosis 08/18/2022 Overview (08/04/2023): ECHO at 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 08/04/2023 Lyme disease 07/06/2023 08/04/2023 Precordial chest pain 07/06/20232023 Encounters Date Type Department Care Team Description 05/31/2024 Telephone [facility] [address] [place] [address] Madison Nicole [place] feb recall 05/02/2024 10:30 AM EST Office Visit [facility] [address] [place] [address] Name, MD Alex Type 2 diabetes mellitus with other specified complication, without long-term current use of insulin ([facility]) (Primary Dx); Hypersomnia; Benign paroxysmal positional vertigo, unspecified laterality; Subacute cough; Encounter for immunization 04/30/2024 Telephone [facility] [address] [facility] [place] [address] Josie Cox [place] Chart Prep from Last 3 Months Immunizations Name Administration Dates Next Due Influenza High-dose Quadrivalent Preservative Fr ee 03/07/2023 Influenza injectable quadrivalent preservative f ree 04/20/2022 Influenza, High Dose Seasonal, Preservative Free 05/02/2024 Moderna Covid-19 Vaccine 12+ 05/01/2021 Pfizer Covid-19 Vaccine 12+ keyur-sucrose (Contreras C ap) 08/20/2020,07/30/2020 Pneumococcal Conjugate PCV 20 01/29/2022 RSV Bivalent 07/04/2023 Tdap 01/29/2022 Zoster, Recombinant 07/04/2023,10/02/2022 Social History Tobacco Use Types Packs/Day Years Used Date Smoking Tobacco: Never Smokeless Tobacco: Never Tobacco Cessation:Counseling Given: Not Answered Alcohol Use Standard Drinks/Week Comments Never 0 (1 standard drink = 0.6 oz pur e alcohol) Depression Answer Date Recorded Patient Health Questionnaire-9 Score 6 07/04/2023 Patient Health Questionnaire-9 Score 6 07/04/2023 Last PHQ-9: Questionnaire Data Not on file 0 07/04/2023 Housing Stability Answer Date Recorded What is your housing situation today? I have foreign conner 06/01/[address] you li ve. Do you have problems with any of the following? None of the above 06/01/2023 Food Insecurity Answer Date Recorded Within the past 12 months, y ou worried that your food would run out before you got money to buy more: Never True 06/01/2023 Within the past 12 months,th e food you bought just didn't last and you didn't have enough money to get more: Never True 02/2024 Transportation Answer Date Recorded In the past 12 months, has l ack of transportation kept you from medical appts, meetings, work or from getting things needed for daily living? No 06/01/2023 Utilities Answer Date Recorded In the past 12 months, has t he electric, gas, oil or water company threatened to shut off services in your home? No 06/01/2023 Depression Answer Date Recorded Patient Health Questionnaire-2 Score 1 07/04/2023 Sex and Gender Information Value Date Recorded Sex Assigned at Male 03/22/2022 10:40 AM EDT Legal Sex Male 10:40 AM EDT Gender Identity Male 03/22/2022 10:40 AM EDT Sexual Orientation Straight 03/22/2022 10 :40 AM EDT Last Filed Vital Signs Vital Sign Reading Time Taken Comments Blood Pressure 124/70 05/02/2024 10:54 AM EST Pulse 71 05/02/2024 10:54 AM EST Temperature 36.1 ??C (96.9 ??F) 05/02/2024 10:[address] Respiratory Rate 21 05/02/2024 10:54 AM EST Oxygen Saturation 98% 05/02/2024 10:54 AM EST Inhaled Oxygen Concentration - - Weight 84.8 kg (187 lb) 05/02/2024 10:54 AM EST Height 175.3 cm (5' 9 ) 05/02/2024 10:54 AM EST Body Mass Index 27.62 05/02/2024 10:54 AM EST Plan of Treatment Upcoming Encounters Date Type Department Care Team (Late st Contact Info) Description 08/13/2024 11:30 AM EDT Office Visit [facility] [address] [place] [id number] Name, MD Alex [address] [place] [address] Health Maintenance Due Date Last Done Comments Alcohol/Substance Use Screening 1957 Diabetes: Urine Protein Screening 11/19/2023 11/18/2022 Lipid Panel 11/19/2023 11/18/2022, 01/29/2022 COVID-19 Vaccine ( season) 2024 04/20/2022, 05/01/2021, 08/20/2020, Additional history exists Diabetes: Foot Exam 03/07/2024 03/07/2023, 03/07/2023, 03/07/2023, Additional history exists SDOH Screening 06/01/2024 06/01/2023 Depression Screening 07/04/2024 07/04/2023, 07/04/19 24 Diabetes: Hemoglobin A1C 09/20/2024 024, 10/18/2023, 03/07/2023, Additional history exists Tobacco Screening 05/02/2025 05/02/2024 Eye Exam 11/02/2025 11/03/2023, 11/03/2023 DTaP/Tdap/Td Vaccines (2 - Td or Tdap) 01/30/2032 01/29/2022 Hepatitis C Screening Completed 01/29/2022 Pneumococcal Vaccine: 50+ Years Completed 01/29/2022 RSV Patients and Patients Aged 60 years or older Completed 07/04/2023 Zoster Vaccines Completed 07/04/2023, 10/02/2022 Influenza Vaccine Completed 05/02/2024, , 04/20/2022 HIB Vaccines Aged Out No longer eligi ble based on patient's age to complete this topic HPV Vaccines Aged Out No longer eligi ble based on patient's age to complete this topic Hepatitis A Vaccines Aged Out No long er eligible based on patient's age to complete this topic Hepatitis B Vaccines Aged Out No long er eligible based on patient's age to complete this topic IPV Vaccines Aged Out No longer eligi ble based on patient's age to complete this topic Meningococcal Vaccine Aged Out No jolly poonam eligible based on patient's age to complete this topic RSV under 20 months Aged Out No longe r eligible based on patient's age to complete this topic Rotavirus Vaccines Aged Out No longer eligible based on patient's age to complete this topic Procedures Procedure Name Priority Date/Time Associated Diagnosis Comments POCT GLUCOSE Routine 05/02/2024 10:55 AM EST Type 2 diabetes mellitus with other specified complication, without long-term current use of insulin ([facility]) ECG 12-LEAD Routine 05/01/2024 6:48 AM EST Pre-op evaluation POCT GLYCATED HEMOGLOBIN, TOTAL Routine 03/23/2024 2:21 PM EDT Pre-op evaluation Type 2 diabetes mellitus with other specified complication, without long-term current use of insulin (CMS/HCC) AMB REFERRAL TO OPHTHALMOLOGY Routine 11/03/2023 History of cataract ALBUMIN, RANDOM URINE W/CREATININE Routine 11/18/2022 8:49 AM EDT Type 2 diabetes mellitus with other specified complication, without long-term current use of insulin (CMS/HCC) Atypical chest pain LIPID PANEL, STANDARD Routine 11/18/2022 8:49 AM EDT Type 2 diabetes mellitus with other specified complication, without long-term current use of insulin (CMS/HCC) Atypical chest pain ZZZ HISTORICAL HEPATITIS C AB W/REFL TO HCV RNA, QN, PCR Routine 01/29/2022 9:16 AM EDT from Last 3 Months or Most Recently Relevant to Health Maintenance Results * POCT Glucose (05/02/2024 10:55 AM EST) Glucose Blood, POC 91 60 - 200 mg/dL QC Media Lot # [id number] Lot# Expiration Date 53 Blood Capillary blood specimen / Unknown 05/02/2024 10:55 AM EST us Alex Khoury MD POINT OF CARE TEST ENTER/EDIT OR DERABLES Final Result * ECG 12 lead (05/01/2024 6:48 AM EST) Narrative Name, MD Alex - 05/01/2024 6:48 AM EST NSR, HR of 71, RBBB, no significant changes from baseline us Alex Khoury MD ECG ORDERABLES Final Result * POCT HGB A1C (03/23/2024 2:21 PM EDT) Hemoglobin A1C 5.5 4.0 - 6.0 % QC Media Lot # [id number] Lot# Expiration Date [id number] Comment:N Blood 03/23/2024 2:21 PM EDT us Alex Khoury MD POINT OF CARE TEST ENTER/EDIT OR DERABLES Final Result * Referral to Ophthalmology (11/03/2023) Result Shaye Johnson Name OUTPATIENT REFERRAL ORDERABLES F inal Result * Albumin, Random Urine W/Creatinine (11/18/2022 8:49 AM EDT) Creatinine, Random Urine 163 20 - 320 mg/dL [facility] Albumin, Urine 0.5 See Note: mg/dL [facility] Comment: Reference Range: Reference Range Not established Albumin/Creatinin e Ratio, Random Urine 3 <30 mcg/mg creat [facility] Comment: The ADA defines abnormalities in albumin excretion as follows: Albuminuria Category ?Result (mcg/mg creatinine) Normal to Mildly increased ?? <30 Moderately increased ? 30-299 Severely increased ? > OR = 300 The ADA recommends that at least two of three specimens collected within a 3-6 month period be abnormal before considering a patient to be within a diagnostic category. 11/18/2022 8:49 AM EDT 11/18/2022 8:50 AM EDT us Alex Khoury MD LAB URINE ORDERABLES Final Resul t [facility] [address], [place] [address] [facility] [address] [place] [address] * (ABNORMAL) Lipid Panel, Standard (11/18/2022 8:49 AM EDT) Cholesterol, Total 102 <200 mg/dL [facility] HDL Cholesterol 36(L) > OR = 40 mg/dL [facility] Triglycerides 67 <150 mg/dL [facility] LDL Cholesterol 52 mg/dL (calc) [facility] Comment: Reference range: <100 Desirable range <100 mg/dL for primary prevention; ?? <70 mg/dL for patients with CHD or diabetic patients with > or = 2 CHD risk factors. LDL-C is now calculated using the Angela calculation, which is a validated novel method providing better accuracy than the Friedewald equation in the estimation of LDL-C. Isaias LICONA et al. KAREN. 2013;310(19): 3436-1714 (http://Reply.io.ToonTime/faq/TWC126) Chol/HDLC Ratio 2.8 <5.0 (calc) [facility] Non-HDL Cholesterol 66 <130 mg/dL (calc) [facility] Comment: For patients with diabetes plus 1 major ASCVD risk factor, treating to a non-HDL-C goal of <100 mg/dL (LDL-C of <70 mg/dL) is considered a therapeutic option. Blood Venous blood specimen / Unknown 11/18/2022 8:49 AM EDT 11/18/2022 8:50 AM EDT us Alex Khoury MD LAB BLOOD ORDERABLES Final Resul t [facility] [address], [place] [address] [facility] [address] [place] [address] * HEPATITIS C AB W/REFL TO HCV RNA, QN, PCR (01/29/2022 9:16 AM EDT) HEPATITIS C ANTIBODY NON-REACT AMELIA NON-REACT AMELIA [facility] INDEX 0.19 <1.00 [facility] Comment: ?? HCV antibody was non-reactive. There is no laboratory ?? evidence of HCV infection. ?? In most cases, no further action is required. However, if recent HCV exposure is suspected, a test for HCV RNA (test code 73025) is suggested. ?? For additional information please refer to http://Reply.io.Digital Ally/faq/BQR76k5 (This link is being provided for informational/ educational purposes only.) ?? 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
--- OUTSIDE RECORDS SUMMARY | 2024-07-03 14:59 | XMS_ITS | Encounter Summary ---
Author Organization [employer] Address [address] [facility] 7 [place] [address] Care Team Providers Care Cloud Security Architect Name Role Phone Name, Alex PENA Primary Care Provider [phone] Reason for Visit * Reason Onset Date Comments Med Refill 04/08/2023 Encounter Details Date Type Department Care Team ([facility] st Contact Info) Description 04/08/2023 Telephone [facility] [address] [place] [address] Name, MD Alex [address] [place] [address] Med Refill Social History Tobacco Use Types Packs/Day Years Used Date Smoking Tobacco: Never Smokeless Tobacco: Never Alcohol Use Standard Drinks/Week Comments Never 0 (1 standard drink = 0.6 oz pur e alcohol) Depression Answer Date Recorded Patient Health Questionnaire-9 Score 0 05/05/2022 Housing Stability Answer Date Recorded What is your housing situation today? I have foreign conner 03/07/[address] you li ve. Do you have problems with any of the following? None of the above 03/07/2023 Food Insecurity Answer Date Recorded Within the past 12 months, y ou worried that your food would run out before you got money to buy more: Never True 03/07/2023 Within the past 12 months,th e food you bought just didn't last and you didn't have enough money to get more: Never True Transportation Answer Date Recorded In the past 12 months, has l ack of transportation kept you from medical appts, meetings, work or from getting things needed for daily living? No 03/07/2023 Utilities Answer Date Recorded In the past 12 months, has t he electric, gas, oil or water company threatened to shut off services in your home? No 03/07/2023 Depression Answer Date Recorded Patient Health Questionnaire-2 Score 0 05/05/2022 Sex and Gender Information Value Date Recorded Sex Assigned at Male 03/22/2022 10:40 AM EDT Legal Sex Male 10:40 AM EDT Gender Identity Male 03/22/2022 10:40 AM EDT Sexual Orientation Straight 03/22/2022 10 :40 AM EDT documented as of this encounter Miscellaneous Notes * Telephone Encounter - Rosy Galindo LPN - 04/08/2023 2:53 PM EST Flomax was sent to [facility] on 03/22/23 #60 with 3 refills and Janument to soon for refill. * Telephone Encounter - Barbara Malcolm - 04/08/2023 2:50 PM EST Tc from pt requesting medication refill on SITagliptin-metFORMIN (Janumet) 50- 1000 MG tablet and tamsulosin (Flomax) 0.4 MG 24 hr capsule to be sent to [facility] [address] [place] [address] documented in this encounter Plan of Treatment Upcoming Encounters Date Type Department Care Team (Late st Contact Info) Description 08/13/2024 11:30 AM EDT Office Visit [facility] [address] [place] [address] Name, MD Alex [address] [place] [address] documented as of this encounter Visit Diagnoses Not on filedocumented in this encounter Additional Health Concerns Assessment Noted Time PHQ-9 Depression Total Score: 0 05/05/20 22 2:19 PM EST documented as of this encounter Care Teams Cloud Security Architect Relationship Specialty Start Date End Date Name, MD Alex [address] [place] [address] PCP - General Family Medicine 01/29/22 documented as of this encounter
== END ==
LOC: HO.SL 13:57
PROVIDERS: PCP Internal Medicine Geriatric Medicine; Visit Provider Internal Medicine Geriatric Medicine
DX: G47.33 Obstructive sleep apnea (adult) (pediatric) (principal); G47.10 Hypersomnia, unspecified
CPT/HCPCS: 95806

== ENCOUNTER → 2024-07-03 19:00 | Outpatient (BNV) | payer OTHER, SELFPAY | PROVIDERS: PCP Internal Medicine Geriatric Medicine; Visit Provider Internal Medicine | DX: G47.33 Obstructive sleep apnea (adult) (pediatric) (principal) | CPT/HCPCS: 95806 ==

== ENCOUNTER 2024-10-16 09:03 | Outpatient (REF) | payer OTHER, SELFPAY ==
--- OUTSIDE RECORDS SUMMARY | 2024-10-16 09:33 | XMS_ITS | Encounter Summary ---
Author Organization [employer] Address [address] [place] [address] 7 [place] [address] Care Team Providers Care Senior Sql Server Developer Name Role Phone Name, Alex PENA Primary Care Provider [phone] Reason for Visit * Reason Onset Date Comments FYI 08/13/2024 Encounter Details Date Type Department Care Team ([facility] st Contact Info) Description 08/13/2024 Telephone [facility] [address] [place], [place] [phone] Name, MD Alex [address] [place] [address] FYI Social History Tobacco Use Types Packs/Day Years [...] is your housing situation today? I have foreignjosesito conner 06/01/[address] you [...] enough money to get more: Never True 01/ 02/2024 Transportation Answer Date Recorded In the [...] encounter Miscellaneous Notes * Telephone Encounter - Kavya Kelly - 08/13/2024 12:58 PM EDT Tc from [facility] Edger Saw Operator to report request for cpap machine was submitted and is waiting for approval. documented in this encounter Plan of Treatment Upcoming Encounters Date Type Department Care Team (Late st Contact Info) Description 11/29/2024 10:30 AM EDT Office Visit [facility] [address] [place] [address] Name, MD Alex [address] [place] [address] documented as of this encounter Visit Diagnoses Not on filedocumented in this encounter Additional Health Concerns Assessment Noted Time PHQ-9 Depression Total Score: 6 07/04/19 24 1:35 PM EST documented as of this encounter Care Teams Senior Sql Server Developer Relationship Specialty Start Date End Date Name, MD Alex [address] [place] [address] PCP - General Family Medicine 01/29/22 documented as of this encounter
[2024-10-16 11:07] LABS: MANUAL DIFF FLAG NO
[2024-10-16 11:15] LABS: Basophils Percent Auto 0.4 % (0-2); Eosinophils Percent Auto 0.4 % (0-4); Hematocrit 45.3 % (42.0-52.0); Imm Gran Abs Auto 0.02 X10*3/uL (0.00-0.03); Imm Gran Pct Auto 0.2 % (0.0-0.4); Mean Corpuscular HGB Conc 33.1 g/dl (31.0-36.0); Mean Corpuscular Hemoglobin 29.6 pg (27.0-33.0); Mean Corpuscular Volume 89.5 fL (80.0-98.0); Mean Platelet Volume 12.1 fL (9.4-12.4); Monocytes Absolute Auto 1.3 X10*3/uL (0.1-1.2); Monocytes Percent Auto 14.3 % (2-11); Neutrophils Absolute Auto 4.7 x10*3/uL (2.0-8.3); Neutrophils Percent Auto 51.7 % (45-73); Platelet Count 170 X10*3/uL (160-400); Red Blood Count 5.06 X10*6/uL (4.60-5.80); Red Cell Distribution Width 12.7 % (11.0-16.0); White Blood Count 9.2 X10*3/uL (4.8-10.8)
[2024-10-16 11:54] LABS: Alanine Aminotransferase 26 U/L (0-40); Albumin Level 3.9 g/dL (3.5-5.0); Alkaline Phosphatase 72 U/L (39-117); Anion Gap 9 (12-20); Aspartate Amino Transferase 30 U/L (5-37); Bilirubin Total 0.9 mg/dL (0.0-1.0); Blood Urea Nitrogen 16 mg/dL (9-16); Calcium 9.4 mg/dL (8.4-10.2); Carbon Dioxide 31 mmol/L (22-29); Chloride 106 mmol/L (96-108); Cholesterol 91 mg/dL (<200); Estimated Glomerular Filt Rate 58; Glucose Random 100 mg/dL (60-115); HDL Cholesterol 34 mg/dL (>40); LDL Cholesterol Calculated 47 mg/dL (<100); Potassium 3.9 mmol/L (3.3-5.1); Sodium 142 mmol/L (135-145); Total Protein 7.2 g/dL (6.5-8.0); Triglycerides 52 mg/dL (<150)
[2024-10-16 11:57] LABS: Creatinine Urine 214.89 mg/dL; Microalbum/Creatinine Ratio Ur 4.6 ug/mg cr (<30)
== END 2024-10-16 09:04 | disposition home or self-care (01) ==
LOC: HO.HHCL 09:03
PROVIDERS: Visit Provider Internal Medicine Geriatric Medicine
DX: G47.10 Hypersomnia, unspecified (principal); E11.69 Type 2 diabetes mellitus with other specified complication; H81.10 Benign paroxysmal vertigo, unspecified ear
CPT/HCPCS: 36415; 80053; 80061; 82043; 82570; 85025

== ENCOUNTER 2025-02-14 11:37 | Outpatient (AMB) | payer OTHER, SELFPAY ==
--- NOTE | 2025-02-14 11:38 | MHC.OFFVIS ---
Intake Visit Reasons: Follow Up Supervisor Glycerin Required: Yes Supervisor Glycerin Name: #[id number] Accompanied by: Family/Other Allergies No Known Allergies Allergy (Verified 02/14/25 11:43) Medication List - Last Reconciled 02/14/25 by Radha Keenan CNP atorvastatin 10 mg PO DAILY levetiracetam 250 mg PO BID 90 days nabumetone 750 mg PO BID PRN sitagliptin phos-metformin 50-1,000 mg (Janumet) 1 tab PO BEDTIME tamsulosin 0.8 mg PO BEDTIME HPI Comments Details: 79-year-old man with HTN, type II DM, and Lyme disease in 2021, with generalized seizure disorder. Seizure included unreponsiveness, grunting noise, and amnesia. He was doing okay. He was taking levetiracetam twice a day. No medication side effects. No seizures. He was walking with walker, no falls. Sleep was okay. [facility] Medical History RBBB Spinal stenosis Elevated cholesterol Lyme disease Gordon's palsy Phimosis Nocturia BPH (benign prostatic hyperplasia) Diabetes mellitus, type II Chronic back pain Surgical History No pertinent past surgical history Social History Household Members: Spouse and Children Housing: House Housing Other:: 2nd floor Are you a primary care coordinator to a significant other at home: No Do you presently have visiting nurse or other home services: Yes (appeals writer 15 hrs a week) Unable to assess alcohol history related to: Unknown Alcohol intake: never Patient Tobacco Use Status: Never used Tobacco e-Cigarette/Vaping Use: Never Used Advance Directives Date on File: 06/01/23 service: No Review of Systems Const Denies chills, Denies daytime sleepiness, Denies difficulty sleeping, Denies fatigue, Denies fever(s), Denies frequent falls, Denies headache(s), Denies increased appetite, Denies poor appetite, Denies snoring, Denies weakness, Denies weight gain and Denies weight loss Eyes Denies loss of vision ENT Denies vertigo, Denies dizziness and Denies headache(s) Card Denies chest pain at rest, Denies chest pain with activity, Denies syncope, Denies leg edema and Denies palpitations Resp Denies snoring GI Denies constipation, Denies heartburn, Denies diarrhea and Denies nausea Denies urinary frequency, Denies urinary incontinence and Denies urinary urgency Musc Denies abnormal gait, Denies numbness and Denies tingling Skin/Breast Denies dry skin and Denies rash Neuro Denies abnormal gait, Denies vertigo, Denies dizziness, Denies syncope, Denies frequent falls, Denies headache(s), Denies lack of coordination, Denies loss of vision, Denies memory loss, Denies numbness, Denies restless legs, Denies seizure-like activity, Denies tingling, Denies paresthesias, Denies tremor(s) and Denies weakness Psych Denies anxiety, Denies depression, Denies auditory hallucinations, Denies memory loss, Denies visual hallucinations and Denies suicidal ideation Endo Denies fatigue and Denies palpitations Physical Exam Const Other: General Appearance:? normal, in no acute distress. Skin:? no rashes, no significant birthmarks. Heart:? S1, S2 normal, no murmurs. Lungs:? clear anteriorly and posteriorly. Extremities:? no edema. Psych:? alert, oriented, cognitive function intact, cooperative with exam. Neuro Other: Mental Status:?Normal attention, orientation, memory and affect.? Cranial Nerves:?Pupils are equal, round and reactive to light. External occular muscles are intact. Visual sorto are full. Face is symmetrical. Facial sensations are normal. Tongue is midline. Palate elevates symmetrically. Shoulder shrugging is normal. Hearing to bedside conversation is normal. Motor Examination:?DTRs trace. Sensory Exam:?....? Coordination:?No ataxia,?no titubation.? Gait Exam: Cautious with walker. Cerebellar Signs:?Midzeo-ea-thjz is okay. Extrapyramidal System:?No tremor, rigidity with normal facial expressions.? Pronator Drift:?Not present.? Involuntary Movements:?No tremors seen.? Speech:?Normal.? Results Reviewed Results Reviewed: Routine EEG at office in Mar 2023: Slow CT brain [place] [facility] [place]: Mild diff atrophy, mild MVD CTA brain and neck at [facility] [place] Jan 2023: OK, cervical DJD Echocardiogram at [facility] in Jan 2023: no sig path EKG at [facility] in Jan 2023: 1st deg AV block. Assessment & Plan Assessment & Plan (1) Seizure disorder: Code(s): G40.909 - Epilepsy, unspecified, not intractable, without status epilepticus Category: Medical Plan: Continue levetiracetam 250mg 1 tablet twice a day. (2) Cerebral microvascular disease: Code(s): I67.89 - Other cerebrovascular disease Category: Medical Plan . Medications: Refilled levetiracetam 250 mg PO BID 180 tabs 1RF 90 days Coding Level of Care Code Est Pt Level 3 (67852) Diagnoses Seizure disorder G40.909 Cerebral microvascular disease I67.89
--- OUTSIDE RECORDS SUMMARY | 2025-02-14 16:29 | XMS_ITS | Encounter Summary ---
Author Organization [employer] Address [address] [facility] 7 [place] [address] Care Team Providers Care Media/Instructional Designer Name Role Phone Name, Alex PENA Primary Care Provider [phone] Reason for Visit * Reason Onset Date Comments Med Refill 04/08/2023 Encounter Details Date Type Department Care Team ([facility] st Contact Info) Description 04/08/2023 Telephone [facility] [address] [place], [place] [phone] Name, MD Alex [address] [place], [place] [phone] Med Refill Social History Tobacco Use Types [...] 2:53 PM EST Flomax was sent to [facility] on 03/22/23 #60 with 3 refills and Janument to soon for refill. * Telephone Encounter - Barbara Malcolm - 04/08/2023 2:50 PM EST Tc from pt requesting medication refill on SITagliptin-metFORMIN (Janumet) 50- 1000 MG tablet and tamsulosin (Flomax) 0.4 MG 24 hr capsule to be sent to [facility] [address] [place] [address] documented in this encounter Plan of Treatment Upcoming Encounters Date Type Department Care Team (Late st Contact Info) Description 02/26/2025 11:30 AM EDT Office Visit [facility] [address] [place] [address] Name, MD Alex [address] [place] [address] documented as of this encounter Visit Diagnoses Not on filedocumented in this encounter Additional Health Concerns Assessment Noted Time PHQ-9 Depression Total Score: 0 05/05/20 22 2:19 PM EST documented as of this encounter Care Teams Media/Instructional Designer Relationship Specialty Start Date End Date Name, MD Alex [address] [place] [address] PCP - General Family Medicine 01/29/22 documented as of this encounter
--- OUTSIDE RECORDS SUMMARY | 2025-02-14 16:29 | XMS_ITS | Clinical Summary ---
Author Organization [employer] Address [address] [facility] [address] [place] [address] Care Team Providers Care Technical Clerk Name Role Phone Name, Alex PENA Primary Care Provider [phone] Allergies No known active allergies Medications nabumetone [...] SAME MEAL 180 capsule 3 05/02/2024 Active baclofen (Lioresal) 20 MG tablet Take 1 tablet (20 mg) by mouth 2 times daily for 7 days. 14 tablet 10/17/2024 Active Active Problems Problem Noted Date Diagnosed Date Obstructive sleep apnea 07/12/2024 Neck muscle spasm 03/23/2024 Assessment & Plan (03/23/2024 2:16 PM EDT): Rx sent for flexeril 5 mg TID prn for neck spasms Med instructions and precautions reviewed including medication may cause drowsiness. Hypersomnia 03/23/2024 Assessment & Plan (03/23/2024 2:17 PM EDT): Reordered home sleep study referral today Left leg weakness 10/18/2023 Gastroenteritis 10/14/2023 Osteoarthritis 10/14/2023 RBBB 07/06/2023 Non-rheumatic aortic stenosis 07/06/2023 Seizure 04/08/2023 [...] severe spinal canal stenosis at L3-L4 and ihpzehcq-yv-yhnzda spinal canal stenosis at L2-L3, mild spinal canal stenosis at L4-L5 and krdp-ez-dojuzesb spinal canal stenosis at L5-S1. 4. Multilevel [...] valve stenosis 08/18/2022 Overview (08/04/2023): [place] [facility] [place] Mild to mod Aortic stenosis Mild AR Resolved Problems Problem Noted Date Diagnosed Date Resolved Date Pre-op evaluation 03/23/2024 07/12/2024 Assessment & Plan (03/23/2024 2:14 PM EDT): [...] -Stop Synjardy XR 1 day before surgery Fall 10/14/2023 07/12/2024 Abnormal ECG 07/06/2023 08/04/2023 Acute diarrhea 07/06/2023 08/04/2023 Acute metabolic encephalopathy 07/06/2023 08/04/2023 Bacterial conjunctivitis 07/06/2023 Gordon's palsy 07/06/2023 08/04/2023 Bronchitis 07/06/2023 08/04/2023 Cardiac arrhythmia, unspecified 07/06/2023 08/04/2023 Cervical radiculopathy 07/06/202308/03 COVID-19 07/06/2023 08/04/2023 Elevated troponin 07/06/2023 08/04/2023 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 08/04/2023 Lyme disease 07/06/2023 08/04/2023 Precordial chest pain 07/06/20232023 Weakness 07/06/2023 07/12/2024 Encounters Date Type Department Care Team Description 11/29/2024 10:30 AM EDT Office Visit [facility] [address] [place] [address] Name, MD Alex Type 2 diabetes mellitus with other specified complication, without long-term current use of insulin ([facility]) (Primary Dx); Diabetic polyneuropathy associated with type 2 diabetes mellitus ([facility]); Seizure ([facility]); Aortic valve stenosis, etiology of cardiac valve disease unspecified; Obstructive sleep apnea; Urinary incontinence, unspecified type 11/29/2024 Telephone [facility] [address] [place] [address] NameAlex MD Durable Medical Equipment 11/29/2024 Telephone [facility] [address] [place] [address] NameAlex MD 11/29/2024 Travel 11/28/2024 Telephone [facility] [address] [place], [place] [phone] Madison Nicole MA chart prep 11/22/2024 Travel from Last 3 Months Immunizations Immunization Administration Dates Next Due Influenza High-dose Quadrivalent [...] Date Recorded Patient Health Questionnaire-9 Score 6 11/29/2024 Patient Health Questionnaire-9 Score 6 11/29/2024 Last PHQ-9: Questionnaire Data Not on file 0 11/29/2024 Housing Stability Answer Date Recorded What is your housing situation today? I have foreign conner 11/29/[address] you li ve. Do you have problems with any of the following? None of the above 11/29/2024 Food Insecurity Answer Date Recorded Within the past 12 months, y ou worried that your food would run out before you got money to buy more: Never True 11/29/2024 Within the past 12 months,th e food you bought just didn't last and you didn't have enough money to get more: Never True 02/2025 Transportation Answer Date Recorded In the past 12 months, has l ack of transportation kept you from medical appts, meetings, work or from getting things needed for daily living? No 11/29/2024 Utilities Answer Date Recorded In the past 12 months, has t he electric, gas, oil or water company threatened to shut off services in your home? No 11/29/2024 Depression Answer Date Recorded Patient Health Questionnaire-2 Score 1 11/29/2024 Internet Access Answer Date Recorded Internet Access Q1 Yes 11/29/2024 Internet Access Q2 Not on file 11/29/2024 Sex and Gender Information Value Date Recorded Sex Assigned at Male 03/22/2022 10:40 AM EDT Legal Sex Male 10:40 AM EDT Gender Identity Male 03/22/2022 10:40 AM EDT Sexual Orientation Straight 03/22/2022 10 :40 AM EDT Last Filed Vital Signs Vital Sign Reading Time Taken Comments Blood Pressure 128/84 11/29/2024 10:45 AM EDT Pulse 75 11/29/2024 10:45 AM EDT Temperature 35.9 C (96.6 F) 11/29/2024 10:45 AM EDT Respiratory Rate 12 11/29/2024 10:45 AM EDT Oxygen Saturation 98% 11/29/2024 10:45 AM EDT Inhaled Oxygen Concentration - - Weight 87.3 kg (192 lb 6.4 oz) 11/29/2024 10:45 AM EDT Height 175.3 cm (5' 9 ) 11/29/2024 10:45 AM EDT Body Mass Index 28.41 11/29/2024 10:45 AM EDT Plan of Treatment Upcoming Encounters Date Type Department Care Team (Late st Contact Info) Description 02/26/2025 11:30 AM EDT Office Visit [facility] [address] [place] [address] Name, MD Alex [address] [facility] [address] Health Maintenance Due Date Last Done Comments COVID-19 Vaccine ( season) 2025 04/20/2022, 05/01/2021, 08/20/2020, Additional history exists Influenza Vaccine (#1) 2025 , 03/07/2023, 04/20/2022 Diabetes: Hemoglobin A1C 06/01/2025 025, 03/23/2024, 10/18/2023, Additional history exists Diabetes: Urine Protein Screening 10/16/2025 10/16/2024, 11/18/2022 Lipid Panel 10/16/2025 10/16/2024, 10/22, 01/29/2022 Eye Exam 11/02/2025 11/03/2023, 11/03/2023 Alcohol/Substance Use Screening 11/29/2025 11/29/2024 Depression Screening 11/29/2025 11/29/2024, 11/30/19 Diabetes: Foot Exam 11/29/2025 11/29/2024, 11/29/2024, 11/29/2024, Additional history exists SDOH Screening 11/29/2025 11/29/2024 Tobacco Screening 11/29/2025 11/29/2024 DTaP/Tdap/Td Vaccines (2 - Td or Tdap) 01/30/2032 01/29/2022 Hepatitis C Screening Completed 01/29/2022 Pneumococcal Vaccine: 50+ Years Completed 01/29/2022 RSV Patients and Patients Aged 60 years or older Completed 07/04/2023 Zoster Vaccines Completed 07/04/2023, 10/02/2022 HIB Vaccines Aged Out No longer eligi [...] patient's age to complete this topic Meningococcal B Vaccine Aged Out No l onger eligible based on patient's age to complete [...] Name Priority Date/Time Associated Diagnosis Comments POCT GLYCATED HEMOGLOBIN, TOTAL Routine 11/29/2024 10:47 AM EDT Type 2 diabetes mellitus with other specified complication, without long-term current use of insulin ([facility]) POCT GLUCOSE Routine 11/29/2024 10:46 AM EDT Type 2 diabetes mellitus with other specified complication, without long-term current use of insulin ([facility]) ALBUMIN, RANDOM URINE W/CREATININE Routine 10/16/2024 9:06 AM EDT Type 2 diabetes mellitus with other specified complication, without long-term current use of insulin ([facility]) Hypersomnia Benign paroxysmal positional vertigo, unspecified laterality LIPID PANEL, STANDARD Routine 10/16/2024 9:06 AM EDT Type 2 diabetes mellitus with other specified complication, without long-term current use of insulin ([facility]) Hypersomnia Benign paroxysmal positional vertigo, unspecified laterality AMB REFERRAL TO OPHTHALMOLOGY Routine 11/03/2023 History of cataract ZZZ HISTORICAL HEPATITIS C AB W/REFL TO HCV RNA, QN, PCR Routine 01/29/2022 9:16 AM EDT from Last 3 Months or Most Recently Relevant to Health Maintenance Results * POCT HGB A1C (11/29/2024 10:47 AM EDT) Hemoglobin A1C 5.5 4.0 - 5.7 % QC Media Lot # [id number] Lot# Expiration Date Blood 11/29/2024 10:4 7 AM EDT us Alex Name MD POINT OF CARE TEST ENTER/EDIT OR DERABLES Final Result * POCT Glucose (11/29/2024 10:46 AM EDT) Glucose Blood, POC 91 60 - 200 mg/dL QC Media Lot # [id number] Lot# Expiration Date Blood Capillary blood specimen / Unknown 11/29/2024 10:46 AM EDT us Alex Khoury MD POINT OF CARE TEST ENTER/EDIT OR DERABLES Final Result * Albumin, Random Urine W/Creatinine (10/16/2024 9:06 AM EDT) Creatinine, Urine 214.89 mg/dL [facility] Microalbumin Urine 10.0 mg/L [facility] Microalbum Creatinine Ratio Ur 4.6 <30 ug/mg cr [facility] Comment:Albumin/Creatinine R atio Reference Ranges: Normal: < 30 ug/mg creatinine Microalbuminuria: 30 - 300 ug/mg creatinineClinical Albuminuria: > 300 ug/mg creatinine Urine (Urine, Random) 10/16/2024 9:06 AM EDT 10/16/2024 11:06 AM EDT us Alex Khoury MD LAB URINE ORDERABLES Final Resul t [facility] [address] [place] [address] [phone] * (ABNORMAL) Lipid Panel, Standard (10/16/2024 9:06 AM EDT) Triglycerides 52 <150 mg/dL [facility] Comment:Desirable Triglyceri de: less than 150 mg/dLBorderline High Triglyceride 150-199 mg/dLHigh Triglyceride: 200-499 mg/dLVery High Triglyceride: greater than or equal to 5OO mg/dL Cholesterol 91 <200 mg/dL [facility] Comment:Desirable Cholestero l: less than 200 mg/dLBorderline High Cholesterol: 200-239 mg/dLHigh Cholesterol: greater than 239 mg/dL LDL Cholesterol Calculated 47 <100 mg/dL [facility] Comment:Desirable LDL: less than 100 mg/dLNear Optimal/Above Optimal LDL: 110- 129 mg/dLBorderline High LDL: 130-159 mg/dLHigh LDL: 160-189 mg/dLVery High LDL: greater than or equal to 190 mg/dL HDL Cholesterol 34(L) >40 mg/dL [facility] Comment:Desirable HDL: great er than 40 mg/dL Note: This HDL assay may give artificially low results in patients with liver disease. Blood Venous blood specimen / Unknown 10/16/2024 9:06 AM EDT 10/16/2024 11:04 AM EDT Result Shaye Khoury MD LAB BLOOD ORDERABLES Final Resul t Performing Organization Address [facility]/ZIP Co de Phone Number [facility] [address] [place] [phone] * Referral to Ophthalmology (11/03/2023) Result Shaye Khoury MD OUTPATIENT REFERRAL ORDERABLES F inal Result * HEPATITIS C AB W/REFL TO HCV RNA, QN, PCR (01/29/2022 9:16 AM EDT) HEPATITIS C ANTIBODY NON-REACT AMELIA NON-REACT AMELIA [facility] INDEX 0.19 <1.00 [facility] Comment: HCV antibody was non-reactive. There is no laboratory evidence of HCV infection. In most cases, no further action is required. However, if recent HCV exposure is suspected, a test for HCV RNA (test code 63446) is suggested. For additional information please refer to http://[email or web address]).kabuku/faq/FLQ07s7 (This link is being provided for informational/ educational purposes only.) 01/29/2022 9:16 AM EDT us Candice [facility]ISTORICAL/NON ORDERABLE LABS Fi nal Result [place] [id number] from Last 3 Months or Most Recently Relevant to Health Maintenance Insurance [facility] STANDARD [facility] DETENTION OPTIONS (HMO D-SNP) Advance Directives Documents on File Type Date Recorded Patient Operation Research Analyst Expl anation Advance Directives and Living Will 04/29/2022 Care Teams Technical Clerk Relationship Specialty Start Date End Date Name, MD Alex [address] [place] [address] PCP - General Family Medicine 01/29/22
--- OUTSIDE RECORDS SUMMARY | 2025-02-14 16:29 | XMS_ITS | Encounter Summary ---
Author Organization [employer] Address [address] [facility] 7 [place] [address] Care Team Providers Care Harness Maker Name Role Phone Name, Alex PENA Primary Care Provider [phone] Reason for Visit * Reason Onset Date Comments FYI 08/13/2024 Encounter Details Date Type Department Care Team ([facility] st Contact Info) Description 08/13/[address] [facility] [address] [place], [place] [phone] Name, MD Alex [address] [place], [place] [phone] FYI Social History Tobacco Use Types Packs/Day [...] your housing situation today? I have foreign sing 06/01/[address] you li [...] - 08/13/2024 12:58 PM EDT Tc from [facility] [employer] to report request for cpap machine was submitted and is waiting for approval. documented in this encounter Plan of Treatment Upcoming Encounters Date Type Department Care Team (Late st Contact Info) Description 02/26/2025 11:30 AM EDT Office Visit [facility] [address] [place] [phone] Name, MD Alex [address] [place] [address] documented as of this encounter Visit Diagnoses Not on filedocumented in this encounter Additional Health Concerns Assessment Noted Time PHQ-9 Depression Total Score: 6 07/04/19 24 1:35 PM EST documented as of this encounter Care Teams Harness Maker Relationship Specialty Start Date End Date Name, MD Alex [address] [place] [phone] PCP - General Family Medicine 01/29/22 documented as of this encounter
== END 2025-02-14 11:51 | disposition home or self-care (01) ==
LOC: HO.HSM 11:37
PROVIDERS: PCP Internal Medicine Geriatric Medicine; Visit Provider Registered Nurse
DX: G40.909 Epilepsy, unspecified, not intractable, without status epilepticus (principal); I67.89 Other cerebrovascular disease
CPT/HCPCS: 99213

== ENCOUNTER → 2025-02-14 11:37 | Outpatient (BNVA) | payer OTHER, SELFPAY | PROVIDERS: PCP Internal Medicine Geriatric Medicine; Visit Provider Registered Nurse | DX: I10 Essential (primary) hypertension (principal); G40.909 Epilepsy, unspecified, not intractable, without status epilepticus; I67.89 Other cerebrovascular disease; E11.9 Type 2 diabetes mellitus without complications | CPT/HCPCS: 99212 ==